=== PATIENT | male | born 1935 | race Two or more races ===

== ENCOUNTER → 2017-06-20 | Outpatient (REF) | payer MEDICARE, BC | LOC: M LAB REF 17:30 | PROVIDERS: ATTEND Surgery | DX: E11.621 Type 2 diabetes mellitus with foot ulcer (principal); L97.514 Non-pressure chronic ulcer of other part of right foot with necrosis of bone ==

== ENCOUNTER → 2017-07-04 | Outpatient (CLI) | payer MEDICARE, BC ==
--- NOTE | 2017-07-04 13:37 | REP ---
Right lower extremity Doppler arterial ultrasound. History: Type 2 diabetes with foot ulcer. Arterial Doppler findings: The distal calf arteries are noncompressible and ankle brachial indices were therefore unobtainable. Significant atherosclerotic plaquing is seen with evidence of moderate stenosis of the common femoral artery on the right, severe stenosis of proximal superficial femoral artery and occlusion in the proximal to mid superficial femoral artery. The distal SFA reconstitutes. Monophasic flow is seen fairly slow in popliteal, anterior tibial and posterior tibial and proximal calf. Severe calcification is seen in the distal anterior and posterior tibial arteries which are noncompressible. Doppler velocity flow chart: Right lower extremity: Right BRUSH MACHINE SETTER 79 cm/s Profunda 110 Proximal SFA 164 Mid SFA 0 Distal SFA 24, monophasic Popliteal 25 Proximal MARQUEZ 25 Tibioperoneal trunk 19 Proximal PROJECT BUILDER 20 Distal PROJECT BUILDER 43 Distal MARQUEZ 21 Signed by Randy Hunter MD 07/04/2017 03:49 P
== END ==
LOC: M RAD 10:36
PROVIDERS: ATTEND Surgery
DX: E11.621 Type 2 diabetes mellitus with foot ulcer (principal); M79.89 Other specified soft tissue disorders

== ENCOUNTER → 2017-08-12 | Outpatient (CLI) | payer MEDICARE, BC ==
[~2017-08-12] MED LIST: CLOPIDOGREL 75 MG TAB As Ordered; HEPARIN 1,000 UNITS/ML 10ML VIAL (FOR RADIOLOGY& DIALYSIS ONLY) As Ordered; ISOVUE-300 61% 50ML VIAL (Q9967) As Ordered; MIDAZOLAM INJ 2 MG/2 ML VIAL (J2250) As Ordered; fentaNYL 100 MCG/2 ML INJECTION (J3010) As Ordered
== END | disposition home or self-care (01) ==
LOC: M IRPRO 07:32
DX: I70.235 Atherosclerosis of native arteries of right leg with ulceration of other part of foot (principal); E11.621 Type 2 diabetes mellitus with foot ulcer; L97.519 Non-pressure chronic ulcer of other part of right foot with unspecified severity
CPT/HCPCS: 37225

== ENCOUNTER → 2017-10-10 | Outpatient (REF) | payer MEDICARE, BC | LOC: M LAB REF 16:17 | DX: D23.71 Other benign neoplasm of skin of right lower limb, including hip (principal); L94.2 Calcinosis cutis; E11.621 Type 2 diabetes mellitus with foot ulcer; L97.514 Non-pressure chronic ulcer of other part of right foot with necrosis of bone | CPT/HCPCS: 88304 ==

== ENCOUNTER → 2017-10-21 | Outpatient (REF) | payer MEDICARE, BC ==
[2017-10-21 15:59] LABS: BASO # 0.1 10^3/uL (0.0-0.2); BASO % 0.6 % (0.0-1.0); EOS % 0.2 % (0.0-3.0); HEMOGLOBIN 14.5 g/dl (13.5-17.5); IMMATURE GRANULOCYTE % 0.7 % (0-3.0); LYMPH # 0.8 10^3/uL (1.5-4.5); MEAN CORPUSCULAR HEMOGLOBIN 29.8 pg (27.0-33.0); MEAN CORPUSCULAR VOLUME 90.5 fl (80.0-96.0); MONO # 0.6 10^3/uL (0.0-0.8); MONO % 5.7 % (0.0-5.0); NEUTROPHILS # 8.4 10^3/uL (1.8-7.7); NEUTROPHILS % 84.8 % (36.0-66.0); PLATELET COUNT, AUTOMATED 256 10^3/uL (150-450); RED BLOOD COUNT 4.86 10^6/uL (4.30-6.10); RED CELL DISTRIBUTION WIDTH 13.4 % (11.5-14.5); WHITE BLOOD COUNT 9.9 10^3/uL (4.0-10.0)
[2017-10-21 16:10] LABS: ANION GAP 7 MEQ/L (8-16); BLOOD UREA NITROGEN 28 MG/DL (7-18); C REACTIVE PROTEIN QUANTITATIV < 0.30 MG/DL (0.00-0.30); CALCIUM LEVEL 9.5 MG/DL (8.8-10.2); CARBON DIOXIDE LEVEL 29 MEQ/L (21-32); CHLORIDE LEVEL 104 MEQ/L (98-107); CREATININE FOR GFR 1.04 MG/DL (0.70-1.30); GLOMERULAR FILTRATION RATE > 60.0 (>35); GLUCOSE, FASTING 193 MG/DL (70-100); POTASSIUM SERUM 4.7 MEQ/L (3.5-5.1); SODIUM LEVEL 140 MEQ/L (136-145)
[2017-10-21 16:12] LABS: ESTIMATED AVERAGE GLUCOSE 197 MG/DL (60-110); HEMOGLOBIN A1c 8.5 %
[2017-10-21 16:26] LABS: ERYTHROCYTE SEDIMENTATION RATE 12 mm/hr (0-20)
== END ==
LOC: M LABDRAW1 15:34
DX: M86.8X7 Other osteomyelitis, ankle and foot (principal); E11.621 Type 2 diabetes mellitus with foot ulcer; Z79.84 Long term (current) use of oral hypoglycemic drugs
CPT/HCPCS: 83036

== ENCOUNTER → 2017-10-24 | Outpatient (REF) | payer MEDICARE, BC | LOC: M LAB REF 16:31 | DX: E11.621 Type 2 diabetes mellitus with foot ulcer (principal) | CPT/HCPCS: 87186 ==

== ENCOUNTER → 2017-12-16 | Outpatient (REF) | payer MEDICARE, BC ==
[2017-12-16 18:12] LABS: ANION GAP 8 MEQ/L (8-16); BLOOD UREA NITROGEN 21 MG/DL (7-18); C REACTIVE PROTEIN QUANTITATIV < 0.30 MG/DL (0.00-0.30); CALCIUM LEVEL 9.3 MG/DL (8.8-10.2); CARBON DIOXIDE LEVEL 29 MEQ/L (21-32); CHLORIDE LEVEL 105 MEQ/L (98-107); CREATININE FOR GFR 0.87 MG/DL (0.70-1.30); GLOMERULAR FILTRATION RATE > 60.0 (>35); GLUCOSE, FASTING 163 MG/DL (70-100); POTASSIUM SERUM 4.3 MEQ/L (3.5-5.1); SODIUM LEVEL 142 MEQ/L (136-145)
[2017-12-16 18:27] LABS: BASO % 0.4 % (0.0-1.0); EOS # 0.1 10^3/uL (0.0-0.50); EOS % 0.7 % (0.0-3.0); HEMATOCRIT 43.3 % (42.0-52.0); HEMOGLOBIN 14.4 g/dl (13.5-17.5); IMMATURE GRANULOCYTE % 0.6 % (0-3.0); LYMPH % 8.8 % (24.0-44.0); MEAN CORPUSCULAR HEMOGLOBIN 30.8 pg (27.0-33.0); MEAN CORPUSCULAR HGB CONC 33.3 g/dl (32.0-36.5); MEAN CORPUSCULAR VOLUME 92.7 fl (80.0-96.0); MONO # 0.9 10^3/uL (0.0-0.8); MONO % 7.9 % (0.0-5.0); NEUTROPHILS # 8.9 10^3/uL (1.8-7.7); NEUTROPHILS % 81.6 % (36.0-66.0); PLATELET COUNT, AUTOMATED 220 10^3/uL (150-450); RED BLOOD COUNT 4.67 10^6/uL (4.30-6.10); RED CELL DISTRIBUTION WIDTH 13.1 % (11.5-14.5)
[2017-12-16 19:13] LABS: ERYTHROCYTE SEDIMENTATION RATE 7 mm/hr (0-20)
== END ==
LOC: M SFHCWOUN 14:31
DX: M86.671 Other chronic osteomyelitis, right ankle and foot (principal)
CPT/HCPCS: 80048

== ENCOUNTER → 2018-04-15 | Outpatient (REF) | payer MEDICARE, BC | LOC: M LAB REF 17:38 | DX: M86.171 Other acute osteomyelitis, right ankle and foot (principal); M79.89 Other specified soft tissue disorders; E11.621 Type 2 diabetes mellitus with foot ulcer; L97.514 Non-pressure chronic ulcer of other part of right foot with necrosis of bone | CPT/HCPCS: 88302 ==

== ENCOUNTER → 2018-04-27 | Outpatient (CLI) | payer MEDICARE, BC ==
[2018-04-27 17:26] LABS: BASO # 0.1 10^3/uL (0.0-0.2); BASO % 0.7 % (0.0-1.0); EOS % 0.4 % (0.0-3.0); HEMATOCRIT 43.8 % (42.0-52.0); HEMOGLOBIN 14.4 g/dl (13.5-17.5); LYMPH # 0.9 10^3/uL (1.5-4.5); MEAN CORPUSCULAR HEMOGLOBIN 29.9 pg (27.0-33.0); MEAN CORPUSCULAR HGB CONC 32.9 g/dl (32.0-36.5); MEAN CORPUSCULAR VOLUME 90.9 fl (80.0-96.0); MONO # 0.6 10^3/uL (0.0-0.8); MONO % 5.1 % (0.0-5.0); NEUTROPHILS # 9.1 10^3/uL (1.8-7.7); NEUTROPHILS % 84.8 % (36.0-66.0); PLATELET COUNT, AUTOMATED 264 10^3/uL (150-450); RED BLOOD COUNT 4.82 10^6/uL (4.30-6.10); RED CELL DISTRIBUTION WIDTH 13.3 % (11.5-14.5); WHITE BLOOD COUNT 10.7 10^3/uL (4.0-10.0)
[2018-04-27 17:45] LABS: ANION GAP 6 MEQ/L (8-16); BLOOD UREA NITROGEN 23 MG/DL (7-18); CALCIUM LEVEL 9.3 MG/DL (8.8-10.2); CARBON DIOXIDE LEVEL 31 MEQ/L (21-32); CHLORIDE LEVEL 102 MEQ/L (98-107); CREATININE FOR GFR 0.98 MG/DL (0.70-1.30); GLOMERULAR FILTRATION RATE > 60.0 (>35); GLUCOSE, FASTING 235 MG/DL (70-100); POTASSIUM SERUM 4.4 MEQ/L (3.5-5.1); SODIUM LEVEL 139 MEQ/L (136-145)
== END ==
LOC: M LAB 16:07
DX: I70.235 Atherosclerosis of native arteries of right leg with ulceration of other part of foot (principal); L97.519 Non-pressure chronic ulcer of other part of right foot with unspecified severity; E11.621 Type 2 diabetes mellitus with foot ulcer
CPT/HCPCS: 80048

== ENCOUNTER → 2018-05-18 | Outpatient (CLI) | payer MEDICARE, BC ==
[~2018-05-18] MED LIST changes: -CLOPIDOGREL 75 MG TAB As Ordered; +LIDOCAINE 2% MDV 20 ML VIAL As Ordered
== END | disposition home or self-care (01) ==
LOC: M IRPRO 06:07
DX: I70.235 Atherosclerosis of native arteries of right leg with ulceration of other part of foot (principal); E11.621 Type 2 diabetes mellitus with foot ulcer; L97.519 Non-pressure chronic ulcer of other part of right foot with unspecified severity
CPT/HCPCS: 37220

== ENCOUNTER → 2018-11-26 | Outpatient (REF) | LOC: M LAB REF 11:20 | DX: J18.9 Pneumonia, unspecified organism (principal) ==

== ENCOUNTER → 2018-12-09 | Outpatient (CLI) | payer MEDICARE, BC ==
[~2018-12-09] MED LIST changes: +BUPIVACAINE HCL 0.5% 10 ML VIAL As Ordered ONE; -HEPARIN 1,000 UNITS/ML 10ML VIAL (FOR RADIOLOGY& DIALYSIS ONLY) As Ordered; +HEPARIN 1,000 UNITS/ML 10ML VIAL (FOR RADIOLOGY& DIALYSIS ONLY) As Ordered ONE; -ISOVUE-300 61% 50ML VIAL (Q9967) As Ordered; +ISOVUE-300 61% 50ML VIAL (Q9967) As Ordered ONE; -LIDOCAINE 2% MDV 20 ML VIAL As Ordered; +LIDOCAINE 2% MDV 20 ML VIAL As Ordered ONE; -MIDAZOLAM INJ 2 MG/2 ML VIAL (J2250) As Ordered; +MIDAZOLAM INJ 2 MG/2 ML VIAL (J2250) As Ordered ONE; +PROTAMINE SULF INJ 50 MG/5 ML VIAL (J2720) As Ordered ONE; +diphenhydrAMINE INJ 50MG/ML VIAL (J1200) As Ordered ONE; -fentaNYL 100 MCG/2 ML INJECTION (J3010) As Ordered; +fentaNYL 100 MCG/2 ML INJECTION (J3010) As Ordered ONE
--- NOTE | 2018-12-19 14:24 | REPIR ---
DATE OF PROCEDURE: 12/09/2018 ATTENDING SURGEON: Philippe Alvarez MD ASSISTANTS: Amber Lindsey and Jacy Amaya PREOPERATIVE DIAGNOSES: Left foot pain and nonhealing left toe ulcer on 2nd and 3rd toes, as well as the base of the left 5th toe. POSTOPERATIVE DIAGNOSES: Left foot pain and nonhealing left toe ulcer on 2nd and 3rd toes, as well as the base of the left 5th toe. PROCEDURE: Aortogram, iliofemoral angiogram, selective left common femoral artery catheter placement with left lower extremity angiogram, right common femoral arteriotomy closure with a Mynx closure device. INDICATION: The patient is an 83-year-old male with nonhealing left foot ulcers who will undergo a left lower extremity angiogram. ANESTHESIA: Local with 10 mL of 2% lidocaine mixed with 0.5% Marcaine. FLUORO TIME: 1.7 minutes. CONTRAST: 10.5 mL of Isovue-300. HEPARIN: None. COMPLICATION: None. DRAINS: None. SPECIMENS: None. IMPLANTS: None. DESCRIPTION OF PROCEDURE: The patient was taken to the angiography suite, placed supine on the angiography room table, and then prepped and draped in a standard surgical fashion. The right common femoral artery was cannulated with a micropuncture needle. A catheter placed in the aorta, and an aortogram was performed. The catheter was pulled down to the level of the bifurcation of the iliac arteries, and an iliofemoral angiogram was performed. The catheter was directed over the bifurcation of the iliac arteries, placed in the left common femoral artery, and a left lower extremity angiogram was performed. Catheters and wires were removed. A Mynx closure was used to close the arteriotomy in the right common femoral artery with an additional 10 minutes of adjunctive pressure applied for hemostasis. Dressings were then applied. The patient tolerated the procedure well. All instrument, sponge, and needle counts were correct at the end of the case. There were no complications. Dr. Alvarez was present for and directed the entire case. The patient was transferred to the holding and subsequently discharged in stable condition.
== END | disposition home or self-care (01) ==
LOC: M IRPRO 07:03
PROVIDERS: ATTEND Physician Assistant
DX: L97.529 Non-pressure chronic ulcer of other part of left foot with unspecified severity (principal); M79.672 Pain in left foot
CPT/HCPCS: 36246; 75710; C1760; C1769; C1887; C1894; G0269; Q9967

== ENCOUNTER → 2019-02-25 | Outpatient (CLI) | payer MEDICARE, BC ==
[~2019-02-25] MED LIST changes: +ADV500INH; +ALBU8.5H; -BUPIVACAINE HCL 0.5% 10 ML VIAL As Ordered ONE; +CLOP75TA2; +GABA-1171 PO; +GLIP5TAB20; +IPRA0.00; +LIDOCAINE 1% MDV 20ML VIAL As Ordered ONE; -LIDOCAINE 2% MDV 20 ML VIAL As Ordered ONE; +METF500T13 PO; +MYCO15CR; +PANT20TA2 PO; +PRAV40TA2 PO; +PRED10TA2 PO; +PRED5TA; -PROTAMINE SULF INJ 50 MG/5 ML VIAL (J2720) As Ordered ONE
[2019-02-25 07:20] LABS: INR 0.92; PROTHROMBIN TIME 12.1 SECONDS (11.8-14.0)
--- NOTE | 2019-02-25 08:01 | HPEPDOC ---
General Date of Admission Date of Service: Feb 25, 2019 Chief Complaint non healing left foot ulcer Source: Patient, Family History of Present Illness The patient is a 83-year-old male referred to my service by Dr. Gann for nonhealing left foot ulcer. Patient describes several months of pain in the left foot worse with walking and recently also bothering him at rest when he is flat in bed. Patient describes waking up and hanging feet over the edge of the bed for relief. No current symptoms in the right leg. Describes small wound which is healed up on the right foot. Patient was previously evaluated by vascular surgery and found to have atherosclerotic disease iliac to runoff. Patient was stented in the iliac and SFA with multiple stents and treated with angioplasty. Patient feels symptoms did not improve after the procedure. Patient is on Plavix but does not take aspirin. Patient denies angina, chest pain, shortness of breath. No prior history of heart attacks or stroke. Patient is on statin for hyperlipidemia and has DM well controlled on oral antidiabetic medication. Denies hypertension or use of antihypertensives. Former smoker quit 20 years ago, currently does suffer with symptoms of emphysema. Home Medications Scheduled Gabapentin (Gabapentin) 100 Mg Capsule, 1 TAB PO TID, (Reported) Metformin HCl (Metformin HCl) 500 Mg Tablet, 2 TAB PO BID, (Reported) Pantoprazole Sodium (Pantoprazole Sodium) 20 Mg Tablet.dr, 1 TAB PO DAILY, (Reported) Pravastatin Sodium (Pravastatin Sodium) 40 Mg Tablet, 1 TAB PO DAILY, (Reported) Prednisone (Prednisone) 10 Mg Tablet, 1 TAB PO DAILY, (Reported) Miscellaneous Medications Albuterol Sulfate (Albuterol Sulfate Hfa) 8.5 Gm Hfa.aer.ad, (Reported) Clopidogrel Bisulfate (Clopidogrel) 75 Mg Tablet, (Reported) Glipizide (Glipizide ER) 5 Mg Tab.er.24, (Reported) Ipratropium/Albuterol Sulfate (Iprat-Albut 0.5-3(2.5) mg/3 ml) 3 Ml Ampul.neb, (Reported) Nystatin/Triamcinolone (Nystatin-Triamcinolone Cream) 15 Gm Cream..g., (Reported) Prednisone (Prednisone) 5 Mg Tablet, (Reported) Salmeterol/Fluticasone (Advair 500-50 Diskus) 1 Each Blst.w.dev, (Reported) Past Medical History Medical History DM Hyperlipidemia Surgical History left leg stents iliac and SFA Family History Significant Family History: Heart disease Social History * Smoker: former Smoker Alcohol: Denies Drugs: denies lives alone. independent with ADLs A-FIB/CHADSVASC A-FIB History Current/History of A-Fib/PAF?: No Current PO Anticoag Therapy: No Physical Examination General Exam: Positive: No Acute Distress Eye Exam: Positive: EOMI ENT Exam: Positive: Tongue Midline Chest Exam: Positive: Rhonchi Heart Exam: Positive: Rate Normal Abdomen Exam: Positive: Soft Skin Exam: Positive: Lesion Neuro Exam: Positive: Normal Speech Psych Exam: Positive: Mental status NL Other physical findings No clubbing No scleral icterus Heart rate normal Hyperinflated chest with poor breath sounds Abdomen soft non tender. No pulsatile mass left lower extremity: Mild pedal edema. femoral pulse 2 + popliteal 1+ AT /PT non palpable. Deep right lateral ulcer, site; lateral along margin of fifth metatarsal, 2 cm diameter, round, well circumscribed, and exquisitely tender Right lower extremity: No edema Femoral 2 + popliteal 1 + AT/PT non palpable. No deep wounds. Vital Signs Vital Signs Date Time Temp Pulse Resp B/P (MAP) Pulse Ox O2 Delivery O2 Flow Rate FiO2 02/25/19 07:03 97.6 71 20 97 Laboratory Data Labs 24H Laboratory Tests 2 02/25/19 06:50: Prothrombin Time 12.1, Prothromb Time International Ratio 0.92 CBC/BMP Assessment/Plan PAD with non healing left foot arterial ulcer. Plan left leg angiogram +/ angioplasty and stent if required. Plan / VTE VTE Prophylaxis Ordered?: No DAVEY ELMORE MD Feb 25, 2019 08:01
--- NOTE | 2019-02-25 08:03 | IRMSE ---
[facility] IR Moderate Sedation Eval. Date and Time Date: Feb 25, 2019 Time: 08:02 ASA Classification ASA Classification: II-Mild systemic disease Mallampati Score: I NPO: Yes Obstructive Sleep Apnea: No Interval Plan: moderate sedation DAVEY ELMORE MD Feb 25, 2019 08:03
[2019-02-25 08:05] LABS: HEMATOCRIT 43.2 % (42.0-52.0); MEAN CORPUSCULAR HEMOGLOBIN 29.5 pg (27.0-33.0); MEAN CORPUSCULAR HGB CONC 32.4 g/dl (32.0-36.5); MEAN CORPUSCULAR VOLUME 90.9 fl (80.0-96.0); PLATELET COUNT, AUTOMATED 233 10^3/uL (150-450); RED BLOOD COUNT 4.75 10^6/uL (4.30-6.10); WHITE BLOOD COUNT 9.8 10^3/uL (4.0-10.0)
[2019-02-25 08:45] LABS: BLOOD UREA NITROGEN 15 MG/DL (7-18); CARBON DIOXIDE LEVEL 30 MEQ/L (21-32); CHLORIDE LEVEL 105 MEQ/L (98-107); CREATININE FOR GFR 0.93 MG/DL (0.70-1.30); GLOMERULAR FILTRATION RATE > 60.0 (>35); GLUCOSE, FASTING 93 MG/DL (70-100); POTASSIUM SERUM 3.8 MEQ/L (3.5-5.1); SODIUM LEVEL 142 MEQ/L (136-145)
[2019-02-25 08:46] LABS: CALCIUM LEVEL 9.2 MG/DL (8.8-10.2)
--- NOTE | 2019-02-25 10:05 | POST-OPPD ---
Postoperative Procedure Note Date Of Procedure: Feb 25, 2019 Time Of Procedure: 10:02 PREOPERATIVE DIAGNOSIS: PAD POSTOPERATIVE DIAGNOSIS: PAD FINDINGS: atherosclerotic disease left SFA and popliteal. One vessel run off to the foot PROCEDURE: left leg angiogram. angioplasty SFA/pop SURGEON: doc ANESTHESIA: moderate sedation ESTIMATED BLOOD LOSS: < 15 ml COMPLICATIONS: none POSTOPERATIVE CONDITION: stable DAVEY ELMORE MD Feb 25, 2019 10:05
--- NOTE | 2019-02-25 16:03 | REP ---
Left leg angiogram. Selective left iliac artery catheterization. Selective left superficial femoral artery catheterization. Left common femoral artery angioplasty. Left Superficial femoral artery angioplasty. Left Popliteal artery angioplasty. Clinical Information: Non healing left foot ulcer. Peripheral artery disease, treated previously with bilateral iliac stents and extensive left superficial femoral artery stenting. Physician[s]: Dr Smyth.Procedure: The patient was advised of the benefits, risks, and alternatives of the procedure and informed consent was obtained.A time out was performed with verification of the patient's name, MRN, site of procedure, and type of procedure to be performed. The patient was positioned in the supine position on the angiographic table. The site was prepped and draped in the usual sterile fashion.Moderate sedation was performed by the physician including the presence of an independent trained observer that assisted in monitoring the patient's level of consciousness and physiological status. Following the administration of Fentanyl and Versed, the physician spent 90 minutes of continuous [id number]-[id number] time with the patient. A engraver hand hard metals radiograph reveals bilateral iliac artery stents and left superficial femoral artery stents. The right femoral artery was accessed with a micropuncture kit. A Ele.me wire was advanced into the aorta. The micropuncture sheath was exchanged over the wire for a a 5-Mauritian vascular sheath. A 5-Mauritian flush catheter was advanced over the wire and used to catheterize the abdominal aorta. A pelvic arteriogram was performed. This demonstrates atherosclerotic disease of the abdominal aorta and bilateral iliac arteries. Patent bilateral common iliac, internal and external iliac arteries. There is flow through the bilateral external iliac stents without significant stenosis. There is atherosclerotic disease in the left common femoral and SFA with slow flow. The sheath was advanced over the wire into the left common iliac artery. The catheter was exchanged for a glide catheter which was used to selectively catheterize the left external iliac artery. An arteriogram was performed and this demonstrates sluggish flow in the left superficial femoral artery with intra and inter stent irregularity and stenosis. The diagnostic catheter was advanced over the wire and used to selectively catheterize the left superficial femoral artery. An arteriogram was performed and this demonstrates a patent popliteal artery and patent peroneal artery. The proximal anterior tibial artery is occluded. The peroneal artery appears hypertrophic. The proximal posterior tibial artery is patent. With the diagnostic catheter situated in the SFA, a run off left lower extremity arteriogram to the foot, was performed. This demonstrates a patent and hypertrophic peroneal artery, patent to the foot. There is a long segment occlusion of the mid to distal posterior tibial artery. There is extensive collateral supply from the peroneal artery resulting in distal reconstitution of the distal anterior and posterior tibial artery into the foot. The catheter was removed and a 7 mm x 200 mm angioplasty balloon was advanced over the wire, under fluoroscopy guidance and used to angioplasty the left common femoral, superficial femoral and proximal popliteal artery. 5000 units of heparin were administered. Angioplasty balloon was removed over the wire. Post angioplasty arteriogram was performed through the sheath in the left common iliac artery and this demonstrates improved forward flow in the left common femoral, superficial femoral and profunda femoris. No spasm, dissection or extravasation. A follow-up post angioplasty arteriogram was performed of the mid and distal left superficial femoral artery and this demonstrates improved flow through the left superficial femoral artery and popliteal artery. No spasm, dissection or extravasation. A repeat distal runoff was performed post angioplasty. This arteriogram demonstrates intact and improved flow through the existing runoff vessels to the left foot and patent collaterals. No cut off, no embolic occlusion, spasm or extravasation. The catheter, wire and sheath were removed, pressure held and hemostasis achieved. A sterile dressing was applied to the site. Patient tolerated the procedure well and was transferred to [facility] in stable condition. Complications: None. Estimated blood loss: Less than 5 ml. Impression: 1. Pelvic arteriogram and left leg angiogram demonstrates bilateral external iliac stents which are patent. 2. Intermittent long segment stents within the left superficial femoral artery with intra and inter stent irregularity and stenosis. 3. Patent popliteal artery and hypertrophic peroneal artery runoff to the foot. Long segment proximal anterior tibial artery and mid posterior tibial artery occlusions with distal reconstitution into the foot. 4. Successful angioplasty of the left common femoral, superficial femoral and popliteal artery with improved forward flow. 5. Patient to follow up in IR clinic in 2 weeks. The patient is advised to start Aspirin 81 mg daily as well as continue Plavix. Thank you for this referral Electronically Signed by Erin Smyth MD 02/25/2019 04:01 P
[2019-02-25 16:04] VITALS: BP 146/88
== END ==
LOC: M IRPRO 06:29
PROVIDERS: ATTEND Radiology Diagnostic Radiology
DX: I70.245 Atherosclerosis of native arteries of left leg with ulceration of other part of foot (principal); E11.621 Type 2 diabetes mellitus with foot ulcer; L97.522 Non-pressure chronic ulcer of other part of left foot with fat layer exposed; L97.524 Non-pressure chronic ulcer of other part of left foot with necrosis of bone; L97.512 Non-pressure chronic ulcer of other part of right foot with fat layer exposed; E78.5 Hyperlipidemia, unspecified; Z87.891 Personal history of nicotine dependence; Z79.899 Other long term (current) drug therapy; Z79.01 Long term (current) use of anticoagulants
CPT/HCPCS: 37224; 75710; 75774; 80048; 85027; 85610; 99152; 99153; C1725; C1769; C1887; C1894; J2250; J3010; Q9967

== ENCOUNTER → 2019-03-09 | Outpatient (POV) | payer MEDICARE, BC ==
[~2019-03-09] VITALS: Ht 182.9 cm; Wt 79.5 kg
[~2019-03-09] MED LIST changes: -ADV500INH; +ADV500INH INH; -ALBU8.5H; +ALBU8.5H INH; +ASPI81TA85 PO; +BACT800T5 PO; -CLOP75TA2; +CLOP75TA2 PO; +CVS400CA PO; +D3400TAB PO; -GLIP5TAB20; +GLIP5TAB20 PO; -HEPARIN 1,000 UNITS/ML 10ML VIAL (FOR RADIOLOGY& DIALYSIS ONLY) As Ordered ONE; -IPRA0.00; +IPRA0.00 PO; -ISOVUE-300 61% 50ML VIAL (Q9967) As Ordered ONE; -LIDOCAINE 1% MDV 20ML VIAL As Ordered ONE; +LINE1TAB6 PO; -MIDAZOLAM INJ 2 MG/2 ML VIAL (J2250) As Ordered ONE; +MUCI1TAB16 PO; +NYST1CRE15 TOP; +OMEP-218 PO; +SANT250O8 TOP; +TRAM50TA2 PO; +VITA-158 PO; -diphenhydrAMINE INJ 50MG/ML VIAL (J1200) As Ordered ONE; -fentaNYL 100 MCG/2 ML INJECTION (J3010) As Ordered ONE
[2019-03-09 10:02] VITALS: BP 121/58
--- NOTE | 2019-03-10 08:35 | IPNPDOC ---
Text Note Date of Service The patient was seen on 03/09/19. NOTE 83 male presents 2 weeks after left leg angiogram and angioplasty for nonhealing ulcer. On angiogram patient had previously stented SFA with stenosis which was treated with angioplasty. The peroneal artery was patent to the foot and there was indirect collateral flow and reconstitution of the distal posterior tibial and anterior tibial arteries, flowing into the foot. There was improved runoff flow after outflow angioplasty. New skin changes on right second toe. No pain or tenderness. No fevers or chills. No intermittent claudication but patient does not walk far. No rest pain, patient complains more of exquisite tenderness over the ulcer. On examination: Patient appears comfortable at rest. HEENT: No scleral icterus. Chest: Wheezes bilaterally. Heart: Normal rate. Abdomen: Soft nontender. Extremities: Left lower extremity: Warm to touch. Well-circumscribed wound over the lateral f ifth metatarsal. Femoral pulse ++ popliteal pulse ++ dorsalis pedis and posterior tibial ++. Right lower extremity: Cool to touch. No edema. Superficial wound over the second toe. Femoral pulse ++ popliteal pulse + dorsalis pedis and posterior tibialis -. Neuro: Alert and oriented. Imaging: I personally reviewed the same day arterial ultrasound obtained of the right lower extremity. There is multisegment right SFA stenosis. The runoff vessels are heavily calcified and ABIs cannot be obtained. There is flow within the plantar arch. Impression: 83 male with diabetes, history of smoking and known peripheral arterial disease with bilateral foot wounds. Left wound status post angiogram and angioplasty with improved flow will remain under surveillance for the next few weeks. Patient needs right lower extremity angiogram and intervention for outflow stenosis and possible runoff intervention. I will schedule the patient for this procedure to be done under monitored sedation. Thank you for this referral. VS,Fishbone, I+O VS, Fishbone, I+O Vital Signs Date Time Temp Pulse Resp B/P (MAP) Pulse Ox O2 Delivery O2 Flow Rate FiO2 03/09/19 10:02 97.0 73 18 121/58 (79) 100 DAVEY ELMORE MD Mar 10, 2019 08:35
== END ==
LOC: M IRPOV 09:53
PROVIDERS: ATTEND Radiology Diagnostic Radiology
DX: L97.919 Non-pressure chronic ulcer of unspecified part of right lower leg with unspecified severity (principal); L97.909 Non-pressure chronic ulcer of unspecified part of unspecified lower leg with unspecified severity; I73.9 Peripheral vascular disease, unspecified; E11.621 Type 2 diabetes mellitus with foot ulcer; Z87.891 Personal history of nicotine dependence
CPT/HCPCS: 93926; G0463

== ENCOUNTER → 2019-03-09 | Outpatient (CLI) | payer MEDICARE, BC ==
--- NOTE | 2019-03-09 15:01 | REP ---
Right lower extremity duplex arterial ultrasound : Peak Systolic Phasicity Velocity INFORMATION TECH 110 monophasic Profunda 96 monophasic SFA prox 25 monophasic SFA mid 178 monophasic SFA dist 376 monophasic Pop 28 monophasic MARQUEZ prox 40 monophasic Tib/P tr 823 monophasic RETURNED CASE INSPECTOR pr 21 monophasic RETURNED CASE INSPECTOR dst 43 monophasic MARQUEZ dst 10 monophasic There is heavily calcified atheroma throughout the right lower extremity. There is a stenosis in the profunda origin, likely 50%. There is stenosis in the mid SFA. There is stenosis in the distal SFA. There is heavy atheromatous calcification in this area with shadowing resulting in difficulty visualizing the flow. There is stenosis in the proximal 80 a. There are tardus-parvus waveforms throughout the right lower extremity. The arteries of the calf are heavily calcified. Plantar arch flow is identified to the medial and lateral segments. Electronically Signed by Leonardo Garcia MD 03/09/2019 02:52 P
== END ==
LOC: M RAD 11:21
PROVIDERS: ATTEND Radiology Diagnostic Radiology
DX: L97.919 Non-pressure chronic ulcer of unspecified part of right lower leg with unspecified severity (principal); I73.9 Peripheral vascular disease, unspecified

== ENCOUNTER → 2019-03-11 | Outpatient (CLI) | payer MEDICARE, BC ==
[~2019-03-11] MED LIST changes: +ADV500INH; -ADV500INH INH; +ALBU8.5H; -ALBU8.5H INH; -ASPI81TA85 PO; -BACT800T5 PO; +CLOP75TA2; -CLOP75TA2 PO; -CVS400CA PO; -D3400TAB PO; +GLIP5TAB20; -GLIP5TAB20 PO; +HEPARIN 1,000 UNITS/ML 10ML VIAL (FOR RADIOLOGY& DIALYSIS ONLY) As Ordered ONE; +IPRA0.00; -IPRA0.00 PO; +ISOVUE-300 61% 50ML VIAL (Q9967) As Ordered ONE; +LIDOCAINE 1% MDV 20ML VIAL As Ordered ONE; +LIDOCAINE 2% MDV 20 ML VIAL As Ordered ONE; -LINE1TAB6 PO; +MIDAZOLAM INJ 2 MG/2 ML VIAL (J2250) As Ordered ONE; -MUCI1TAB16 PO; -NYST1CRE15 TOP; -OMEP-218 PO; -SANT250O8 TOP; -TRAM50TA2 PO; -VITA-158 PO; +diphenhydrAMINE INJ 50MG/ML VIAL (J1200) As Ordered ONE; +fentaNYL 100 MCG/2 ML INJECTION (J3010) As Ordered ONE
--- NOTE | 2019-03-11 10:58 | IRHP ---
[facility] IR Pre-Procedure H & P General Date of Service: Mar 11, 2019 Procedure: Same Day Surgery Interval History and Physical I have seen the patient and reviewed last H & P performed within 30 days. There is no significant interval change. History of Present Illness Chief Complaint The patient is a 83-year-old male admitted with a reason for visit of PAD. PRE-PROCEDURE DIAGNOSIS: pad HEART: normal rate. LUNGS: normal at rest. ASA Classification ASA Classification: III-Severe systemic dis. Mallampati Score: I NPO: Yes Problems with prior sedation: No Obstructive Sleep Apnea: No Plan moderate sedation Allergies Coded Allergies: No Known Allergies (Unverified , 03/11/19) Home Medications Scheduled Gabapentin (Gabapentin), 1 TAB PO TID, (Reported) Metformin HCl (Metformin HCl), 2 TAB PO BID, (Reported) Pantoprazole Sodium (Pantoprazole Sodium), 1 TAB PO DAILY, (Reported) Pravastatin Sodium (Pravastatin Sodium), 1 TAB PO DAILY, (Reported) Prednisone (Prednisone), 1 TAB PO DAILY, (Reported) Miscellaneous Medications Albuterol Sulfate (Albuterol Sulfate Hfa), (Reported) Clopidogrel Bisulfate (Clopidogrel), (Reported) Glipizide (Glipizide ER), (Reported) Ipratropium/Albuterol Sulfate (Iprat-Albut 0.5-3(2.5) mg/3 ml), (Reported) Salmeterol/Fluticasone (Advair 500-50 Diskus), (Reported) Discontinued Medications Nystatin/Triamcinolone (Nystatin-Triamcinolone Cream), (Reported) Discontinued Reason: Pt states not taking Prednisone (Prednisone), (Reported) Discontinued Reason: Pt states not taking VS, I&O, 24H, Fishbone Vital Signs/I&O Vital Signs Date Time Temp Pulse Resp B/P (MAP) Pulse Ox O2 Delivery O2 Flow Rate FiO2 03/11/19 08:50 97.8 78 20 99 3 DAVEY ELMORE MD Mar 11, 2019 10:58
--- NOTE | 2019-03-11 12:34 | POST-OPPD ---
Postoperative Procedure Note Date Of Procedure: Mar 11, 2019 Time Of Procedure: 12:32 PREOPERATIVE DIAGNOSIS: SFA stenosis POSTOPERATIVE DIAGNOSIS: SFA stenosis FINDINGS: SFA stenosis PROCEDURE: angioplasty SFA pop, CF SURGEON: doc ANESTHESIA: moderate sedation ESTIMATED BLOOD LOSS: < 15 ml COMPLICATIONS: none POSTOPERATIVE CONDITION: stable DAVEY ELMORE MD Mar 11, 2019 12:34
--- NOTE | 2019-03-11 16:38 | REP ---
Right leg angiogram. Selective right iliac artery catheterization. Selective superficial femoral artery catheterization. Superficial femoral artery angioplasty. Common femoral artery angioplasty. Popliteal artery angioplasty. Clinical Information: Peripheral artery disease. New symptoms in right leg. Pain and new wound. Abnormal arterial ultrasound findings. Physician: Dr Smyth.Procedure: The patient was advised of the benefits, risks, and alternatives of the procedure and informed consent was obtained.A time out was performed with verification of the patient's name, MRN, site of procedure, and type of procedure to be performed. The patient was positioned in the supine position on the angiographic table. The site was prepped and draped in the usual sterile fashion.Moderate sedation was performed by the physician including the presence of an independent trained observer that assisted in monitoring the patient's level of consciousness and physiological status. Following the administration of Fentanyl and Versed, the physician spent 60 minutes of continuous [id number] time with the patient. A starch crab radiograph reveals bilateral iliac stents. The left femoral artery was accessed with a micropuncture kit. A Spring[employer] wire was advanced into the aorta. The micropuncture sheath was exchanged over the wire for a a 5-Tongan vascular sheath. A 5-Tongan flush catheter was advanced over the wire and used to catheterize the abdominal aorta. A pelvic arteriogram was performed concentrating on the right side and this demonstrates patent stent within the right external iliac artery. Patent right common iliac, external and internal iliac arteries. The catheter in conjunction with the wire was used to catheterize the right superficial femoral artery. An arteriogram was performed and this demonstrates reflux into the hypertrophic profunda femoris branch with good flow. There is calcification of the right superficial femoral artery. There is extensive atherosclerotic stenosis throughout the right superficial femoral artery. Repeat arteriogram was performed with the diagnostic catheter in the SFA and this demonstrates patent popliteal artery and patent proximal three-vessel runoff. Runoff was performed down to the right foot with the diagnostic catheter in the SFA . This demonstrates patent three-vessel runoff to the right foot and complete arch. A 6 mm x 200 mm angioplasty balloon was advanced over the wire under fluoro guidance and positioned in the distal SFA and popliteal artery. Heparin was administered and prolonged angioplasty was performed. The angioplasty balloon was deflated under fluoro guidance and repositioned over the wire. Repeat angioplasty was performed over the mid and proximal superficial femoral artery. The angioplasty balloon was deflated under fluoro guidance and repositioned to the common femoral and proximal superficial femoral artery. Repeat angioplasty was performed. The angioplasty balloon was removed over the wire. A glide cath was advanced over the wire to the popliteal artery. Post angioplasty arteriogram was performed and this demonstrates patent antegrade flow in the three runoff vessels below the knee and good flow in the popliteal artery. No vessel cutoff or spasm. The diagnostic catheter was retracted into the superficial femoral artery and a repeat arteriogram was performed. This demonstrates improved appearance of the distal superficial femoral artery. The catheter was refracted further back into the superficial femoral artery and a post angioplasty arteriogram was performed. This demonstrates improved caliber of the proximal and mid superficial femoral artery and good forward flow. No vessel spasm, dissection or injury. No extravasation. Given the improved appearance of the entire superficial femoral artery, stenting was not required. Catheter was removed. A 5-Tongan Mynx device was used to close the left groin arteriotomy and the sheath was removed. Hemostasis achieved. A sterile dressing was applied to the site. Patient tolerated the procedure well. The patient was transferred to [facility] in stable condition. Complications: None. Estimated blood loss: Less than 15 ml. Impression: 1. Right leg angiogram demonstrates diffuse atherosclerotic stenosis throughout the superficial femoral artery. 2. Patent popliteal artery and three-vessel runoff to the right foot. 3. Successful angioplasty of the right superficial femoral artery with improved outflow. 4. Patient to follow up in IR clinic in 4 weeks. Continue follow up with wound care. Thank you for this referral. Electronically Signed by Erin Smyth MD 03/11/2019 04:36 P
[2019-03-11 16:45] VITALS: BP 106/51
== END ==
LOC: M IRPRO 08:31
PROVIDERS: ATTEND Radiology Diagnostic Radiology
DX: I70.221 Atherosclerosis of native arteries of extremities with rest pain, right leg (principal)
CPT/HCPCS: 37224; 75710; C1725; C1760; C1769; C1887; C1894; J1200; J2250; J3010; Q9967

== ENCOUNTER → 2019-05-06 | Outpatient (REF) ==
[~2019-05-06] MED LIST changes: -ADV500INH; +ADV500INH INH; -ALBU8.5H; +ALBU8.5H INH; +ASPI81TA85 PO; -CLOP75TA2; +CLOP75TA2 PO; +D3400TAB PO; -GLIP5TAB20; +GLIP5TAB20 PO; -HEPARIN 1,000 UNITS/ML 10ML VIAL (FOR RADIOLOGY& DIALYSIS ONLY) As Ordered ONE; -IPRA0.00; +IPRA0.00 PO; -ISOVUE-300 61% 50ML VIAL (Q9967) As Ordered ONE; -LIDOCAINE 1% MDV 20ML VIAL As Ordered ONE; -LIDOCAINE 2% MDV 20 ML VIAL As Ordered ONE; -MIDAZOLAM INJ 2 MG/2 ML VIAL (J2250) As Ordered ONE; +TRAM50TA2 PO; +VITA-158 PO; -diphenhydrAMINE INJ 50MG/ML VIAL (J1200) As Ordered ONE; -fentaNYL 100 MCG/2 ML INJECTION (J3010) As Ordered ONE
== END ==
LOC: M LAB LCGH 15:30
PROVIDERS: ATTEND Surgery
DX: Z00.00 Encounter for general adult medical examination without abnormal findings (principal)

== ENCOUNTER 2019-05-17 12:14 | Inpatient (IN) | payer MEDICARE, BC ==
[~2019-05-17] VITALS: Ht 182.9 cm; Wt 84.1 kg
[~2019-05-17 12:14] MED LIST changes: -ASPI81TA85 PO; -D3400TAB PO; -TRAM50TA2 PO; -VITA-158 PO
[2019-05-17 16:24] VITALS: BP 168/57
[2019-05-17] MEDS ORDERED: TRAM50TA2 PO (18:04)
[2019-05-17] MEDS ORDERED: VITA-158 PO (18:04)
[2019-05-17] MEDS ORDERED: D3400TAB PO (18:04)
[2019-05-17] MEDS ORDERED: ASPI81TA85 PO (18:04)
[2019-05-17] MEDS ORDERED: GLUCAGON FOR INJ 1 MG VIAL (J1610) SC PRN (18:30)
[2019-05-17] MEDS ORDERED: DEXTROSE 50% 50 ML SYRINGE IV PRN (18:30)
[2019-05-17] MEDS ORDERED: GLUCOSE 4 GM CHEW TABLET PO PRN (18:30)
--- NOTE | 2019-05-17 18:32 | CR.PDOC ---
General Date of Consultation: May 17, 2019 Consultation REASON FOR CONSULTATION/CHIEF COMPLAINT: Left foot wound HISTORY OF PRESENT ILLNESS: Mr. Lino is a very pleasant 83-year-old gentleman who was admitted with the left lateral foot wound that is gone progressively worse, is concerning for infection, and he is admitted for workup of this as well as medical management. The patient had an arteriogram with Dr. Smyth recently, and she intervened on the SFA, but the tibial vessels were not addressed. Unfortunately, without in-line flow to the foot, it is unlikely that this wound will heal. Ideally, we could open up flow through the anterior tibial artery which is the angiosome for this lateral portion of the foot, but we would be pleased if we could open up in-line flow through any of the 3 tibials. Our goal will be to open up all 3 if possible. He has very thready flow below the knee, with heavy disease throughout the entire tibial system. At the ankle, there is very little flow getting across to the foot. Risks benefits and alternatives to an arteriogram with attempt to improve perfusion were explained to the patient and his family at the bedside. We had a lengthy discussion and all questions were answered. Informed consent was obtained. ALLERGIES: Please see below. HOME MEDICATIONS: Please see below. PAST MEDICAL HISTORY: Hyperlipidemia, diabetes, COPD, neuropathy, GERD, heart disease PAST SURGICAL HISTORY: Cholecystectomy, multiple lower extremity arteriograms bilaterally FAMILY HISTORY: Heart disease, cancer SOCIAL HISTORY: Patient quit smoking in 1999. Denies alcohol or illicit drug use. REVIEW OF SYSTEMS: CONSTITUTIONAL: Positive fatigue HEENT: Denies new vision changes CARDIOVASCULAR: Denies chest pain RESPIRATORY: Positive shortness of breath GENITOURINARY: Denies dysuria MUSCULOSKELETAL: Positive claudication, denies back pain GASTROINTESTINAL: Positive reflux SKIN: Positive wound left lateral foot NEUROLOGICAL: Denies headache or seizure PSYCHIATRIC: Denies anxiety depression ENDOCRINE: Positive diabetes HEMATOLOGIC/LYMPHATIC: Positive easy bruising ALLERGIC/IMMUNOLOGIC: Denies PHYSICAL EXAMINATION: VITAL SIGNS: Please see below. GENERAL APPEARANCE: Medically stable HEENT: Normocephalic, vision grossly intact, TMI RESPIRATORY: Slightly coarse breath sounds bilaterally no wheezes, nasal cannula O2 CARDIOVASCULAR: Regular rate and rhythm ABDOMEN: Soft nontender EXTREMITIES: Pulses nonpalpable, monophasic DP and PT signals, dressing intact left lateral foot NEUROLOGICAL: Alert and oriented 3, moves all extremities equally PSYCHIATRIC: Pleasant and cooperative LABORATORY DATA: Please see below. ASSESSMENT/PLAN: Very pleasant 83-year-old gentleman with profound distal vascular disease and nonhealing wound left foot with concern for infection 1. Nothing by mouth after midnight 2. Arteriogram tomorrow afternoon as an add-on case to see if we can improve in- line flow to the foot. We appreciate the opportunity to participate in the care of this patient. Vital Signs/I&O Vital Signs Date Time Temp Pulse Resp B/P (MAP) Pulse Ox O2 Delivery O2 Flow Rate FiO2 05/17/19 16:24 98.2 85 18 168/57 (94) 94 Nasal Cannula 3.0 Allergies Coded Allergies: No Known Allergies (Unverified , 03/11/19) Home Medications Scheduled Ascorbic Acid (Vitamin C) 500 Mg Tablet, 500 MG PO DAILY, (Reported) Aspirin (Aspir 81) 81 Mg Tablet.dr, 81 MG PO DAILY, (Reported) Cholecalciferol (Vitamin D3) (Vitamin D3) 400 Unit Tablet, 400 UNIT PO BID, (Reported) Clopidogrel Bisulfate (Clopidogrel) 75 Mg Tablet, 75 MG PO DAILY, (Reported) Gabapentin (Gabapentin) 100 Mg Capsule, 100 MG PO TID, (Reported) Glipizide (Glipizide ER) 5 Mg Tab.er.24, 5 MG PO DAILY, (Reported) Metformin HCl (Metformin HCl) 500 Mg Tablet, 1,000 MG PO BID, (Reported) Pantoprazole Sodium (Pantoprazole Sodium) 20 Mg Tablet.dr, 20 MG PO DAILY, (Reported) Pravastatin Sodium (Pravastatin Sodium) 40 Mg Tablet, 40 MG PO QHS, (Reported) Prednisone (Prednisone) 10 Mg Tablet, 10 MG PO DAILY, (Reported) Salmeterol/Fluticasone (Advair 500-50 Diskus) 1 Each Blst.w.dev, 1 PUFF INH BID, (Reported) Scheduled PRN Albuterol Sulfate (Albuterol Sulfate Hfa) 8.5 Gm Hfa.aer.ad, 1 PUFF INH Q4H PRN for SOB/WHEEZING, (Reported) Ipratropium/Albuterol Sulfate (Iprat-Albut 0.5-3(2.5) mg/3 ml) 3 Ml Ampul.neb, 1 VIAL PO QID PRN for SOB/WHEEZING, (Reported) Tramadol HCl (Tramadol HCl) 50 Mg Tablet, 50 MG PO Q6H PRN for PAIN, (Reported) PAMELA CARLISLE MD May 17, 2019 18:32
[2019-05-17] MEDS ORDERED: ALBUTEROL SULFATE 2.5 MG/0.5 ML INH NEB SOLN NEB PRN (18:45)
[2019-05-17] MEDS: PIPERACILLIN/TAZOBACTAM SOD 3.375 GM in D5W MINI-BAG PLUS 50 ML IV SCH (19:03)
[2019-05-17] MEDS: HumaLOG INSULIN (NovoLOG) PER UNIT SC SCH (19:03)
--- NOTE | 2019-05-17 20:21 | HPEPDOC ---
General Date of Admission May 17, 2019 at 16:22 Date of Service: May 17, 2019 Chief Complaint The patient is a 83-year-old male admitted with a reason for visit of Left Leg And Foot Cellulitis. Source: Patient, Family, Old records Exam Limitations: No limitations Timing/Duration: Week(s) Severity: Severe History of Present Illness This is an 83-year-old male who has qwa-hijzsvi-jxjnppxul diabetes mellitus with neuropathy and vasculopathy. He has been having worsening ambulation function with frequent falls. He has been undergoing care by podiatry and wound care to his feet. He has had multiple debridements to foot lesions. He has had multiple vascularization procedures with stent placements. He is continued to have poor circulation to his feet. Most recently he has had to undergo left fifth toe amputation. The patient almost immediately had poor healing to the site. Patient was seen again by the surgeon and left below the knee amputation was suggested. Patient has come to [facility] for [facility] opinion. He is hopeful of further vascular intervention for limb preservation. He denies having any remarkable pain to the site. He denies any fever or chills. Blood cultures obtained at the outlying facility are negative, but wound culture is positive for MRSA. He was being treated with Vanco and Zosyn prior to transfer. Home Medications Scheduled Ascorbic Acid (Vitamin C) 500 Mg Tablet, 500 MG PO DAILY, (Reported) Aspirin (Aspir 81) 81 Mg Tablet.dr, 81 MG PO DAILY, (Reported) Cholecalciferol (Vitamin D3) (Vitamin D3) 400 Unit Tablet, 400 UNIT PO BID, (Reported) Clopidogrel Bisulfate (Clopidogrel) 75 Mg Tablet, 75 MG PO DAILY, (Reported) Gabapentin (Gabapentin) 100 Mg Capsule, 100 MG PO TID, (Reported) Glipizide (Glipizide ER) 5 Mg Tab.er.24, 5 MG PO DAILY, (Reported) Metformin HCl (Metformin HCl) 500 Mg Tablet, 1,000 MG PO BID, (Reported) Pantoprazole Sodium (Pantoprazole Sodium) 20 Mg Tablet.dr, 20 MG PO DAILY, (Reported) Pravastatin Sodium (Pravastatin Sodium) 40 Mg Tablet, 40 MG PO QHS, (Reported) Prednisone (Prednisone) 10 Mg Tablet, 10 MG PO DAILY, (Reported) Salmeterol/Fluticasone (Advair 500-50 Diskus) 1 Each Blst.w.dev, 1 PUFF INH BID, (Reported) Scheduled PRN Albuterol Sulfate (Albuterol Sulfate Hfa) 8.5 Gm Hfa.aer.ad, 1 PUFF INH Q4H PRN for SOB/WHEEZING, (Reported) Ipratropium/Albuterol Sulfate (Iprat-Albut 0.5-3(2.5) mg/3 ml) 3 Ml Ampul.neb, 1 VIAL PO QID PRN for SOB/WHEEZING, (Reported) Tramadol HCl (Tramadol HCl) 50 Mg Tablet, 50 MG PO Q6H PRN for PAIN, (Reported) Allergies Coded Allergies: No Known Allergies (Unverified , 03/11/19) Past Medical History Medical History Chronic hypoxic respiratory failure due to oxygen dependent COPD--baseline FiO2 is 3 LPM, cvi-udelzlm-sbztmerzr 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 Social History * Smoker: former Smoker (tobacco use history. Habit has been remote for at least 10 years) Alcohol: rarely Psychosocial History: No pertinent psych hx The patient is classified as retired A-FIB/CHADSVASC A-FIB History Current/History of A-Fib/PAF?: No Current PO Anticoag Therapy: No Review of Systems Other systems 10 system review is otherwise negative except as stated in the HPI. Physical Examination General Exam: Positive: Alert, Cooperative, No Acute Distress, Other (the patient does appear his stated age of 83.) Eye Exam: Positive: Conjunctiva & lids normal; Negative: PERRLA, EOMI, Sclera icteric, Ptosis, Other Eye Symptoms ENT Exam: Positive: Atraumatic, Mucous membr. moist/pink, Tongue Midline, Nares Patent Neck Exam: Positive: Supple; Negative: JVD, thyromegaly Chest Exam: Positive: Normal air movement, Wheezing (inspiratory and expiratory bilaterally with prolonged expiratory phase), Other (the patient has extremely coarse cough) Heart Exam: Positive: Rate Normal, Regular Rhythm, Normal S1, Normal S2; Negative: Murmurs, Rubs Abdomen Exam: Positive: Normal bowel sounds, Soft; Negative: Tenderness, Hepatospenomegaly Extremity Exam: Positive: Other (. Remarkably, the patient does not have remarkable lesions to the plantar surfaces of the feet.) Skin Exam: Positive: Lesion (with particular attention to his left lateral foot at the site of the amputation incision site has sutures but the incision is somewhat gapped. There has been bleeding and there is purulent exudate. Distally the site is tender to palpation) Neuro Exam: Positive: Normal Speech, Cranial Nerves 3-12 NL Psych Exam: Positive: Mood NL, Oriented x 3 Vital Signs Vital Signs Date Time Temp Pulse Resp B/P (MAP) Pulse Ox O2 Delivery O2 Flow Rate FiO2 05/17/19 16:24 98.2 85 18 168/57 (94) 94 Nasal Cannula 3.0 Laboratory Data Labs 24H Laboratory Tests 2 05/17/19 18:39: Bedside Glucose (Misc Panel) 203H 05/17/19 19:11: Other remarkable laboratory data include a white blood cell count of 8.5, hemoglobin 10.1 and platelets of 238. Metabolic panel essentially within normal limits; sodium is 141, potassium 3.6, BUN 10, creatinine 0.9, glucose 92. Glycated hemoglobin is 6.1. Lactic acid had been elevated up to 3, but is now 0.9. Echocardiogram Echocardiogram was obtained today, but report is not yet available. EKG, however, showed normal sinus rhythm, rate of 85 with no acute waveform changes consistent with ischemia, infarction or old cardiac event. Assessment/Plan 1. Vasculopathy. The patient has significant peripheral vascular disease contributory to poor healing of procedures to his feet. He currently has a poorly healing amputation site to his left fifth digit of his foot. Left below the knee amputation had been recommended. Patient wishes to attempt limb preservation; vascular surgery service has been consulted and will attempt intervention tomorrow. Patient has been consented for procedure and has also agreed to blood transfusion if needed. 2. Wound infection. The incision site to the left lateral foot at the site of the fifth toe amputation is purulent appearing. MRSA was isolated. We will continue treatment with vancomycin and Zosyn for now. 3. Rrk-ibsoeuf-pcdtuxyuq diabetes mellitus. Patient will be maintained on a compliant of consistent carbohydrate diet with sliding scale insulin for glucose control. We will restore his other medications once he is postop. 4. Chronic respiratory failure due to oxygen dependent COPD The patient does have significant chronic wheezing. Plans are to enhance pulmonary toilet with nebulization treatments perioperatively. The patient's greatest risk factor for surgical intervention is his pulmonary disease. This can be optimized with nebulization treatments. He does not otherwise have significant cardiac risk other than that associated with age and can proceed with surgery. Plan / VTE VTE Prophylaxis Ordered?: Yes (patient has heparin dosages for DVT prophylaxis, further postoperative antiplatelet or other therapy will be per vascular surgery service) Plan Diet: Make NPO (after 5:00 in the morning) Activity: Continue Current Therapy: PT (the patient will require physical therapy once cleared for ambulation. By the surgery service) Respiratory: Other Respiratory (maintain current oxygen use.) Diagnostics: Repeat Labs in AM Anticipated Discharge: Home With Services Advanced Directives: MOLST Form is available, Do Not Resuscitate (DNR), Do Not Intubate (DNI) (the patient brought in an advanced directive from [facility]. His wishes have been transferred to the [facility] MOLST form. He is DNR/DNI with no feeding tube.) PIERCE EPSTEIN MD May 17, 2019 20:21
[2019-05-17] MEDS: IPRATROPIUM 0.5MG/ALBUTEROL 2.5MG INH SOL UD 3ML (DUONEB)(J7620) NEB SCH (20:35)
[2019-05-17] MEDS: ADVAIR HFA 230/21MCG INHALER INH SCH (20:35)
[2019-05-17] MEDS: VITAMIN D (CHOLECALCIFEROL) 400 INTERNATIONAL UNITS TAB PO SCH (21:22)
[2019-05-17] MEDS: PRAVASTATIN 20 MG TAB PO SCH (21:22)
[2019-05-17] MEDS: VANCOMYCIN HCL 1,000 MG, VIAL MATE ADAPTER 1 EACH in D5W 250 ML IV SCH (21:22)
[2019-05-17] MEDS: HEPARIN SOD (PORCINE) 5000 UNITS/ML VIAL SC SCH (21:22)
[2019-05-17] MEDS: GABAPENTIN 100 MG CAP PO SCH (21:23)
[2019-05-17] MEDS: traMADol 50 MG TAB PO PRN (21:23)
[2019-05-17 22:00] VITALS: BP 147/65
--- NOTE | 2019-05-17 23:57 | PHACANCOPD ---
PHARMACY VANCOMYCIN DOSING Pt Demographics Demographics Patient Age:83 , Weight:84.100 , Gender: male Events Past 24 Hours Events Past 24 Hours: NO: Dialysis, Diuretic Therapy, Change in CrCl, Fever, Elevation in WBC, Pending Diagnostics, Pending Procedures, Other Vancomycin Vancomycin indication: FOOT INFECTION Vancomycin Target Ranges: 10-20 mcg/ml Vancomycin Load Y/N: No Load Dose Date Time Vancomycin Load Dose: Date: Time: Vancomycin Dose Date: 05/17/19. Current Vancomycin Dose: [1GM IV Q12H (21:00)] Intermittent Dosing?: No Labs Labs Laboratory Tests Test 05/17/19 19:11 Random Vancomycin Level 12.5 UG/ML Creatinine Clearance Date:05/17/19. Creatinine Clearance: [NA]. Assessment and Plan Maintaining Current Dose?: Yes Reason for dose change: No Dose Change Pharmacist Note Pharmacist Note Date: 05/17/19. Pharm.D. note: PATIENT IS A TRANSFER FROM [facility]; PATIENT WAS ADMITTED AFTER PHARMACY HOURS THEREFORE LABS WERE NOT AVAILABLE FROM THERE. WE WERE ABLE TO OBTAIN A NEAR PERFECT VANCO RANDOM LEVEL (t = 11HRS) which resulted in 12.5MCG/ML. WE WILL CONTINUE WITH VANCO 1GM IV Q12H (21:00) THIS EVENING PREVIOUSLY PRESCRIBED AT [facility]. A CMP/BMP ARE DUE IN THE MORNING [facility] May 17, 2019 23:57
[2019-05-18] MEDS: HumaLOG INSULIN (NovoLOG) PER UNIT SC SCH ×5 (00:23→23:59)
[2019-05-18] MEDS: PIPERACILLIN/TAZOBACTAM SOD 3.375 GM in D5W MINI-BAG PLUS 50 ML IV SCH ×5 (00:24→21:28)
[2019-05-18] MEDS: IPRATROPIUM 0.5MG/ALBUTEROL 2.5MG INH SOL UD 3ML (DUONEB)(J7620) NEB SCH ×4 (02:39→20:00)
[2019-05-18 06:00] VITALS: BP 120/56
[2019-05-18 07:06] LABS: HEMATOCRIT 33.6 % (42.0-52.0); HEMOGLOBIN 10.6 g/dl (13.5-17.5); MEAN CORPUSCULAR HGB CONC 31.5 g/dl (32.0-36.5); MEAN CORPUSCULAR VOLUME 92.1 fl (80.0-96.0); PLATELET COUNT, AUTOMATED 229 10^3/uL (150-450); RED BLOOD COUNT 3.65 10^6/uL (4.30-6.10); WHITE BLOOD COUNT 7.3 10^3/uL (4.0-10.0)
[2019-05-18] MEDS: HEPARIN SOD (PORCINE) 5000 UNITS/ML VIAL SC SCH ×2 (07:35→21:00)
[2019-05-18 07:37] LABS: BLOOD UREA NITROGEN 11 MG/DL (7-18); CALCIUM LEVEL 8.7 MG/DL (8.8-10.2); CARBON DIOXIDE LEVEL 29 MEQ/L (21-32); CHLORIDE LEVEL 105 MEQ/L (98-107); CREATININE FOR GFR 0.85 MG/DL (0.70-1.30); GLOMERULAR FILTRATION RATE > 60.0 (>35); GLUCOSE, FASTING 117 MG/DL (70-100); POTASSIUM SERUM 3.4 MEQ/L (3.5-5.1); SODIUM LEVEL 141 MEQ/L (136-145)
[2019-05-18] MEDS: ADVAIR HFA 230/21MCG INHALER INH SCH ×2 (07:45→20:35)
[2019-05-18] MEDS: VANCOMYCIN HCL 1,000 MG, VIAL MATE ADAPTER 1 EACH in D5W 250 ML IV SCH ×2 (08:41→21:36)
[2019-05-18] MEDS: ASCORBIC ACID 500 MG TAB PO SCH (08:42)
[2019-05-18] MEDS: traMADol 50 MG TAB PO PRN (08:42)
[2019-05-18] MEDS: VITAMIN D (CHOLECALCIFEROL) 400 INTERNATIONAL UNITS TAB PO SCH ×2 (08:42→21:35)
[2019-05-18] MEDS: GABAPENTIN 100 MG CAP PO SCH ×3 (08:42→21:36)
--- NOTE | 2019-05-18 09:12 | IRPN ---
[facility] IR Progress Note IR Progress Note DATE: May 18, 2019 FOLLOW-UP: 83-year-old male with bilateral PAD and worsening left lower ex tremity wound. I have previously worked on his RIGHT leg and established good SFA flow with 3 vessel runoff to the right foot. He failed to show up for clinic visit but will follow up with Dr. White for work on his left lower extremity. Thank you Allergies Coded Allergies: No Known Allergies (Unverified , 03/11/19) Current Medications Current Medications Medications (Trade) Dose Ordered Sig/Jerome Route PRN Reason Start Time Stop Time Status Last Admin Dose Admin Acetaminophen (Tylenol Tab) 650 mg Q6H PRN PO PAIN OR FEVER 05/17/19 18:30 Albuterol Sulfate (Proventil Neb) 2.5 mg Q4HP PRN NEB SOB/WHEEZING 05/17/19 18:45 Albuterol/ Ipratropium (Duoneb (Ipr 0.5mg/Alb 2.5mg)) 3 ml RQ6H NEB 05/17/19 20:00 05/18/19 02:39 Ascorbic Acid (Vitamin C) 500 mg DAILY PO 05/18/19 09:00 05/18/19 08:42 Dextrose (Dextrose 50%) 25 ml ASDIRECTED PRN IV SEE LABEL COMMENTS 05/17/19 18:30 Gabapentin (Neurontin) 100 mg TID PO 05/17/19 21:00 05/18/19 08:42 Glucagon (Glucagon) 1 mg ASDIRECTED PRN SC SEE LABEL COMMENTS 05/17/19 18:30 Glucose (Glucose) 16 GM ASDIRECTED PRN PO SEE LABEL COMMENTS 05/17/19 18:30 Heparin Sodium (Porcine) (Heparin) 5,000 units Q12H SC 05/17/19 21:00 05/17/19 21:22 Home Med (Med Rec Complete!) ASDIRECTED XX 05/17/19 18:15 05/17/19 18:10 DC Insulin Human Lispro (HumaLOG INSULIN) SEE PROTOCOL TABLE Q6H SC 05/17/19 18:00 05/18/19 05:56 Piperacillin Sod/ Tazobactam Sod 3.375 gm/Dextrose 50 ml @ 50 mls/hr Q6H IV 05/17/19 18:00 05/18/19 05:56 Pravastatin Sodium (Pravachol) 40 mg QHS PO 05/17/19 21:00 05/17/19 21:22 Salmeterol Xinafoate/ Fluticasone (Advair Hfa 230/ 21) 2 puff BID INH 05/17/19 21:00 05/17/19 20:35 Tramadol HCl (Ultram) 50 mg Q6HP PRN PO PAIN 05/17/19 18:45 05/18/19 08:42 Vancomycin HCl 1000 mg/IV Miscellaneous Supplies 1 each/ Dextrose 270 ml @ 270 mls/hr Q12H IV 05/17/19 21:00 05/18/19 08:41 Vitamin D (Vitamin D) 400 units BID PO 05/17/19 21:00 05/18/19 08:42 VS,Yordan, I+O VS, Yordan, I+O Laboratory Tests 05/18/19 06:10 Vital Signs Date Time Temp Pulse Resp B/P (MAP) Pulse Ox O2 Delivery O2 Flow Rate FiO2 05/18/19 08:42 18 Nasal Cannula 3.0 05/18/19 06:00 97.6 84 120/56 (77) 100 I&O- Last 24 Hours up to 6 AM 05/18/19 06:00 Intake Total 0 ml Output Total 1275 ml Balance -1275 ml DAVEY ELMORE MD May 18, 2019 09:12
[2019-05-18 09:48] LABS: INR 1.12; PROTHROMBIN TIME 14.1 SECONDS (11.8-14.0)
[2019-05-18] MEDS ORDERED: POTASSIUM CHLORIDE 10 MEQ SR TABLET PO ONE (12:15)
[2019-05-18] MEDS: D5W/0.9% SODIUM CHLORIDE 1,000 ML IV SCH ×2 (12:18→14:19)
[2019-05-18] MEDS: ACETAMINOPHEN TAB 650MG DOSE (2X325MG) PO PRN (12:20)
[2019-05-18 14:00] VITALS: BP 141/77
[2019-05-18] MEDS ORDERED: MIDAZOLAM INJ 2 MG/2 ML VIAL (J2250) As Ordered ONE (18:04)
[2019-05-18] MEDS ORDERED: fentaNYL 100 MCG/2 ML INJECTION (J3010) As Ordered ONE (18:04)
[2019-05-18] MEDS ORDERED: ISOVUE-300 61% 50ML VIAL (Q9967) As Ordered ONE ×2 (18:06→19:31)
[2019-05-18] MEDS ORDERED: LIDOCAINE 1% MDV 20ML VIAL As Ordered ONE (18:06)
[2019-05-18] MEDS ORDERED: HEPARIN 1,000 UNITS/ML 10ML VIAL (FOR RADIOLOGY& DIALYSIS ONLY) As Ordered ONE (18:10)
--- NOTE | 2019-05-18 18:50 | ROOPDOC ---
[facility] Report Of Operation Report of Operation DATE OF PROCEDURE: 05/18/19 PREPROCEDURE DIAGNOSES: Need for IV access POSTPROCEDURE DIAGNOSES: Same PROCEDURE: 1. Ultrasound guided access right brachial vein 2. 39 cm dual lumen PICC line placement right brachial vein SURGEON: Pamela White MD ANESTHESIA: Local anesthesia 3 mL lidocaine. INDICATION FOR PROCEDURE: Mr. Lino is a very pleasant 83-year-old gentleman who requires IV access for medication administration lab draws and IV fluids. Risks benefits and alternatives to PICC line placement were explained to the patient is agreeable to proceed. Informed consent was obtained. INTERPRETATION: 1. PICC line is in good position through the right brachial vein into the c entral system with the tip at the SVC right atrial junction. It is okay to use the PICC line. REPORT OF OPERATION: The patient was brought to the [place] graphic suite in stable condition. His right upper extremity was prepped and draped in a sterile fashion. A timeout was performed. Extensive amount of time was spent looking for cephalic vein or basilic vein, and the basilic vein was identified but it was very small and scarred. I do not think it would work well as access for PICC line placement. The brachial vein was large and widely patent. Small amount of local anesthesia was administered to the skin and subcutaneous tissue and a microneedle was used to access the vein and single stick. A wire was passed through this access into the central system under fluoroscopic guidance. The microcatheter was removed and a peel-away sheath was placed over the wire. We estimated 46 cm per the PICC line length, but upon placement it appeared to be too long, therefore we shortened the catheter to 39 cm length and passed that over the wire into the central system without impedance. Following this, the wire was removed and the peel-away sheath was removed. Both ports on the PICC line cory back and flushed easily. Appropriate replaced and heparin lock was placed. The catheter was secured to the skin with a StatLock after prepping the skin with the skin prep. The patient tolerated this well with no complications. ESTIMATED BLOOD LOSS: Approximately 2 mL. COMPLICATIONS: None. PLAN: Is okay to use the PICC line at this time for medication administration, IV fluids, and lab draws as needed. PAMELA WHITE MD May 18, 2019 18:50
--- NOTE | 2019-05-18 19:08 | IPNPDOC ---
Text Note Date of Service The patient was seen on 05/18/19. NOTE Subjective: No any acute events overnight. Patient is anxious in the morning about upcoming procedure Objective: GENERAL APPEARANCE: NAD HEENT: Normocephalic, vision grossly intact, TMI RESPIRATORY: Diminished lung sounds bilaterally CARDIOVASCULAR: Regular rate and rhythm ABDOMEN: Soft nontender EXTREMITIES: No cyanosis, no leg swelling NEUROLOGICAL: Nonfocal Assessment and plan Patient is 83 years old male with past medical history of peripheral vascular diseases, hyperlipidemia, COPD, neuropathy presented hospital for left leg vessels evaluation and left foot infected ulcer treatment PVD The patient has significant peripheral vascular disease contributory to poor healing of procedures to his feet. He currently has a poorly healing amputation site to his left fifth digit of his foot. Vascular surgeon will proceed with arteriogram today Wound infection. The incision site to the left lateral foot at the site of the fifth toe amputation is purulent appearing. MRSA was isolated. We will continue treatment with vancomycin and Zosyn for now. Blood Cx and wound Cx Hdu-dtmhtiv-pbnpftzrp diabetes mellitus. Insulin sliding scale Diabetes diet Chronic respiratory failure due to oxygen dependent COPD Continue inhalers VS,Fishbone, I+O VS, Fishbone, I+O Laboratory Tests 05/18/19 06:10 Vital Signs Date Time Temp Pulse Resp B/P (MAP) Pulse Ox O2 Delivery O2 Flow Rate FiO2 05/18/19 18:40 64 18 99 Nasal Cannula 3 05/18/19 17:07 96.8 05/18/19 14:00 141/77 (98) I&O- Last 24 Hours up to 6 AM 05/18/19 05:59 Intake Total 0 ml Output Total 875 ml Balance -875 ml EMELY WALKER DO May 18, 2019 19:08
--- NOTE | 2019-05-18 20:36 | ROOPDOC ---
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 Ultrasound-guided access right common femoral artery 2. Left lower extremity arteriogram with runoff, and selection of common femoral artery, popliteal artery 3. Angioplasty left posterior tibial artery and peroneal artery with 2.5 x 220 Benja balloon 4. Attempt to cross chronic total occlusion left anterior tibial artery, aborted 5. Completion arteriograms 6. Mynx closure right common femoral artery SURGEON: Pamela White MD ANESTHESIA: Local anesthesia 7 mL lidocaine. Moderate intravenous conscious sedation was supervised by Dr. White. The patient was independently monitored by registered nurse assigned to the Department of radiology using automated blood pressure, EKG, pulse oximetry. A detailed sedation record is probably [facility] information system. The following is the brief sedation record: Start time 18:55, stop time 20:13, Versed 1.5 mg IV, fentanyl 75 g IV. INDICATION FOR PROCEDURE: This is a very pleasant 83-year-old patient with an extensive history of peripheral vascular disease and interventions, with SFA revascularization on the right and left with other interventionalists, but no tibial revascularizations up to this point. The patient has limited tibial outflow and the large lateral left foot wound with cellulitis. We discussed the risks benefits and alternatives to a left lower extremity arteriogram and possible angioplasty possible stent. The patient is agreeable to proceed. Informed consent was obtained. INTERPRETATION: 1. The left lower extremity common femoral artery has good flow into the profunda and the SFA on the SFA stents are patent. Popliteal artery is also widely patent. Below the knee, the anterior tibial artery occludes at its origin and it does not appear to reconstitute. The posterior tibial and peroneal arteries are very thready with intermittent near occlusions and no in-line flow to the foot but extensive ankle collateral circulation fills the plantar vessels. 2. Angioplasty of the peroneal and posterior tibial artery after a challenging crossing through stenoses and occlusions in both vessels to the ankle was successful. There was no extravasation or dissection or embolization on final imaging. REPORT OF OPERATION: The patient was brought to the angiographic suite in stable condition and placed supine on the fluoroscopic table. His bilateral groins were prepped and draped in a sterile fashion. A timeout was performed. Local anesthesia was administered to the skin and subcutaneous tissue over the right common femoral artery and a microneedle was used to access is artery under fluoroscopic guidance. The wire was passed through this access and needle was removed and a micro-sheath was placed under fluoroscopic guidance. Glidewire was advanced into the aorta under fluoroscopy and the sheath was exchanged for 6 Argentine sheath and flushed with saline. We then went up and over the bifurcation with an Omni flushed catheter and the Glidewire and selected the common femoral artery. An arteriogram of the profunda common femoral and SFA was performed please see interpretation above. We then navigated the catheter over the wire through the SFA and selected the popliteal artery. Distal arteriograms were performed. Please see interpretation above. Following this we advanced the Glidewire into the popliteal artery and exchange the sheath for a 90 cm destination 6 Argentine sheath and flushed the sheath was saline. We then navigated the Glidewire into the posterior tibial artery and placed a glide cath over the wire. We exchange the wire through the guide cath for an O when 8 wire and carefully navigated this through the posterior tibial artery. It was difficult to cross, and we obtain an O18 crossing catheter and we were able to cross all the way to the ankle. We attempted to cross across the ankle into the foot, but we were unsuccessful. A small amount of extravasation was noted when we check to see if we were in the true lumen and this resolved on repeat arteriogram. No active extravasation was noted. We tried a couple more times to cross into the salt river vessel but were not successful. We angioplasty to the length of the posterior tibial artery into the top but he'll artery into inflations proximally and distally for 3 minutes each. Following this, there is good in-line flow to the ankle. The outflow is through collaterals at the ankle to the foot and not in-line flow across to the plantar vessel. We then selected the peroneal artery and utilize the V18 wire and the 2.5 x 220 Benja balloon to cross through to the distal ankle. Once we confirmed earlier in the true lumen we angioplasty for three-minute inflations across the length of the vessel and the popliteal artery. Following this, we had to vessel and line flow to the ankle and distal flow to the foot through an extensive network of collaterals. We then spent about 20 minutes trying to cross into the anterior tibial artery. There was a tiny 1 mm proximal aspect that I believe was the origin, and we were able to cross about 2 cm distal to that but then we could not go any further. We simply ended up in collaterals. This was then aborted. Completion arteriogram showed rapid flow through the SFA popliteal and tibial vessels without dissection, extravasation, or embolization. We exchanged the sheath over the Glidewire for a short 6 Argentine sheath into play to mynx closure device with good hemostasis. Pressure was held for 10 minutes and the patient was taken recovery in stable condition. He tolerated the procedure well without complication. CONTRAST: 54 mL Isovue ESTIMATED BLOOD LOSS: Approximately 4 mL. COMPLICATIONS: None. PLAN: The patient will be on bed rest overnight and then can resume activity as tolerated with assistive tomorrow. Monitor the right groin for hematoma. Continue local wound care to left foot. We are hopeful that the additional blood flow through the tibials will help with healing, but the patient has severe distal disease and we were not able to open the anterior tibial artery. We were able to open 2 of the 3 tibial vessels however. PAMELA WHITE MD May 18, 2019 20:25
[2019-05-18 21:15] VITALS: BP 145/73
[2019-05-18] MEDS: PRAVASTATIN 20 MG TAB PO SCH (21:36)
[2019-05-18 21:45] VITALS: BP 147/72
[2019-05-18 22:45] VITALS: BP 167/70
[2019-05-19] MEDS: D5W/0.9% SODIUM CHLORIDE 1,000 ML IV SCH (00:30)
[2019-05-19] MEDS: IPRATROPIUM 0.5MG/ALBUTEROL 2.5MG INH SOL UD 3ML (DUONEB)(J7620) NEB SCH ×4 (02:00→18:07)
[2019-05-19 02:45] VITALS: BP 139/64
[2019-05-19] MEDS: HumaLOG INSULIN (NovoLOG) PER UNIT SC SCH ×4 (06:00→20:57)
[2019-05-19] MEDS: PIPERACILLIN/TAZOBACTAM SOD 3.375 GM in D5W MINI-BAG PLUS 50 ML IV SCH ×5 (06:16→17:43)
[2019-05-19] MEDS: traMADol 50 MG TAB PO PRN ×3 (06:42→20:30)
[2019-05-19] MEDS: SODIUM CHLORIDE 0.9% INJ 10 ML SYR IV SCH ×2 (06:42→17:43)
[2019-05-19 06:45] VITALS: BP 143/64
[2019-05-19] MEDS: ADVAIR HFA 230/21MCG INHALER INH SCH ×2 (07:30→18:04)
[2019-05-19 08:27] LABS: HEMATOCRIT 36.9 % (42.0-52.0); HEMOGLOBIN 11.6 g/dl (13.5-17.5); MEAN CORPUSCULAR HEMOGLOBIN 28.6 pg (27.0-33.0); MEAN CORPUSCULAR HGB CONC 31.4 g/dl (32.0-36.5); MEAN CORPUSCULAR VOLUME 91.1 fl (80.0-96.0); PLATELET COUNT, AUTOMATED 249 10^3/uL (150-450); RED BLOOD COUNT 4.05 10^6/uL (4.30-6.10); WHITE BLOOD COUNT 10.6 10^3/uL (4.0-10.0)
[2019-05-19 08:47] LABS: BLOOD UREA NITROGEN 7 MG/DL (7-18); CARBON DIOXIDE LEVEL 29 MEQ/L (21-32); CHLORIDE LEVEL 104 MEQ/L (98-107); CREATININE FOR GFR 0.88 MG/DL (0.70-1.30); GLOMERULAR FILTRATION RATE > 60.0 (>35); GLUCOSE, FASTING 171 MG/DL (70-100); POTASSIUM SERUM 3.9 MEQ/L (3.5-5.1); SODIUM LEVEL 138 MEQ/L (136-145); VANCOMYCIN LEVEL TROUGH 18.1 UG/ML (10.0-20.0)
[2019-05-19] MEDS: ASCORBIC ACID 500 MG TAB PO SCH (09:17)
[2019-05-19] MEDS: GABAPENTIN 100 MG CAP PO SCH ×3 (09:17→20:29)
[2019-05-19] MEDS: VITAMIN D (CHOLECALCIFEROL) 400 INTERNATIONAL UNITS TAB PO SCH ×2 (09:40→20:29)
[2019-05-19] MEDS: VANCOMYCIN HCL 1,000 MG, VIAL MATE ADAPTER 1 EACH in D5W 250 ML IV SCH (09:40)
[2019-05-19] MEDS: HEPARIN SOD (PORCINE) 5000 UNITS/ML VIAL SC SCH ×2 (09:40→20:29)
[2019-05-19] MEDS ORDERED: GLUCOSE 4 GM CHEW TABLET PO PRN (09:45)
[2019-05-19] MEDS ORDERED: DEXTROSE 50% 50 ML SYRINGE IV PRN (09:45)
[2019-05-19] MEDS ORDERED: GLUCAGON FOR INJ 1 MG VIAL (J1610) SC PRN (09:45)
[2019-05-19 10:00] VITALS: BP 145/67
--- NOTE | 2019-05-19 10:55 | PHACANCOPD ---
PHARMACY VANCOMYCIN DOSING Pt Demographics Demographics Patient Age:83 , Weight:84.100 , Gender: male Events Past 24 Hours Events Past 24 Hours: YES: Elevation in WBC; NO: Dialysis, Diuretic Therapy, Change in CrCl, Fever, Pending Diagnostics, Pending Procedures, Other Vancomycin Vancomycin indication: FOOT INFECTION Vancomycin Target Ranges: 10-20 mcg/ml Vancomycin Load Y/N: No Load Dose Date Time Vancomycin Load Dose: Date: Time: Vancomycin Dose Date: 05/17/19. Current Vancomycin Dose: [1GM IV Q18H] Intermittent Dosing?: No Labs Labs Vital Signs Label Value Date Time Patient Temperature 99.0 degrees F 05/19/19 0645 Temperature Source Temporal 05/19/19 0645 Patient Temperature 98.1 degrees F 05/19/19 0245 Temperature Source Temporal 05/19/19 0245 Item Value Date Time White Blood Count 10.6 10^3/uL H 05/19/19 0808 White Blood Count 7.3 10^3/uL 05/18/19 0610 Creatinine 0.85 MG/DL 05/18/19 0610 Creatinine 0.88 MG/DL 05/19/19 0808 Glomerular Filtration Rate > 60.0 05/19/19 0808 Glomerular Filtration Rate > 60.0 05/18/19 0610 Micro Microbiology 05/18/19 Blood Culture, Received Pending 05/18/19 Wound Culture, Received Pending Creatinine Clearance Date:05/17/19. Creatinine Clearance: [71 mL/min]. Assessment and Plan Maintaining Current Dose?: No Reason for dose change: Trough too high Pharmacist Note Pharmacist Note Date: 05/19/19: A trough from today returned at 18.1 mcg/mL. Patient has accumulated vancomycin, so the dose was decreased to 1 gram every 18 hours. we will continue to monitor and make adjustments as necessary. Date: 05/17/19. Pharm.D. note: PATIENT IS A TRANSFER FROM [facility]; PATIENT WAS ADMITTED AFTER PHARMACY HOURS THEREFORE LABS WERE NOT AVAILABLE FROM THERE. WE WERE ABLE TO OBTAIN A NEAR PERFECT VANCO RANDOM LEVEL (t = 11HRS) which resulted in 12.5MCG/ML. WE WILL CONTINUE WITH VANCO 1GM IV Q12H (21:00) THIS EVENING PREVIOUSLY PRESCRIBED AT [facility]. A CMP/BMP ARE DUE IN THE MORNING [facility] May 19, 2019 10:55
--- NOTE | 2019-05-19 11:22 | IPNPDOC ---
Text Note Date of Service The patient was seen on 05/19/19. NOTE Subjective: Patient was very concerned about result of his procedure. Patient stated that he has tenderness around amputation site He denies fever, chills, nausea, vomiting, shortness of breath, palpitations, diarrhea or dysuria Objective: GENERAL APPEARANCE: NAD HEENT: Normocephalic, vision grossly intact, TMI RESPIRATORY: Diminished lung sounds bilaterally CARDIOVASCULAR: Regular rate and rhythm ABDOMEN: Soft nontender EXTREMITIES: no leg swelling, there is second stage ulcer of left lateral foot at the site of the fifth toe amputation with some purulent appearing NEUROLOGICAL: Nonfocal Assessment and plan Patient is 83 years old male with past medical history of peripheral vascular diseases, hyperlipidemia, COPD, neuropathy presented hospital for left leg vessels evaluation and left foot infected ulcer treatment PVD The patient has significant peripheral vascular disease contributory to poor healing of procedures to his feet. He currently has a poorly healing amputation site to his left fifth digit of his foot. On 05/18/19 arteriogram and angioplasty have been done. The left lower extremity common femoral artery has good flow into the profunda and the SFA on the SFA stents are patent. Popliteal artery is also widely patent. Below the knee, the anterior tibial artery occludes at its origin and it does not appear to reconstitute. The posterior tibial and peroneal arteries are very thready with intermittent near occlusions and no in-line flow to the foot but extensive ankle collateral circulation fills the plantar vessels. Angioplasty of the peroneal and posterior tibial artery after a challenging crossing through stenoses and occlusions in both vessels to the ankle was successful There is hope that the additional blood flow through the tibials will help with healing Wound infection. The incision site to the left lateral foot at the site of the fifth toe amputation is purulent appearing. MRSA was isolated. We will continue treatment with vancomycin and Zosyn for now. Blood Cx and wound Cx pending I will repeat MRI of left foot due to increased tenderness around site of amputation I will check sedimentation rate and CRP Appreciate/agree with educator senior clinical consult and ID [id number] diabetes mellitus. Insulin sliding scale Diabetes diet Chronic respiratory failure due to oxygen dependent COPD Continue inhalers VS,Fishbone, I+O VS, Fishbone, I+O Laboratory Tests 05/19/19 08:08 Vital Signs Date Time Temp Pulse Resp B/P (MAP) Pulse Ox O2 Delivery O2 Flow Rate FiO2 05/19/19 10:00 98.3 83 16 145/67 (93) 97 Nasal Cannula 3.0 I&O- Last 24 Hours up to 6 AM 05/19/19 06:00 Intake Total 270 ml Output Total 1880 ml Balance -1610 ml EMELY WALKER DO May 19, 2019 11:22
[2019-05-19 11:48] LABS: C REACTIVE PROTEIN QUANTITATIV 3.48 MG/DL (0.00-0.30)
--- NOTE | 2019-05-19 12:16 | IPNPDOC ---
Text Note Date of Service The patient was seen on 05/19/19. NOTE Vascular surgery. Dr. White. Mr. Lino is a very pleasant 83-year-old gentleman who was admitted with the left lateral foot wound which had gotten progressively worse and was concerning for infection. He was admitted for workup of this as well as vascular evaluation. The patient is status post left lower extremity arteriogram as per Dr. White 05/18/19, the patient is noted to have severe distal disease and unable to open the anterior tibial artery. Successful angioplasty to left PRODUCT/INDUSTRY CONSULTANT and peroneal. The patient's right groin access site is examined with no hematoma. Dry dressing is reapplied. The left lower extremity is warm to touch. Good capillary refill. Monophasic pulses DP/PT. Plan is to advance activity with assistance. Restart Plavix 75 mg daily and aspirin 81 mg daily. Recommend podiatry consultation for left lateral foot wound evaluation. Wound c are as per podiatry. Continue to follow. VS,Yarielbone, I+O VS, Fishbone, I+O Laboratory Tests 05/19/19 08:08 Vital Signs Date Time Temp Pulse Resp B/P (MAP) Pulse Ox O2 Delivery O2 Flow Rate FiO2 05/19/19 10:00 98.3 83 16 145/67 (93) 97 Nasal Cannula 3.0 I&O- Last 24 Hours up to 6 AM 05/19/19 05:59 Intake Total 270 ml Output Total 2280 ml Balance -2009 ml Mary Asif May 19, 2019 12:16
[2019-05-19] MEDS: ASPIRIN 81 MG ENTERIC TAB PO SCH (12:51)
[2019-05-19] MEDS: CLOPIDOGREL 75 MG TAB PO SCH (12:51)
[2019-05-19] MEDS: SODIUM CHLORIDE 0.9% INJ 10 ML SYR IV PRN (12:52)
--- NOTE | 2019-05-19 13:15 | CR ---
DATE OF CONSULTATION: 05/19/2019 REASON FOR CONSULTATION: Foot ulceration. Francois Lino is a pleasant 83-year-old male who was admitted to the hospital due to worsening condition of his left foot. He has long-standing peripheral vascular disease and ulceration to this foot. He had a recent 5th toe amputation in [facility] due to gangrene of the left 5th toe. After surgery, he was noted to have some further dysvascular changes to the surgical site and was admitted to the hospital for further vascular workup. He had angioplasty performed yesterday by Dr. White and was able to open up the left BREAST BUFFER and peroneal of the anterior tibial artery was unable to be opened. He had previously been seen by Dr. Gann as an outpatient at the wound care center. PAST MEDICAL HISTORY: Significant for: 1. Chronic obstructive pulmonary disease (COPD). 2. Diabetes with peripheral vascular disease and neuropathy. 3. Gastroesophageal reflux disease (GERD). 4. History of methicillin resistant Staphylococcus aureus (MRSA). PAST SURGICAL HISTORY: 1. Pilonidal cyst excision. 2. Cholecystectomy. 3. Cataracts. 4. Multiple lower extremity angioplasty and left 5th toe amputation. FAMILY HISTORY: Noncontributory. SOCIAL HISTORY: Former smoker. Denies current alcohol use. LABORATORIES: Reviewed. White blood cell count on admission was 7.3. C-reactive protein 3.48 and ESR is pending. IMAGING: MRI has been ordered and has not yet been performed. PHYSICAL EXAMINATION: Lower extremities: Right foot without ulceration. Left foot, pedal pulses are nonpalpable. There is a 5th toe amputation. There are some stitches on the lateral foot, which have dehisced with some slight gangrenous changes at the distal and most proximal aspect. There is some fibrous tissue within the incision margin. No purulence or malodor is noted. Gross appearance of the foot is viable without significant dysvascular cyanosis noted outside the wound itself. ASSESSMENT: 83-year-old diabetic male with peripheral vascular disease, status post left 5th toe amputation with wound dehiscence. PLAN: Continue current wound care. MRI has been ordered to evaluate for osteomyelitis. I suspect that the wound issues are more related to the vascular condition rather than infection, but it would be good to rule out infection given the critical nature of this foot. At this time, there is viability to his foot and urgent amputation does not appear necessary. It is unclear if he will need any further vascular interventions. He may be a good candidate for hyperbaric oxygen, this had been discussed with Dr. Gann before and may be worth revisiting depending on the nature and progress of the wound itself, as the patient, as he states, would like to minimize chances of amputation. Will monitor improvement from angioplasty for now. TORY
[2019-05-19 14:00] VITALS: BP 135/63
[2019-05-19 14:34] LABS: ERYTHROCYTE SEDIMENTATION RATE 67 mm/hr (0-20)
[2019-05-19] MEDS ORDERED: PROHANCE 279.3MG/ML 15ML VIAL (A9576) As Ordered ONE (16:15)
[2019-05-19 18:00] VITALS: BP 127/60
--- NOTE | 2019-05-19 19:44 | REP ---
MRI left foot without and with intravenous gadolinium: History: Osteomyelitis. No comparison imaging. Gadolinium enhancement dose: 15 ml of intravenous ProHance. Technique: Axial coronal and sagittal imaging planes were utilized. Motion artifact as the is encountered. The patient had difficulty remaining motionless. MRI findings: The patient is status post amputation of the 5th digital ray at the mid metatarsal level. There is mild T2 hyperintensity in the distal diaphysis medullary canal of the amputated fifth metatarsal but there is no low T1 signal intensity. There is not felt to be evidence of osteomyelitis. There is adjacent soft tissue swelling and irregularity and adjacent dressing is noted indicating a soft tissue wound. Cortical and medullary bone signal intensity is normal and the other metatarsals and in the remaining phalanges. There appears to be evidence of a draining sinus extending to the amputated end of the fifth metatarsal. No definite abscess cavity is seen. Impression: Status post transmetatarsal amputation with soft tissue sinus tract from the bony amputation stump to the overlying lateral skin. No evidence of abnormal T1 signal intensity in the remaining fifth metatarsal to suggest ongoing osteomyelitis. There is some enhancing marrow edema. Electronically Signed by Randy Hunter MD 05/19/2019 08:06 P
[2019-05-19] MEDS: PRAVASTATIN 20 MG TAB PO SCH (20:29)
[2019-05-19 22:00] VITALS: BP 136/62
[2019-05-20] MEDS: PIPERACILLIN/TAZOBACTAM SOD 3.375 GM in D5W MINI-BAG PLUS 50 ML IV SCH ×3 (00:07→12:27)
[2019-05-20 02:00] VITALS: BP 130/56
[2019-05-20] MEDS: IPRATROPIUM 0.5MG/ALBUTEROL 2.5MG INH SOL UD 3ML (DUONEB)(J7620) NEB SCH ×4 (02:00→20:00)
[2019-05-20] MEDS: VANCOMYCIN HCL 1,000 MG, VIAL MATE ADAPTER 1 EACH in D5W 250 ML IV SCH ×2 (03:00→20:49)
[2019-05-20 06:00] VITALS: BP 129/57
[2019-05-20] MEDS: SODIUM CHLORIDE 0.9% INJ 10 ML SYR IV SCH ×2 (06:14→17:38)
[2019-05-20 06:22] LABS: HEMATOCRIT 32.6 % (42.0-52.0); HEMOGLOBIN 10.2 g/dl (13.5-17.5); MEAN CORPUSCULAR HEMOGLOBIN 28.6 pg (27.0-33.0); MEAN CORPUSCULAR HGB CONC 31.3 g/dl (32.0-36.5); MEAN CORPUSCULAR VOLUME 91.3 fl (80.0-96.0); PLATELET COUNT, AUTOMATED 228 10^3/uL (150-450); RED BLOOD COUNT 3.57 10^6/uL (4.30-6.10); WHITE BLOOD COUNT 7.3 10^3/uL (4.0-10.0)
[2019-05-20 06:40] LABS: BLOOD UREA NITROGEN 12 MG/DL (7-18); CALCIUM LEVEL 8.6 MG/DL (8.8-10.2); CARBON DIOXIDE LEVEL 27 MEQ/L (21-32); CHLORIDE LEVEL 104 MEQ/L (98-107); CREATININE FOR GFR 0.97 MG/DL (0.70-1.30); GLOMERULAR FILTRATION RATE > 60.0 (>35); GLUCOSE, FASTING 143 MG/DL (70-100); POTASSIUM SERUM 3.6 MEQ/L (3.5-5.1); SODIUM LEVEL 139 MEQ/L (136-145)
[2019-05-20] MEDS: ADVAIR HFA 230/21MCG INHALER INH SCH ×2 (07:25→20:23)
[2019-05-20] MEDS: HEPARIN SOD (PORCINE) 5000 UNITS/ML VIAL SC SCH ×2 (08:04→20:36)
[2019-05-20] MEDS: HumaLOG INSULIN (NovoLOG) PER UNIT SC SCH ×4 (08:04→20:49)
[2019-05-20] MEDS: VITAMIN D (CHOLECALCIFEROL) 400 INTERNATIONAL UNITS TAB PO SCH ×2 (08:05→20:36)
[2019-05-20] MEDS: ASPIRIN 81 MG ENTERIC TAB PO SCH (08:05)
[2019-05-20] MEDS: ASCORBIC ACID 500 MG TAB PO SCH (08:05)
[2019-05-20] MEDS: traMADol 50 MG TAB PO PRN ×3 (08:05→20:37)
[2019-05-20] MEDS: GABAPENTIN 100 MG CAP PO SCH ×3 (08:05→20:36)
[2019-05-20] MEDS: CLOPIDOGREL 75 MG TAB PO SCH (08:05)
[2019-05-20 10:00] VITALS: BP 133/60
--- NOTE | 2019-05-20 10:28 | IPNPDOC ---
Text Note Date of Service The patient was seen on 05/20/19. NOTE Vascular surgery. Dr. White. Mr. Lino is a very pleasant 83-year-old gentleman who was admitted with the left lateral foot wound which had gotten progressively worse and was concerning for infection. He was admitted for workup of this as well as vascular evaluation. The patient is status post left lower extremity arteriogram as per Dr. White 05/18/19, the patient is noted to have severe distal disease and unable to open the anterior tibial artery. Successful angioplasty to left INTEGRATION DIRECTOR and peroneal. The left lower extremity is warm to touch. Good capillary refill. Monophasic pulses DP/PT. The left lateral foot wound is clean, foam dressing is reapplied. Continue Plavix 75 mg daily and aspirin 81 mg daily. Wound care as per podiatry. Continue to follow. VS,Fishbone, I+O VS, Fishbone, I+O Laboratory Tests 05/20/19 05:58 Vital Signs Date Time Temp Pulse Resp B/P (MAP) Pulse Ox O2 Delivery O2 Flow Rate FiO2 05/20/19 08:35 18 Nasal Cannula 2.0 05/20/19 06:00 98.4 71 129/57 (85) 98 I&O- Last 24 Hours up to 6 AM 05/20/19 06:00 Intake Total 1910 ml Output Total 500 ml Balance 1410 ml Mary Asif May 20, 2019 10:28
[2019-05-20 14:00] VITALS: BP 110/82
--- NOTE | 2019-05-20 14:01 | IPNPDOC ---
Text Note Date of Service The patient was seen on 05/20/19. NOTE Subjective: No any acute events overnight, patient continues to complain on the left foot pain 3 out of 10. Patient denies fever, chills, nausea, vomiting, shortness of breath, diarrhea or dysuria Objective: GENERAL APPEARANCE: NAD HEENT: Normocephalic, vision grossly intact, TMI RESPIRATORY: Diminished lung sounds bilaterally CARDIOVASCULAR: Regular rate and rhythm ABDOMEN: Soft nontender EXTREMITIES: no leg swelling, there is second stage ulcer of left lateral foot at the site of the fifth toe amputation, looks clean today NEUROLOGICAL: Nonfocal Assessment and plan Patient is 83 years old male with past medical history of peripheral vascular diseases, hyperlipidemia, COPD, neuropathy presented hospital for left leg vessels evaluation and left foot infected ulcer treatment PVD The patient has significant peripheral vascular disease contributory to poor healing of procedures to his feet. He currently has a poorly healing amputation site to his left fifth digit of his foot. On 05/18/19 arteriogram and angioplasty have been done. The left lower extremity common femoral artery has good flow into the profunda and the SFA on the SFA stents are patent. Popliteal artery is also widely patent. Below the knee, the anterior tibial artery occludes at its origin and it does not appear to reconstitute. The posterior tibial and peroneal arteries are very thready with intermittent near occlusions and no in-line flow to the foot but extensive ankle collateral circulation fills the plantar vessels. Angioplasty of the peroneal and posterior tibial artery after a challenging crossing through stenoses and occlusions in both vessels to the ankle was successful There is hope that the additional blood flow through the tibials will help with healing Wound infection. The incision site to the left lateral foot at the site of the fifth toe amputation is purulent appearing. MRSA was isolated. We will continue treatment with vancomycin and Zosyn for now. On 05/18/19 Blood Cx negative and wound Cx shows staph aureus, however the wound looks clean today MRI of left foot negative for osteomyelitis Appreciate/agree with ID consult Wound care as per podiatry [id number] diabetes mellitus. Insulin sliding scale Diabetes diet Chronic respiratory failure due to oxygen dependent COPD Continue inhalers VS,Fishbone, I+O VS, Fishbone, I+O Laboratory Tests 05/20/19 05:58 Vital Signs Date Time Temp Pulse Resp B/P (MAP) Pulse Ox O2 Delivery O2 Flow Rate FiO2 05/20/19 10:00 98.0 80 18 133/60 (84) 97 Nasal Cannula 3.0 I&O- Last 24 Hours up to 6 AM 05/20/19 06:00 Intake Total 1910 ml Output Total 500 ml Balance 1410 ml EMELY WALKER DO May 20, 2019 14:01
--- NOTE | 2019-05-20 17:29 | CR ---
DATE: 05/20/2019 Asked to consult by hospitalists for evaluation of osteomyelitis of the left foot and cellulitis with peripheral vascular disease. HISTORY OF PRESENT ILLNESS: Mr. Lino is an 83-year-old gentleman with non-insulin dependent diabetes, with diabetic neuropathy and vasculopathy. The patient was hospitalized at [facility] for 21 days last month and was treated with IV antibiotics. He was home for a couple of days when he was readmitted with worsening infection. At that point, a surgeon in [facility] told him that he needed a below-knee amputation. The patient refused and, therefore, asked for a second opinion at [facility]. His wound cultures from [facility] were positive for methicillin-resistant Staphylococcus aureus (MRSA). Blood cultures were negative. The patient denied having any fever or chills. No nausea, vomiting or diarrhea. No abdominal pain. The patient feels better since he has been here. He was seen in consultation by Dr. Ramos for followup on fifth toe amputation. He had angioplasty performed by Dr. White and had a left posterior tibial artery (BREAD PAN GREASER) and peroneal artery angioplasty. PAST MEDICAL HISTORY: Significant for chronic obstructive pulmonary disease (COPD), oxygen and steroid dependent. He is chronically on 3 liters nasal cannula, Non-insulin dependent diabetes with neuropathy, peripheral vascular disease, dyslipidemia, gastroesophageal reflux disease, chronic constipation, MRSA infection of the left foot, status post amputation, debility with frequent falls. SURGICAL HISTORY: Pilonidal cyst excision, cholecystectomy, cataract surgery, incision and drainage, and amputation of the left fifth toe, angioplasty. SOCIAL HISTORY: He lives alone. He has had frequent falls. He quit smoking over 10 years ago. He drinks socially. ALLERGIES: No known drug allergies. MEDICATIONS: Vancomycin 1 gram IV every 18 hours, insulin sliding scale, Plavix 75 mg by mouth daily, aspirin 81 mg by mouth daily, vitamin C 500 mg by mouth daily, gabapentin 100 mg by mouth three times a day, vitamin D 400 units by mouth twice a day, heparin subcu 5000 units every 12 hours, Pravachol 40 mg by mouth nightly, Advair two puffs inhaled twice a day, DuoNebs 3 mL every 6 hours, tramadol 50 mg by mouth every 4 hours as needed, Zosyn 3.375 grams IV every 6 hours - that has been discontinued. LABORATORY DATA: White count 7.3, hemoglobin 10.2, hematocrit 32.6, platelets 228. ESR 67. Sodium 139, potassium 3.6, chloride 104, bicarbonate 27, BUN 12, creatinine 0.97, glucose 143, calcium 8.6, CRP 3.48. Vancomycin trough 18.1. Wound culture had Staphylococcus (staph) aureus, susceptibilities are still pending, heavy growth. Blood cultures: No growth after 24 hours. Foot MRI done on 05/19/2019: Left foot without and with IV gadolinium shows a transmetatarsal amputation. There is amputation of the fifth metatarsal. There is no evidence of residual osteomyelitis. There is soft tissue swelling and irregularity. There is some edema. On physical exam, he is a pleasant gentleman, elderly, in no acute distress. Temperature is 98.1, pulse 105, respirations 18, blood pressure 110/82, oxygen saturation (O2 sat) 96% on 3 liters nasal cannula. Heart: Normal S1, S2, distant. Lungs: A few expiratory rhonchi bilaterally with diminished air entry. No wheezes or crackles. Abdomen: Obese, soft, nontender. Extremities: +1 ankle edema bilaterally with left foot erythema at the dorsal aspect of the foot, ray amputation of the fifth toe on the left side with sutures in place, erythema surrounding it, no tenderness. Minimal bloody discharge on the Optifoam dressing. Faint pulses of left posterior tibialis. IMPRESSION: 1. Acute osteomyelitis of the left toe, status post ray amputation with culture positive for MRSA at other hospital. On IV vancomycin. Zosyn was discontinued. 2. Peripheral vascular disease, status post angioplasty done by Dr. White of the left peroneal and posterior tibial artery. 3. Non-insulin dependent diabetes, currently on insulin sliding scale. Glucose have been fairly controlled between 90 and 190. PLAN: Continue IV vancomycin. Discontinue Zosyn. Continue to monitor wound healing. Hopefully with IV antibiotic and angioplasty, there is a chance of healing of this acute osteomyelitis and preservation of the leg.
[2019-05-20 18:00] VITALS: BP 112/70
[2019-05-20] MEDS: PRAVASTATIN 20 MG TAB PO SCH (20:36)
--- NOTE | 2019-05-20 20:51 | PHACANCOPD ---
PHARMACY VANCOMYCIN DOSING Pt Demographics Demographics Patient Age:83 , Weight:84.100 , Gender: male Events Past 24 Hours Events Past 24 Hours: NO: Dialysis, Diuretic Therapy, Change in CrCl, Fever, Elevation in WBC, Pending Diagnostics, Pending Procedures, Other Vancomycin Vancomycin indication: FOOT INFECTION Vancomycin Target Ranges: 10-20 mcg/ml Vancomycin Load Y/N: No Load Dose Date Time Vancomycin Load Dose: Date: Time: Vancomycin Dose Date: 05/17/19. Current Vancomycin Dose: [1GM IV Q18H] Intermittent Dosing?: No Labs Labs Item Value Date Time White Blood Count 7.3 10^3/uL 05/20/19557 Glomerular Filtration Rate > 60.0 05/20/19557 Creatinine 0.97 MG/DL 05/20/19557 Blood Urea Nitrogen 12 MG/DL # 05/20/19557 Vancomycin Level Trough 13.2 UG/ML 05/20/191956 Vital Signs Label Value Date Time Patient Temperature 98.1 degrees F 05/20/19 1800 Temperature Source Oral 05/20/19 1800 Micro Microbiology 05/18/19 Blood Culture - Preliminary, Resulted No growth after 24 hours . All specim... 05/18/19 Wound Culture - Preliminary, Resulted Staphylococcus Aureus Creatinine Clearance Date:05/17/19. Creatinine Clearance: [71 mL/min]. Assessment and Plan Maintaining Current Dose?: Yes Reason for dose change: No Dose Change Pharmacist Note Pharmacist Note Date: 05/20/19. Pharm.D. note: Trough of 13.2 is within target range. Will continue current dosing. Will continue to monitor and make adjustments as needed. DESHAWN CARREON PHARMACY May 20, 2019 20:51
[2019-05-20 22:00] VITALS: BP 146/67
[2019-05-20] MEDS: ACETAMINOPHEN TAB 650MG DOSE (2X325MG) PO PRN (22:55)
[2019-05-20] MEDS: SODIUM CHLORIDE 0.9% INJ 10 ML SYR IV PRN (23:03)
[2019-05-21] MEDS: IPRATROPIUM 0.5MG/ALBUTEROL 2.5MG INH SOL UD 3ML (DUONEB)(J7620) NEB SCH ×4 (01:09→19:33)
[2019-05-21] MEDS: SODIUM CHLORIDE 0.9% INJ 10 ML SYR IV SCH ×2 (05:01→17:34)
[2019-05-21 05:56] LABS: HEMATOCRIT 34.7 % (42.0-52.0); HEMOGLOBIN 10.7 g/dl (13.5-17.5); MEAN CORPUSCULAR HEMOGLOBIN 28.5 pg (27.0-33.0); MEAN CORPUSCULAR HGB CONC 30.8 g/dl (32.0-36.5); MEAN CORPUSCULAR VOLUME 92.5 fl (80.0-96.0); PLATELET COUNT, AUTOMATED 237 10^3/uL (150-450); RED BLOOD COUNT 3.75 10^6/uL (4.30-6.10); WHITE BLOOD COUNT 8.4 10^3/uL (4.0-10.0)
[2019-05-21 06:00] VITALS: BP 136/62
[2019-05-21 06:15] LABS: BLOOD UREA NITROGEN 11 MG/DL (7-18); CALCIUM LEVEL 8.7 MG/DL (8.8-10.2); CARBON DIOXIDE LEVEL 30 MEQ/L (21-32); CHLORIDE LEVEL 104 MEQ/L (98-107); CREATININE FOR GFR 0.86 MG/DL (0.70-1.30); GLOMERULAR FILTRATION RATE > 60.0 (>35); GLUCOSE, FASTING 139 MG/DL (70-100); POTASSIUM SERUM 3.9 MEQ/L (3.5-5.1); SODIUM LEVEL 137 MEQ/L (136-145)
[2019-05-21] MEDS: ADVAIR HFA 230/21MCG INHALER INH SCH ×2 (07:46→19:33)
[2019-05-21] MEDS: ASCORBIC ACID 500 MG TAB PO SCH (08:17)
[2019-05-21] MEDS: ASPIRIN 81 MG ENTERIC TAB PO SCH (08:17)
[2019-05-21] MEDS: CLOPIDOGREL 75 MG TAB PO SCH (08:17)
[2019-05-21] MEDS: VITAMIN D (CHOLECALCIFEROL) 400 INTERNATIONAL UNITS TAB PO SCH ×2 (08:17→22:08)
[2019-05-21] MEDS: GABAPENTIN 100 MG CAP PO SCH ×3 (08:17→22:08)
[2019-05-21] MEDS: HumaLOG INSULIN (NovoLOG) PER UNIT SC SCH ×4 (08:18→21:00)
[2019-05-21] MEDS: HEPARIN SOD (PORCINE) 5000 UNITS/ML VIAL SC SCH ×2 (08:19→22:09)
[2019-05-21] MEDS: traMADol 50 MG TAB PO PRN ×2 (08:21→22:10)
[2019-05-21 09:29] LABS: VANCOMYCIN RANDOM 14.4 UG/ML
--- NOTE | 2019-05-21 09:36 | PHACANCOPD ---
PHARMACY VANCOMYCIN DOSING Pt Demographics Demographics Patient Age:83 , Weight:84.100 , Gender: male Events Past 24 Hours Events Past 24 Hours: NO: Dialysis, Diuretic Therapy, Change in CrCl, Fever, Elevation in WBC, Pending Diagnostics, Pending Procedures, Other Vancomycin Vancomycin indication: FOOT INFECTION Vancomycin Target Ranges: 10-20 mcg/ml Vancomycin Load Y/N: No Load Dose Date Time Vancomycin Load Dose: Date: Time: Vancomycin Dose Date: 05/21/19. Current Vancomycin Dose: [1GM IV Q24H@11] Date: 05/17/19. Current Vancomycin Dose: [1GM IV Q18H] Intermittent Dosing?: No Labs Labs Item Value Date Time White Blood Count 10.6 10^3/uL H 05/19/19 0808 White Blood Count 7.3 10^3/uL 05/20/19 0558 White Blood Count 8.4 10^3/uL 05/21/19 0537 Erythrocyte Sedimentation Rate 67 mm/hr H 05/19/19 0808 C-Reactive Protein, Quantitative 3.48 MG/DL H 05/19/19 0808 Creatinine 0.88 MG/DL 05/19/19 0808 Creatinine 0.97 MG/DL 05/20/19 0558 Creatinine 0.86 MG/DL 05/21/19 0537 Vancomycin Level Trough 18.1 UG/ML 05/19/19 0808 Vancomycin Level Trough 13.2 UG/ML 05/20/19 1957 Random Vancomycin Level 14.4 UG/ML 05/21/19 0537 Vital Signs Label Value Date Time Patient Temperature 98.2 degrees F 05/20/19 2200 Temperature Source Temporal 05/20/19 2200 Patient Temperature 97.0 degrees F 05/21/19 0600 Temperature Source Temporal 05/21/19 0600 Micro Microbiology 05/18/19 Blood Culture - Preliminary, Resulted No Growth after 48 hours. All Specime... 05/18/19 Wound Culture - Final, Complete Staph.aureus Methicillin Resis Creatinine Clearance Date:05/17/19. Creatinine Clearance: [71 mL/min]. Assessment and Plan Maintaining Current Dose?: No Reason for dose change: Trough too low Pharmacist Note Pharmacist Note 05/21: A random was drawn this morning at 0537 which resulted at 14.4, which was approximately 9 hours after last dose give. Patient was adjusted to Vancomycin 1gm IV q12h starting at 11am today. He is afebrile, WBC is within normal limits, and his wound grew MRSA. We are treating acute osteomyelitis. We will continue to monitor and make adjustments as necessary. Date: 05/20/19. Pharm.D. note: Trough of 13.2 is within target range. Will continue current dosing. Will continue to monitor and make adjustments as needed. KATHERINE LEE PHARMACY May 21, 2019 09:36
--- NOTE | 2019-05-21 10:47 | IPNPDOC ---
Text Note Date of Service The patient was seen on 05/21/19. NOTE Subjective: No any acute events overnight, patient that left foot pain signif icantly subsided. Patient denies fever, chills, nausea, vomiting, shortness of breath, diarrhea or dysuria Objective: GENERAL APPEARANCE: NAD HEENT: Normocephalic, vision grossly intact, TMI RESPIRATORY: Diminished lung sounds bilaterally CARDIOVASCULAR: Regular rate and rhythm ABDOMEN: Soft nontender EXTREMITIES: no leg swelling, there is second stage ulcer of left lateral foot at the site of the fifth toe amputation, looks clean today, minimal serosanguineous drainage NEUROLOGICAL: Nonfocal Assessment and plan Patient is 83 years old male with past medical history of peripheral vascular d iseases, hyperlipidemia, COPD, neuropathy presented hospital for left leg vessels evaluation and left foot infected ulcer treatment PVD The patient has significant peripheral vascular disease contributory to poor healing of procedures to his feet. He currently has a poorly healing amputation site to his left fifth digit of his foot. On 05/18/19 arteriogram and angioplasty have been done. The left lower extremity common femoral artery has good flow into the profunda and the SFA on the SFA stents are patent. Popliteal artery is also widely patent. Below the knee, the anterior tibial artery occludes at its origin and it does not appear to reconstitute. The posterior tibial and peroneal arteries are very thready with intermittent near occlusions and no in-line flow to the foot but extensive ankle collateral circulation fills the plantar vessels. Angioplasty of the peroneal and posterior tibial artery after a challenging crossing through stenoses and occlusions in both vessels to the ankle was successful There is hope that the additional blood flow through the tibials will help with healing Acute osteomyelitis/Wound infection. The incision site to the left lateral foot at the site of the fifth toe amputation is purulent appearing. MRSA was isolated. We will continue treatment with vancomycin and Zosyn for now. On 05/18/19 Blood Cx negative and wound Cx shows MRSA, however the wound looks clean today MRI of left foot negative for osteomyelitis ID Dr. De Anda recommended continue IV vancomycin, patient can be discharge on linezolid 600 mg twice a day by mouth for next 2 weeks Wound care as per podiatry [id number] diabetes mellitus. Insulin sliding scale Diabetes diet Chronic respiratory failure due to oxygen dependent COPD Continue inhalers VS,Fishbone, I+O VS, Fishbone, I+O Laboratory Tests 05/21/19 05:37 Vital Signs Date Time Temp Pulse Resp B/P (MAP) Pulse Ox O2 Delivery O2 Flow Rate FiO2 05/21/19 08:51 16 05/21/19 06:00 97.0 68 136/62 (86) 99 Nasal Cannula 3.0 I&O- Last 24 Hours up to 6 AM 05/21/19 06:00 Intake Total 2602 ml Output Total 1170 ml Balance 1432 ml EMELY WALKER DO May 21, 2019 10:47
--- NOTE | 2019-05-21 12:08 | IPN ---
DATE OF SERVICE: 05/21/2019 The patient was seen and examined. Denies overnight complaints. PHYSICAL EXAMINATION: LOWER EXTREMITIES: Incision has no further gangrenous changes. There is good capillary refill to both margins. There is good bleeding on the wound dressing itself. MRI showed no signs of ongoing osteomyelitis. ASSESSMENT: This is an 83-year-old male with peripheral vascular disease, status post 5th toe ray amputation with gangrenous changes, status post angioplasty by Dr. White. PLAN: The patient can be discharged with oral antibiotics as recommended by Dr. De Anda. Continue current wound care with Optifoam. The patient has fair chance of limb salvage. He has good bleeding around the wound margins. I would not recommend any immediate debridement until wound can demarcate itself further. He should have followup with myself and Dr. Gann outpatient next week.
[2019-05-21] MEDS: VANCOMYCIN HCL 1,000 MG, VIAL MATE ADAPTER 1 EACH in D5W 250 ML IV SCH ×2 (12:38→23:03)
--- NOTE | 2019-05-21 13:22 | IPN ---
DATE: 05/21/2019 Mr. Lino is being evaluated by physical therapy for possible rehab. Otherwise he has no new complaints. No fever or chills. He has mild pain in his foot. He has been afebrile for the past 4 days. No nausea, vomiting or diarrhea. No abdominal pain. LABS: White count is 8.4, hemoglobin 10.7, hematocrit 34.7, platelets 237. Sodium 137, potassium 3.9, chloride 104, bicarb 30, BUN 11, creatinine 0.86, glucose 139, calcium 8.7. Vancomycin trough is 14.4. MEDICATIONS: - Vancomycin 1 gram IV every 12 hours - Zosyn has been discontinued Wound culture is positive for Methicillin-resistant Staphylococcus aureus (MRSA) of the left foot and blood cultures were negative. PHYSICAL EXAMINATION: On physical exam temperature is 97, pulse 68, respirations 20, blood pressure 136/62, O2 sat 99% on 3 liters nasal cannula. HEART: Normal S1, S2 regular. LUNGS: Expiratory rhonchi and diminished breath sounds bilaterally. ABDOMEN: Soft, nontender. No hepatosplenomegaly. EXTREMITIES: No edema. Left foot status post ray amputation with erythema on the dorsal aspect of the foot, minimal tenderness. There is also an ulcer on the second toe measuring about 1 x 1 cm, which is dry and has a scab. Tender to touch, but no purulence. Arms have multiple ecchymosis. Most of those wounds are covered by Optifoam dressings because they have skin tears. Right above the right elbow he has an ulcer that has purulent drainage measuring about 3 x 2 cm. IMPRESSION: 1. Acute osteomyelitis of the left foot status post ray amputation of the fifth toe with culture positive for MRSA doing well with IV vancomycin. The patient could be switched to oral linezolid 600 mg p.o. b.i.d. to finish a 2-week course. The patient had no osteomyelitis on MRI and therefore does not need IV antibiotic. 2. Peripheral vascular disease status post angiogram and angioplasty of the left common femoral artery. The patient has good flow to the leg. 3. Chronic obstructive pulmonary disease (COPD). Oxygen and prednisone dependent. PLAN: Discharge the patient home whenever he clears physical therapy with oral linezolid 600 mg p.o. b.i.d. to finish a 10 to 14 day course. Will obtain a followup CBC, CRP in the morning.
[2019-05-21 14:00] VITALS: BP 142/67
--- NOTE | 2019-05-21 15:10 | IPNPDOC ---
Date Seen The patient was seen on 05/21/19. Progress Note Patient seen and examined. He is sitting up in bed eating a full meal, and says he feels good today. Left foot MRI negative for osteomyelitis. Oral antibiotics recommended by Dr. De Anda. Local wound care recommended by Dr. Ramos for the left foot wound and he feels there is a good option for limb salvage at this point. This is excellent news. He recommends for the patient to follow-up with himself and Dr. Roe this week. From a vascular standpoint the patient is okay for discharge when ready from a medical standpoint. His left foot and perfusion is significantly improved with in-line flow through the peroneal and posterior tibial artery, but it would've been ideal if we could've opened the anterior tibial artery which serves the angiosome of the lateral foot. Nevertheless, 2 tibial vessel flow is much better than none, which is where we started. From a vascular standpoint and like to see the patient back in one month for a repeat arterial duplex to monitor patency of the left lower extremity intervention, and also discussed with the patient option for tibial intervention on the right lower extremity. This is not urgent, but the tibial flow on the right is just as dismal as the tibial flow was on the left. The patient was extensively counseled and all questions were answered. VS, I&O, 24H, Fishbone Vital Signs/I&O Vital Signs Date Time Temp Pulse Resp B/P (MAP) Pulse Ox O2 Delivery O2 Flow Rate FiO2 05/21/19 14:00 98.0 83 20 142/67 (92) 98 Nasal Cannula 3.0 I&O- Last 24 Hours up to 6 AM 05/21/19 06:00 Intake Total 2602 ml Output Total 1170 ml Balance 1432 ml Laboratory Data 24H LABS Laboratory Tests 2 05/20/19 16:49: Bedside Glucose (Misc Panel) 121H 05/20/19 19:57: Vancomycin Level Trough 13.2 05/20/19 20:21: Bedside Glucose (Misc Panel) 183H 05/21/19 05:37: Nucleated Red Blood Cells % (auto) 0.0, Anion Gap 3L, Glomerular Filtration Rate > 60.0, Calcium Level 8.7L, Random Vancomycin Level 14.4 05/21/19 11:39: Bedside Glucose (Misc Panel) 155H CBC/BMP Laboratory Tests 05/21/19 05:37 Microbiology Microbiology 05/18/19 Blood Culture - Preliminary, Resulted No Growth after 48 hours. All Specime... 05/18/19 Wound Culture - Final, Complete Staph.aureus Methicillin Resis PAMELA CARLISLE MD May 21, 2019 15:10
[2019-05-21] MEDS ORDERED: LINE1TAB6 PO (17:45)
[2019-05-21 22:00] VITALS: BP 150/60
[2019-05-21] MEDS: PRAVASTATIN 20 MG TAB PO SCH (22:08)
[2019-05-22] MEDS: SODIUM CHLORIDE 0.9% INJ 10 ML SYR IV PRN (00:45)
[2019-05-22] MEDS: IPRATROPIUM 0.5MG/ALBUTEROL 2.5MG INH SOL UD 3ML (DUONEB)(J7620) NEB SCH ×4 (02:00→19:44)
[2019-05-22 06:00] VITALS: BP 128/61
[2019-05-22] MEDS: SODIUM CHLORIDE 0.9% INJ 10 ML SYR IV SCH ×2 (06:07→17:24)
[2019-05-22 06:09] LABS: HEMATOCRIT 34.9 % (42.0-52.0); MEAN CORPUSCULAR HGB CONC 31.5 g/dl (32.0-36.5); MEAN CORPUSCULAR VOLUME 92.1 fl (80.0-96.0); PLATELET COUNT, AUTOMATED 247 10^3/uL (150-450); RED BLOOD COUNT 3.79 10^6/uL (4.30-6.10); WHITE BLOOD COUNT 8.3 10^3/uL (4.0-10.0)
[2019-05-22 06:36] LABS: BLOOD UREA NITROGEN 13 MG/DL (7-18); CALCIUM LEVEL 9.8 MG/DL (8.8-10.2); CARBON DIOXIDE LEVEL 32 MEQ/L (21-32); CHLORIDE LEVEL 100 MEQ/L (98-107); CREATININE FOR GFR 0.88 MG/DL (0.70-1.30); GLOMERULAR FILTRATION RATE > 60.0 (>35); GLUCOSE, FASTING 155 MG/DL (70-100); POTASSIUM SERUM 4.2 MEQ/L (3.5-5.1); SODIUM LEVEL 137 MEQ/L (136-145)
[2019-05-22] MEDS: ADVAIR HFA 230/21MCG INHALER INH SCH ×2 (07:10→19:44)
[2019-05-22] MEDS: ASPIRIN 81 MG ENTERIC TAB PO SCH (08:33)
[2019-05-22] MEDS: VITAMIN D (CHOLECALCIFEROL) 400 INTERNATIONAL UNITS TAB PO SCH ×2 (08:33→20:27)
[2019-05-22] MEDS: CLOPIDOGREL 75 MG TAB PO SCH (08:33)
[2019-05-22] MEDS: ASCORBIC ACID 500 MG TAB PO SCH (08:33)
[2019-05-22] MEDS: HEPARIN SOD (PORCINE) 5000 UNITS/ML VIAL SC SCH ×2 (08:34→20:27)
[2019-05-22] MEDS: GABAPENTIN 100 MG CAP PO SCH ×3 (08:34→20:27)
[2019-05-22] MEDS: HumaLOG INSULIN (NovoLOG) PER UNIT SC SCH ×4 (08:35→20:13)
[2019-05-22] MEDS: traMADol 50 MG TAB PO PRN ×2 (09:59→20:28)
[2019-05-22] MEDS: LINEZOLID 600MG TABLET (ZYVOX) PO SCH ×2 (12:13→20:27)
--- NOTE | 2019-05-22 12:44 | IPNPDOC ---
Text Note Date of Service The patient was seen on 05/22/19. NOTE Subjective: No any acute events overnight, slept well. Patient denies fever, chills, nausea, vomiting, shortness of breath, diarrhea or dysuria Objective: GENERAL APPEARANCE: NAD HEENT: Normocephalic, vision grossly intact, TMI RESPIRATORY: Diminished lung sounds bilaterally CARDIOVASCULAR: Regular rate and rhythm ABDOMEN: Soft nontender EXTREMITIES: no leg swelling, there is second stage ulcer of left lateral foot at the site of the fifth toe amputation, looks clean today, minimal serosanguineous drainage NEUROLOGICAL: Nonfocal Assessment and plan Patient is 83 years old male with past medical history of peripheral vascular diseases, hyperlipidemia, COPD, neuropathy presented hospital for left leg vessels evaluation and left foot infected ulcer treatment PVD The patient has significant peripheral vascular disease contributory to poor healing of procedures to his feet. He currently has a poorly healing amputation site to his left fifth digit of his foot. On 05/18/19 arteriogram and angioplasty have been done. The left lower extremity common femoral artery has good flow into the profunda and the SFA on the SFA stents are patent. Popliteal artery is also widely patent. Below the knee, the anterior tibial artery occludes at its origin and it does not appear to reconstitute. The posterior tibial and peroneal arteries are very thready with intermittent near occlusions and no in-line flow to the foot but extensive ankle collateral circulation fills the plantar vessels. Angioplasty of the peroneal and posterior tibial artery after a challenging crossing through stenoses and occlusions in both vessels to the ankle was successful There is hope that the additional blood flow through the tibials will help with healing Acute osteomyelitis/Wound infection. The incision site to the left lateral foot at the site of the fifth toe amputation is purulent appearing. MRSA was isolated. We will continue treatment with vancomycin and Zosyn for now. On 05/18/19 Blood Cx negative and wound Cx shows MRSA, however the wound looks clean today MRI of left foot negative for osteomyelitis ID Dr. De Anda recommended linezolid 600 mg twice a day by mouth for the next 2 weeks Wound care as per podiatry [id number]-wklmsqhfl diabetes mellitus. Insulin sliding scale Diabetes diet Chronic respiratory failure due to oxygen dependent COPD Continue inhalers VS,Fishbone, I+O VS, Fishbone, I+O Laboratory Tests 05/22/19 05:41 Vital Signs Date Time Temp Pulse Resp B/P (MAP) Pulse Ox O2 Delivery O2 Flow Rate FiO2 05/22/19 10:29 16 05/22/19 09:00 3.0 05/22/19 07:53 95 Nasal Cannula 05/22/19 06:00 98.0 70 128/61 (83) I&O- Last 24 Hours up to 6 AM 05/22/19 06:00 Intake Total 2120 ml Output Total 2475 ml Balance -355 ml EMELY WALKER DO May 22, 2019 12:44
[2019-05-22 14:00] VITALS: BP 148/52
[2019-05-22] MEDS: PRAVASTATIN 20 MG TAB PO SCH (20:27)
[2019-05-22 22:00] VITALS: BP 130/55
[2019-05-23] MEDS: IPRATROPIUM 0.5MG/ALBUTEROL 2.5MG INH SOL UD 3ML (DUONEB)(J7620) NEB SCH ×4 (01:45→19:20)
[2019-05-23 06:00] VITALS: BP 131/54
[2019-05-23 06:31] LABS: HEMATOCRIT 32.4 % (42.0-52.0); HEMOGLOBIN 10.5 g/dl (13.5-17.5); MEAN CORPUSCULAR HEMOGLOBIN 29.1 pg (27.0-33.0); MEAN CORPUSCULAR HGB CONC 32.4 g/dl (32.0-36.5); MEAN CORPUSCULAR VOLUME 89.8 fl (80.0-96.0); PLATELET COUNT, AUTOMATED 281 10^3/uL (150-450); RED BLOOD COUNT 3.61 10^6/uL (4.30-6.10)
[2019-05-23] MEDS: SODIUM CHLORIDE 0.9% INJ 10 ML SYR IV SCH ×2 (06:43→17:02)
[2019-05-23 07:00] LABS: BLOOD UREA NITROGEN 15 MG/DL (7-18); CALCIUM LEVEL 9.5 MG/DL (8.8-10.2); CARBON DIOXIDE LEVEL 32 MEQ/L (21-32); CHLORIDE LEVEL 99 MEQ/L (98-107); CREATININE FOR GFR 1.09 MG/DL (0.70-1.30); GLOMERULAR FILTRATION RATE > 60.0 (>35); GLUCOSE, FASTING 152 MG/DL (70-100); POTASSIUM SERUM 4.4 MEQ/L (3.5-5.1); SODIUM LEVEL 135 MEQ/L (136-145)
[2019-05-23] MEDS: ADVAIR HFA 230/21MCG INHALER INH SCH ×2 (07:15→19:20)
[2019-05-23] MEDS: CLOPIDOGREL 75 MG TAB PO SCH (08:00)
[2019-05-23] MEDS: ASCORBIC ACID 500 MG TAB PO SCH (08:00)
[2019-05-23] MEDS: ASPIRIN 81 MG ENTERIC TAB PO SCH (08:00)
[2019-05-23] MEDS: VITAMIN D (CHOLECALCIFEROL) 400 INTERNATIONAL UNITS TAB PO SCH ×2 (08:00→21:43)
[2019-05-23] MEDS: LINEZOLID 600MG TABLET (ZYVOX) PO SCH ×2 (08:00→21:44)
[2019-05-23] MEDS: HumaLOG INSULIN (NovoLOG) PER UNIT SC SCH ×4 (08:00→21:44)
[2019-05-23] MEDS: GABAPENTIN 100 MG CAP PO SCH ×3 (08:00→21:44)
[2019-05-23] MEDS: HEPARIN SOD (PORCINE) 5000 UNITS/ML VIAL SC SCH ×2 (08:01→21:43)
--- NOTE | 2019-05-23 12:08 | IPNPDOC ---
Text Note Date of Service The patient was seen on 05/23/19. NOTE Subjective: No any acute events overnight. Patient denies fever, chills, na usea, vomiting, shortness of breath, diarrhea or dysuria Objective: GENERAL APPEARANCE: NAD HEENT: Normocephalic, vision grossly intact, TMI RESPIRATORY: Diminished lung sounds bilaterally CARDIOVASCULAR: Regular rate and rhythm ABDOMEN: Soft nontender EXTREMITIES: no leg swelling, there is second stage ulcer of left lateral foot at the site of the fifth toe amputation, looks clean today, minimal serosanguineous drainage NEUROLOGICAL: Nonfocal Assessment and plan Patient is 83 years old male with past medical history of peripheral vascular diseases, hyperlipidemia, COPD, neuropathy presented hospital for left leg vessels evaluation and left foot infected ulcer treatment PVD The patient has significant peripheral vascular disease contributory to poor healing of procedures to his feet. He currently has a poorly healing amputation site to his left fifth digit of his foot. On 05/18/19 arteriogram and angioplasty have been done. The left lower extremity common femoral artery has good flow into the profunda and the SFA on the SFA stents are patent. Popliteal artery is also widely patent. Below the knee, the anterior tibial artery occludes at its origin and it does not appear to recon stitute. The posterior tibial and peroneal arteries are very thready with intermittent near occlusions and no in-line flow to the foot but extensive ankle collateral circulation fills the plantar vessels. Angioplasty of the peroneal and posterior tibial artery after a challenging crossing through stenoses and occlusions in both vessels to the ankle was successful There is hope that the additional blood flow through the tibials will help with healing Acute osteomyelitis/Wound infection. The incision site to the left lateral foot at the site of the fifth toe amputation is purulent appearing. MRSA was isolated. We will continue treatment with vancomycin and Zosyn for now. On 05/18/19 Blood Cx negative and wound Cx shows MRSA, however the wound looks clean today MRI of left foot negative for osteomyelitis ID Dr. De Anda recommended linezolid 600 mg twice a day by mouth for the next 2 weeks. On 05/22/19 that I switched vancomycin IV to linezolid by mouth Wound care as per podiatry Await ARU placement Leukocytosis On 05/23/19 White blood count count increased. Patient is afebrile, looks nontoxic Follow clinically Rxp-xggxtho-mohfiafuy diabetes mellitus. Insulin sliding scale Diabetes diet Chronic respiratory failure due to oxygen dependent COPD Continue inhalers VS,Fishbone, I+O VS, Fishbone, I+O Laboratory Tests 05/23/19 05:55 Vital Signs Date Time Temp Pulse Resp B/P (MAP) Pulse Ox O2 Delivery O2 Flow Rate FiO2 05/23/19 09:00 3.0 05/23/19 06:00 97.6 77 17 131/54 (79) 94 Nasal Cannula I&O- Last 24 Hours up to 6 AM 05/23/19 06:00 Intake Total 1750 ml Output Total 2525 ml Balance -775 ml EMELY WALKER DO May 23, 2019 12:08
[2019-05-23 14:00] VITALS: BP 128/50
[2019-05-23] MEDS: traMADol 50 MG TAB PO PRN ×2 (14:28→21:50)
--- NOTE | 2019-05-23 14:40 | IPNPDOC ---
Date Seen The patient was seen on 05/23/19. Progress Note Patient seen and examined. Left foot is warm and well-perfused with strong Doppler signals at the DP and PT. Patient says that is a little more tender today so I removed his dressing over the lateral foot. The proximal and distal edges of the incision are black, and the central portion has minimal serosanguineous drainage, possibly purulent. I thoroughly cleaned and irrigated the incision and central portion. No deep purulent pocket was found. No additional drainage could be expressed. This was quite painful for the patient. Dressing was reapplied. RN is bringing the patient analgesia as he requested. We will see how podiatry feels about the incision likely they will see the patient Friday. It's possible it will heal as is, versus needing additional debridement and possibly a wound VAC placement. I will leave this decision to Dr. Ramos. Hopefully the patient has adequate blood supply to heal at this point, and the foot is definitely better perfused. With a white count up to 13 today, my concern is that he may be starting to develop worsening infection in the incision. The ulcer over the left second toe is dry and stable. No erythema or induration is noted in that area. We will see how the foot looks tomorrow and discuss with our podiatry colleagues for further recommendations. VS, I&O, 24H, Fishbone Vital Signs/I&O Vital Signs Date Time Temp Pulse Resp B/P (MAP) Pulse Ox O2 Delivery O2 Flow Rate FiO2 05/23/19 14:28 16 05/23/19 14:00 98.1 88 128/50 (76) 98 Nasal Cannula 3.0 I&O- Last 24 Hours up to 6 AM 05/23/19 05:59 Intake Total 1750 ml Output Total 2525 ml Balance -775 ml Laboratory Data 24H LABS Laboratory Tests 2 05/22/19 16:24: Bedside Glucose (Misc Panel) 159H 05/22/19 20:07: Bedside Glucose (Misc Panel) 185H 05/23/19 05:55: Nucleated Red Blood Cells % (auto) 0.0, Anion Gap 4L, Glomerular Filtration Rate > 60.0, Calcium Level 9.5 05/23/19 11:18: Bedside Glucose (Misc Panel) 194H CBC/BMP Laboratory Tests 05/23/19 05:55 Microbiology Microbiology 05/18/19 Blood Culture - Preliminary, Resulted No Growth after 72 hours. All specime... 05/18/19 Wound Culture - Final, Complete Staph.aureus Methicillin Resis PAMELA CARLISLE MD May 23, 2019 14:40
[2019-05-23] MEDS: PRAVASTATIN 20 MG TAB PO SCH (21:43)
[2019-05-24] MEDS: IPRATROPIUM 0.5MG/ALBUTEROL 2.5MG INH SOL UD 3ML (DUONEB)(J7620) NEB SCH ×4 (00:29→19:26)
[2019-05-24 06:00] VITALS: BP 128/56
[2019-05-24 06:13] LABS: HEMATOCRIT 34.8 % (42.0-52.0); HEMOGLOBIN 10.8 g/dl (13.5-17.5); MEAN CORPUSCULAR HEMOGLOBIN 27.9 pg (27.0-33.0); MEAN CORPUSCULAR VOLUME 89.9 fl (80.0-96.0); PLATELET COUNT, AUTOMATED 270 10^3/uL (150-450); RED BLOOD COUNT 3.87 10^6/uL (4.30-6.10); WHITE BLOOD COUNT 10.3 10^3/uL (4.0-10.0)
[2019-05-24] MEDS: SODIUM CHLORIDE 0.9% INJ 10 ML SYR IV SCH ×2 (06:21→17:48)
[2019-05-24 06:38] LABS: BLOOD UREA NITROGEN 18 MG/DL (7-18); CARBON DIOXIDE LEVEL 31 MEQ/L (21-32); CHLORIDE LEVEL 99 MEQ/L (98-107); CREATININE FOR GFR 1.03 MG/DL (0.70-1.30); GLOMERULAR FILTRATION RATE > 60.0 (>35); GLUCOSE, FASTING 169 MG/DL (70-100); POTASSIUM SERUM 4.3 MEQ/L (3.5-5.1); SODIUM LEVEL 136 MEQ/L (136-145)
[2019-05-24] MEDS: ADVAIR HFA 230/21MCG INHALER INH SCH ×2 (07:37→19:27)
[2019-05-24] MEDS: HEPARIN SOD (PORCINE) 5000 UNITS/ML VIAL SC SCH ×2 (08:05→20:16)
[2019-05-24] MEDS: HumaLOG INSULIN (NovoLOG) PER UNIT SC SCH ×4 (08:05→20:18)
[2019-05-24] MEDS: GABAPENTIN 100 MG CAP PO SCH ×3 (08:06→20:16)
[2019-05-24] MEDS: ASPIRIN 81 MG ENTERIC TAB PO SCH (08:06)
[2019-05-24] MEDS: CLOPIDOGREL 75 MG TAB PO SCH (08:06)
[2019-05-24] MEDS: VITAMIN D (CHOLECALCIFEROL) 400 INTERNATIONAL UNITS TAB PO SCH ×2 (08:06→20:16)
[2019-05-24] MEDS: ASCORBIC ACID 500 MG TAB PO SCH (08:07)
[2019-05-24] MEDS: LINEZOLID 600MG TABLET (ZYVOX) PO SCH ×2 (08:07→20:16)
--- NOTE | 2019-05-24 11:36 | IPNPDOC ---
Subjective Date Seen The patient was seen on 05/24/19. Subjective Chief Complaint/HPI Patient complaining of wheezing after walking around the unit offers no other complaints General: Denies: ROS Unobtainable, Chills, Night Sweats, Fatigue, Malaise, Normal Appetite, Other Symptoms Constitutional: Denies: Chills, Fever, Malaise, Night Sweats, Weakness, Fatigue, Weight Loss, Lethargy, Other Eyes: Denies: Pain, Vision change, Conjunctivae inflammation, Eyelid inf lammation, Redness, Other ENT: Denies: Head Aches, Ear Pain, Dysphagia, Sinus Congestion, Post Nasal Drip, Sore Throat, Epistaxis, Other Symptoms Pulmonary: Reports: Dyspnea, Other Symptoms (reason) Cardiovascular: Denies: Chest Pain, Palpitations, Orthopnea, Paroxysmal Noc. Dyspnea, Edema, Lt Headedness, Other Symptoms Gastrointestinal: Denies: Nausea, Vomiting, Abdominal Pain, Diarrhea, Constipation, Melena, Hematochezia, Other Symptoms Musculoskeletal: Denies: Neck Pain, Back Pain, Shoulder Pain, Arm Pain, Hand Pain, Leg Pain, Foot Pain, Joint Pain, Muscle Pain, Spasms, Other Symptoms Neurological: Denies: Weakness, Numbness, Incoordination, Change in speech, Confusion, Seizures, Other Symptoms Objective Physical Examination General Exam: Positive: Alert, Cooperative, No Acute Distress, Other (the patient does appear his stated age of 83.) Eye Exam: Positive: Conjunctiva & lids normal; Negative: PERRLA, EOMI, Sclera icteric, Ptosis, Other Eye Symptoms ENT Exam: Positive: Atraumatic, Mucous membr. moist/pink, Tongue Midline, Nares Patent Neck Exam: Positive: Supple; Negative: JVD, thyromegaly Chest Exam: Positive: Wheezing (. Bilateral expiratory wheezing audible) Heart Exam: Positive: Rate Normal, Regular Rhythm, Normal S1, Normal S2; Negative: Murmurs, Rubs Abdomen Exam: Positive: Normal bowel sounds, Soft; Negative: Tenderness, Hepatospenomegaly Extremity Exam: Positive: Other (. Remarkably, the patient does not have remarkable lesions to the plantar surfaces of the feet.) Skin Exam: Positive: Lesion (with particular attention to his left lateral foot at the site of the amputation incision site has sutures but the incision is somewhat gapped. There has been bleeding and there is purulent exudate. Distally the site is tender to palpation) Neuro Exam: Positive: Normal Speech, Cranial Nerves 3-12 NL Psych Exam: Positive: Mood NL, Oriented x 3 Assessment /Plan Problems (1) COPD (chronic obstructive pulmonary disease) Status: Acute Problem Text: Exacerbation of COPD Start DuoNeb every 6 hours and every 2 hours when necessary Solu-Medrol 60 mg IV every -8 hours Oxygen support as needed (2) Cellulitis of foot Status: Acute Problem Text: Acute osteomyelitis/Wound infection. The incision site to the left lateral foot at the site of the fifth toe amputation is purulent appearing. MRSA was isolated. We will continue treatment with vancomycin and Zosyn for now. On 05/18/19 Blood Cx negative and wound Cx shows MRSA, however the wound looks clean today MRI of left foot negative for osteomyelitis ID Dr. De Anda recommended linezolid 600 mg twice a day by mouth for the next 2 weeks. On 05/22/19 that I switched vancomycin IV to linezolid by mouth Wound care as per podiatry Await rehabilitation placement (3) DM2 (diabetes mellitus, type 2) Status: Chronic Problem Text: Hak-wbxcylk-egmrtumnv diabetes mellitus. Insulin sliding scale Diabetes diet (4) PVD (peripheral vascular disease) Problem Text: PVD The patient has significant peripheral vascular disease contributory to poor healing of procedures to his feet. He currently has a poorly healing amputation site to his left fifth digit of his foot. On 05/18/19 arteriogram and angioplasty have been done. The left lower extremity common femoral artery has good flow into the profunda and the SFA on the SFA stents are patent. Popliteal artery is also widely patent. Below the knee, the anterior tibial artery occludes at its origin and it does not appear to reconstitute. The posterior tibial and peroneal arteries are very thready with intermittent near occlusions and no in-line flow to the foot but extensive ankle collateral circulation fills the plantar vessels. Angioplasty of the peroneal and posterior tibial artery after a challenging crossing through stenoses and occlusions in both vessels to the ankle was successful There is hope that the additional blood flow through the tibials will help with healing Plan/VTE VTE Prophylaxis Ordered?: Yes VS, I&O, 24H, Fishbone Vital Signs/I&O Vital Signs Date Time Temp Pulse Resp B/P (MAP) Pulse Ox O2 Delivery O2 Flow Rate FiO2 11/11/19 06:00 98.3 72 18 128/56 (80) 97 Nasal Cannula 3.0 I&O- Last 24 Hours up to 6 AM 05/24/19 06:00 Intake Total 1280 ml Output Total 1625 ml Balance -345 ml Laboratory Data 24H LABS Laboratory Tests 2 05/23/19 16:22: Bedside Glucose (Misc Panel) 168H 05/23/19 21:23: Bedside Glucose (Misc Panel) 278H 05/24/19 05:40: Nucleated Red Blood Cells % (auto) 0.0, Anion Gap 6L, Glomerular Filtration Rate > 60.0, Calcium Level 10.0 CBC/BMP Laboratory Tests 05/24/19 05:40 Microbiology Microbiology 05/18/19 Blood Culture - Final, Complete NO GROWTH AFTER 5 DAYS 05/18/19 Wound Culture - Final, Complete Staph.aureus Methicillin Resis MAG GUZMAN MD May 24, 2019 11:36
[2019-05-24] MEDS: traMADol 50 MG TAB PO PRN (11:53)
[2019-05-24 14:00] VITALS: BP 130/78
--- NOTE | 2019-05-24 16:57 | IPN ---
DATE OF SERVICE: 05/24/2019 The patient was seen and examined. He denies any complaints. He states that his foot is a little sore. Otherwise, he is doing well. Vitals were reviewed. He has remained afebrile. Laboratories are reviewed. White cell count is 10.3. Lower extremity examination: There is some fibrinous and some necrotic tissue in the wound itself. The wound margins appear to have good capillary refill. No malodor is noted. ASSESSMENT: 83-year-old male with peripheral vascular disease and wound dehiscence and ischemia, status post left fifth toe amputation. Bedside excisional debridement was performed with # 15 blade removing some of the necrotic tissue, with debridement including skin and subcutaneous tissue. We will start Santyl and Vashe dressings daily. We will follow. He will continue to have progressive wound debridements. This could be done while in the hospital or as an outpatient. TORY
[2019-05-24] MEDS: SANTYL OINT 30GM TOP SCH (17:47)
[2019-05-24 18:00] VITALS: BP 120/68
[2019-05-24] MEDS: PRAVASTATIN 20 MG TAB PO SCH (20:16)
[2019-05-25] MEDS: IPRATROPIUM 0.5MG/ALBUTEROL 2.5MG INH SOL UD 3ML (DUONEB)(J7620) NEB SCH ×4 (01:40→20:00)
[2019-05-25] MEDS: SODIUM CHLORIDE 0.9% INJ 10 ML SYR IV SCH ×2 (05:46→17:23)
[2019-05-25 06:00] VITALS: BP 123/58
[2019-05-25 06:20] LABS: HEMATOCRIT 31.7 % (42.0-52.0); HEMOGLOBIN 10.2 g/dl (13.5-17.5); MEAN CORPUSCULAR HGB CONC 32.2 g/dl (32.0-36.5); MEAN CORPUSCULAR VOLUME 90.1 fl (80.0-96.0); PLATELET COUNT, AUTOMATED 275 10^3/uL (150-450); RED BLOOD COUNT 3.52 10^6/uL (4.30-6.10); WHITE BLOOD COUNT 11.1 10^3/uL (4.0-10.0)
[2019-05-25 06:42] LABS: BLOOD UREA NITROGEN 18 MG/DL (7-18); CALCIUM LEVEL 9.3 MG/DL (8.8-10.2); CARBON DIOXIDE LEVEL 31 MEQ/L (21-32); CHLORIDE LEVEL 99 MEQ/L (98-107); CREATININE FOR GFR 1.05 MG/DL (0.70-1.30); GLOMERULAR FILTRATION RATE > 60.0 (>35); GLUCOSE, FASTING 160 MG/DL (70-100); SODIUM LEVEL 135 MEQ/L (136-145)
[2019-05-25] MEDS: ADVAIR HFA 230/21MCG INHALER INH SCH ×2 (07:23→20:33)
[2019-05-25] MEDS: ASPIRIN 81 MG ENTERIC TAB PO SCH (08:39)
[2019-05-25] MEDS: HEPARIN SOD (PORCINE) 5000 UNITS/ML VIAL SC SCH ×2 (08:39→19:55)
[2019-05-25] MEDS: GABAPENTIN 100 MG CAP PO SCH ×3 (08:39→19:55)
[2019-05-25] MEDS: ASCORBIC ACID 500 MG TAB PO SCH (08:39)
[2019-05-25] MEDS: VITAMIN D (CHOLECALCIFEROL) 400 INTERNATIONAL UNITS TAB PO SCH ×2 (08:39→19:54)
[2019-05-25] MEDS: HumaLOG INSULIN (NovoLOG) PER UNIT SC SCH ×4 (08:40→21:00)
[2019-05-25] MEDS: LINEZOLID 600MG TABLET (ZYVOX) PO SCH ×2 (08:40→19:55)
[2019-05-25] MEDS: SANTYL OINT 30GM TOP SCH (08:40)
[2019-05-25] MEDS: CLOPIDOGREL 75 MG TAB PO SCH (08:40)
--- NOTE | 2019-05-25 09:09 | IPNPDOC ---
Text Note Date of Service The patient was seen on 05/25/19. NOTE Vascular surgery. Dr. White. The patient is seen and examined this a.m. sitting up in bed eating breakfast. His left foot is warm and appears well-perfused with good Doppler signals at the DP and PT this AM. Dressing is intact over the lateral left foot. There is a sm all amount of bloody brownish drainage noted on the dressing. Status post wound debridement 05/24/19 as per Podiatry, Dr Ramos. WBC is noted to be 11.1, trend has been 10-13. The ulcer over the left second toe is dry and stable. No erythema or induration is noted in that area. Continue with wound care as per podiatry. Continue to follow. VS,Benitae, I+O VS, Benitae, I+O Laboratory Tests 05/25/19 05:37 Vital Signs Date Time Temp Pulse Resp B/P (MAP) Pulse Ox O2 Delivery O2 Flow Rate FiO2 05/25/19 06:00 97.0 77 18 123/58 (79) 94 Nasal Cannula 3.0 I&O- Last 24 Hours up to 6 AM 05/25/19 06:00 Intake Total 1314 ml Output Total 700 ml Balance 614 ml Mary Asif May 25, 2019 09:09
[2019-05-25] MEDS: traMADol 50 MG TAB PO PRN ×2 (11:13→22:14)
[2019-05-25 13:35] VITALS: BP 132/54
--- NOTE | 2019-05-25 13:38 | IPNPDOC ---
Subjective Date Seen The patient was seen on 05/25/19. Subjective Chief Complaint/HPI Patient wants to go home, but he has failed the physical therapy clearance. So far General: Denies: ROS Unobtainable, Chills, Night Sweats, Fatigue, Malaise, Normal Appetite, Other Symptoms Constitutional: Denies: Chills, Fever, Malaise, Night Sweats, Weakness, Fatigue, Weight Loss, Lethargy, Other Pulmonary: Denies: Dyspnea, Cough, Pleuritic Chest Pain, Other Symptoms Cardiovascular: Denies: Chest Pain, Palpitations, Orthopnea, Paroxysmal Noc. Dyspnea, Edema, Lt Headedness, Other Symptoms Gastrointestinal: Denies: Nausea, Vomiting, Abdominal Pain, Diarrhea, Constipation, Melena, Hematochezia, Other Symptoms Musculoskeletal: Denies: Neck Pain, Back Pain, Shoulder Pain, Arm Pain, Hand Pain, Leg Pain, Foot Pain, Joint Pain, Muscle Pain, Spasms, Other Symptoms Neurological: Denies: Weakness, Numbness, Incoordination, Change in speech, Confusion, Seizures, Other Symptoms Objective Physical Examination ENT Exam: Positive: Atraumatic, Mucous membr. moist/pink, Tongue Midline, Nares Patent Neck Exam: Positive: Supple; Negative: JVD, thyromegaly Chest Exam: Positive: Wheezing (. Bilateral expiratory wheezing audible) Heart Exam: Positive: Rate Normal, Regular Rhythm, Normal S1, Normal S2; Negative: Murmurs, Rubs Abdomen Exam: Positive: Normal bowel sounds, Soft; Negative: Tenderness, Hepatospenomegaly Extremity Exam: Positive: Other (. Remarkably, the patient does not have remarkable lesions to the plantar surfaces of the feet.) Skin Exam: Positive: Lesion (with particular attention to his left lateral foot at the site of the amputation incision site has sutures but the incision is somewhat gapped. There has been bleeding and there is purulent exudate. Distally the site is tender to palpation) Neuro Exam: Positive: Normal Speech, Cranial Nerves 3-12 NL Psych Exam: Positive: Mood NL, Oriented x 3 Assessment /Plan Problems (1) COPD (chronic obstructive pulmonary disease) Status: Acute Problem Text: Exacerbation of COPD Better air exchange today Start DuoNeb every 6 hours and every 2 hours when necessary Oxygen support as needed (2) Cellulitis of foot Status: Acute Problem Text: Acute osteomyelitis/Wound infection. The incision site to the left lateral foot at the site of the fifth toe amputation is purulent appearing. MRSA was isolated. We will continue treatment with vancomycin and Zosyn for now. On 05/18/19 Blood Cx negative and wound Cx shows MRSA, however the wound looks clean today MRI of left foot negative for osteomyelitis ID Dr. De Anda recommended linezolid 600 mg twice a day by mouth for the next 2 weeks. On 05/22/19 that I switched vancomycin IV to linezolid by mouth Wound care as per podiatry Patient not yet cleared from physical therapy for discharge (3) DM2 (diabetes mellitus, type 2) Status: Chronic Problem Text: Xos-jptjzyl-eluwltprl diabetes mellitus. Insulin sliding scale Diabetes diet (4) PVD (peripheral vascular disease) Problem Text: PVD The patient has significant peripheral vascular disease contributory to poor healing of procedures to his feet. He currently has a poorly healing amputation site to his left fifth digit of his foot. On 05/18/19 arteriogram and angioplasty have been done. The left lower extremity common femoral artery has good flow into the profunda and the SFA on the SFA stents are patent. Popliteal artery is also widely patent. Below the knee, the anterior tibial artery occludes at its origin and it does not appear to reconstitute. The posterior tibial and peroneal arteries are very thready with i ntermittent near occlusions and no in-line flow to the foot but extensive ankle collateral circulation fills the plantar vessels. Angioplasty of the peroneal and posterior tibial artery after a challenging crossing through stenoses and occlusions in both vessels to the ankle was successful There is hope that the additional blood flow through the tibials will help with healing Plan/VTE VTE Prophylaxis Ordered?: Yes VS, I&O, 24H, Fishbone Vital Signs/I&O Vital Signs Date Time Temp Pulse Resp B/P (MAP) Pulse Ox O2 Delivery O2 Flow Rate FiO2 05/25/19 11:43 18 Nasal Cannula 3.0 05/25/19 06:00 97.0 77 123/58 (79) 94 I&O- Last 24 Hours up to 6 AM 05/25/19 06:00 Intake Total 1314 ml Output Total 700 ml Balance 614 ml Laboratory Data 24H LABS Laboratory Tests 2 05/24/19 16:35: Bedside Glucose (Misc Panel) 187H 05/24/19 20:17: Bedside Glucose (Misc Panel) 220H 05/25/19 05:37: Nucleated Red Blood Cells % (auto) 0.0, Anion Gap 5L, Glomerular Filtration Rate > 60.0, Calcium Level 9.3 05/25/19 11:32: Bedside Glucose (Misc Panel) 227H CBC/BMP Laboratory Tests 05/25/19 05:37 Microbiology Microbiology 05/18/19 Blood Culture - Final, Complete NO GROWTH AFTER 5 DAYS 05/18/19 Wound Culture - Final, Complete Staph.aureus Methicillin Resis MAG GUZMAN MD May 25, 2019 13:38
[2019-05-25 14:00] VITALS: BP 152/67
--- NOTE | 2019-05-25 17:50 | IPN ---
DATE: 05/25/2019 Mr. Lino is doing fairly well except that he had some wound dehiscence and some purulent drainage from the left foot. He has no complaints except when the dressing is changed he does have some pain. He has had no fever or chills. No nausea, vomiting, or diarrhea. The patient does not care whether he goes home or stays in the hospital. He has a very flat affect. Temperature is 98.2, pulse 86, respirations 20, blood pressure 152/67, oxygen saturation 98% on 3 liters nasal cannula. HEART: Normal S1, S2. No murmurs. LUNGS: Diffuse exterior rhonchi bilaterally. ABDOMEN: Soft, nontender. No hepatosplenomegaly. EXTREMITIES: No edema. Left foot with incision measuring about 5 cm. Wound dehiscence with 2 cm with mild serosanguineous discharge. Cellulitis on the dorsal aspect of the foot has decreased. The redness is resolved. IMPRESSION: 1. Acute osteomyelitis of the left foot. Culture is positive for methicillin-resistant Staphylococcus aureus (MRSA), status post ray amputation. The patient on oral linezolid. He had been on intravenous (IV) vancomycin. Concern was for wound dehiscence and increasing C-reactive protein (CRP). 2. Type 2 diabetes, non-insulin dependent, on a sliding scale. 3. Peripheral vascular disease with poor healing and dehiscence. The patient had angioplasty done. PLAN: Repeat complete blood count (CBC), C-reactive protein (CRP) tomorrow. If CRP continues to increase, patient may need more debridement for repeating MRI to look for a deeper abscess.
[2019-05-25] MEDS: PRAVASTATIN 20 MG TAB PO SCH (19:55)
[2019-05-25 22:00] VITALS: BP 127/58
[2019-05-26] MEDS: IPRATROPIUM 0.5MG/ALBUTEROL 2.5MG INH SOL UD 3ML (DUONEB)(J7620) NEB SCH ×4 (02:00→20:00)
[2019-05-26] MEDS: SODIUM CHLORIDE 0.9% INJ 10 ML SYR IV SCH ×2 (05:53→17:19)
[2019-05-26 06:00] VITALS: BP 124/58
[2019-05-26 06:24] LABS: BASO # 0.1 10^3/uL (0.0-0.2); EOS # 0.2 10^3/uL (0.0-0.5); EOS % 2.2 % (0.0-3.0); HEMATOCRIT 33.3 % (42.0-52.0); HEMOGLOBIN 10.4 g/dl (13.5-17.5); MEAN CORPUSCULAR HEMOGLOBIN 28.3 pg (27.0-33.0); MEAN CORPUSCULAR HGB CONC 31.2 g/dl (32.0-36.5); MEAN CORPUSCULAR VOLUME 90.7 fl (80.0-96.0); MONO # 0.9 10^3/uL (0.0-0.8); MONO % 10.1 % (0.0-5.0); NEUTROPHILS # 6.8 10^3/uL (1.5-8.5); NEUTROPHILS % 74.8 % (36.0-66.0); PLATELET COUNT, AUTOMATED 254 10^3/uL (150-450); RED BLOOD COUNT 3.67 10^6/uL (4.30-6.10); WHITE BLOOD COUNT 9.1 10^3/uL (4.0-10.0)
[2019-05-26 06:50] LABS: ALBUMIN 2.4 GM/DL (3.2-5.2); ALT/SGPT 14 U/L (12-78); BILIRUBIN,TOTAL 0.3 MG/DL (0.2-1.0); BLOOD UREA NITROGEN 23 MG/DL (7-18); C REACTIVE PROTEIN QUANTITATIV 7.78 MG/DL (0.00-0.30); CALCIUM LEVEL 8.8 MG/DL (8.8-10.2); CARBON DIOXIDE LEVEL 31 MEQ/L (21-32); CHLORIDE LEVEL 100 MEQ/L (98-107); CREATININE FOR GFR 1.01 MG/DL (0.70-1.30); GLOMERULAR FILTRATION RATE > 60.0 (>35); GLUCOSE, FASTING 159 MG/DL (70-100); POTASSIUM SERUM 4.2 MEQ/L (3.5-5.1); SODIUM LEVEL 136 MEQ/L (136-145); TOTAL PROTEIN 6.8 GM/DL (6.4-8.2)
[2019-05-26] MEDS: ADVAIR HFA 230/21MCG INHALER INH SCH ×2 (07:17→20:03)
[2019-05-26] MEDS: HEPARIN SOD (PORCINE) 5000 UNITS/ML VIAL SC SCH ×2 (07:43→20:08)
[2019-05-26] MEDS: GABAPENTIN 100 MG CAP PO SCH ×3 (07:44→20:08)
[2019-05-26] MEDS: ASPIRIN 81 MG ENTERIC TAB PO SCH (07:44)
[2019-05-26] MEDS: SANTYL OINT 30GM TOP SCH (07:44)
[2019-05-26] MEDS: ASCORBIC ACID 500 MG TAB PO SCH (07:44)
[2019-05-26] MEDS: HumaLOG INSULIN (NovoLOG) PER UNIT SC SCH ×4 (07:44→21:00)
[2019-05-26] MEDS: LINEZOLID 600MG TABLET (ZYVOX) PO SCH ×2 (07:44→20:08)
[2019-05-26] MEDS: CLOPIDOGREL 75 MG TAB PO SCH (07:44)
[2019-05-26] MEDS: VITAMIN D (CHOLECALCIFEROL) 400 INTERNATIONAL UNITS TAB PO SCH ×2 (07:44→20:08)
[2019-05-26 08:57] VITALS: BP 125/57
[2019-05-26] MEDS: traMADol 50 MG TAB PO PRN ×2 (11:13→18:22)
--- NOTE | 2019-05-26 12:06 | IPNPDOC ---
Subjective Date Seen The patient was seen on 05/26/19. Subjective Chief Complaint/HPI Patient lying in bed, offers no new complaints at the present time is scheduled to be seen by podiatry today for possible re-debridement General: Denies: ROS Unobtainable, Chills, Night Sweats, Fatigue, Malaise, Normal Appetite, Other Symptoms Constitutional: Denies: Chills, Fever, Malaise, Night Sweats, Weakness, Fatigue, Weight Loss, Lethargy, Other Skin: Denies: Rash, Lesions, Jaundice, Bruising, Itching, Dry, Breakdown, Nail Changes, Other Pulmonary: Denies: Dyspnea, Cough, Pleuritic Chest Pain, Other Symptoms Cardiovascular: Denies: Chest Pain, Palpitations, Orthopnea, Paroxysmal Noc. Dyspnea, Edema, Lt Headedness, Other Symptoms Gastrointestinal: Denies: Nausea, Vomiting, Abdominal Pain, Diarrhea, Constipation, Melena, Hematochezia, Other Symptoms Musculoskeletal: Denies: Neck Pain, Back Pain, Shoulder Pain, Arm Pain, Hand Pain, Leg Pain, Foot Pain, Joint Pain, Muscle Pain, Spasms, Other Symptoms Neurological: Denies: Weakness, Numbness, Incoordination, Change in speech, Confusion, Seizures, Other Symptoms Objective Physical Examination ENT Exam: Positive: Atraumatic, Mucous membr. moist/pink, Tongue Midline, Nares Patent Neck Exam: Positive: Supple Chest Exam: Positive: Wheezing (. Bilateral expiratory wheezing audible) Heart Exam: Positive: Rate Normal, Regular Rhythm, Normal S1, Normal S2 Abdomen Exam: Positive: Normal bowel sounds, Soft Extremity Exam: Positive: Other (. Remarkably, the patient does not have remarkable lesions to the plantar surfaces of the feet.) Skin Exam: Positive: Lesion (with particular attention to his left lateral foot at the site of the amputation incision site has sutures but the incision is somewhat gapped. There has been bleeding and there is purulent exudate. Distally the site is tender to palpation) Neuro Exam: Positive: Normal Speech, Cranial Nerves 3-12 NL Psych Exam: Positive: Mood NL, Oriented x 3 Assessment /Plan Problems (1) COPD (chronic obstructive pulmonary disease) Status: Acute Problem Text: Exacerbation of COPD Improved air exchange and clear lungs on examination Start DuoNeb every 6 hours and every 2 hours when necessary Oxygen support as needed (2) Cellulitis of foot Status: Acute Problem Text: Acute osteomyelitis/Wound infection. The incision site to the left lateral foot at the site of the fifth toe amputation is purulent appearing. MRSA was isolated. We will continue treatment with vancomycin and Zosyn for now. On 05/18/19 Blood Cx negative and wound Cx shows MRSA, however the wound looks clean today MRI of left foot negative for osteomyelitis ID Dr. De Anda recommended linezolid 600 mg twice a day by mouth for the next 2 weeks. On 05/22/19 that I switched vancomycin IV to linezolid by mouth Dr. De Anda has recommended repeat podiatry follow-up for possible re-debridement today Physical therapy in progress (3) DM2 (diabetes mellitus, type 2) Status: Chronic Problem Text: Ttx-evxysbf-tcxvghywo diabetes mellitus. Insulin sliding scale Diabetes diet (4) PVD (peripheral vascular disease) Problem Text: PVD The patient has significant peripheral vascular disease contributory to poor healing of procedures to his feet. He currently has a poorly healing amputation site to his left fifth digit of his foot. On 05/18/19 arteriogram and angioplasty have been done. The left lower extremity common femoral artery has good flow into the profunda and the SFA on the SFA stents are patent. Popliteal artery is also widely patent. Below the knee, the anterior tibial artery occludes at its origin and it does not appear to reconstitute. The posterior tibial and peroneal arteries are very thready with intermittent near occlusions and no in-line flow to the foot but extensive ankle collateral circulation fills the plantar vessels. Angioplasty of the peroneal and posterior tibial artery after a challenging crossing through stenoses and occlusions in both vessels to the ankle was successful There is hope that the additional blood flow through the tibials will help with healing Plan/VTE VTE Prophylaxis Ordered?: Yes VS, I&O, 24H, Fishbone Vital Signs/I&O Vital Signs Date Time Temp Pulse Resp B/P (MAP) Pulse Ox O2 Delivery O2 Flow Rate FiO2 05/26/19 11:43 20 Nasal Cannula 3.0 05/26/19 08:57 97.5 76 125/57 (79) 95 I&O- Last 24 Hours up to 6 AM 05/26/19 06:00 Intake Total 1660 ml Output Total 825 ml Balance 835 ml Laboratory Data 24H LABS Laboratory Tests 2 05/25/19 16:40: Bedside Glucose (Misc Panel) 118H 11/12/19 21:13: Bedside Glucose (Misc Panel) 226H 05/26/19 05:53: Immature Granulocyte % (Auto) 0.9, Neutrophils (%) (Auto) 74.8H, Lymphocytes (%) (Auto) 11.0L, Monocytes (%) (Auto) 10.1H, Eosinophils (%) (Auto) 2.2, Basophils (%) (Auto) 1.0, Neutrophils # (Auto) 6.8, Lymphocytes # (Auto) 1.0L, Monocytes # (Auto) 0.9H, Eosinophils # (Auto) 0.2, Basophils # (Auto) 0.1, Nucleated Red Blood Cells % (auto) 0.0, Anion Gap 5L, Glomerular Filtration Rate > 60.0, Calcium Level 8.8, Total Bilirubin 0.3, Aspartate Amino Transf (AST/SGOT) 11, Alanine Aminotransferase (ALT/SGPT) 14, Alkaline Phosphatase 41L, C-Reactive Protein, Quantitative 7.78H, Total Protein 6.8, Albumin 2.4L, Albumin/Globulin Ratio 0.55L 05/26/19 11:38: Bedside Glucose (Misc Panel) 179H CBC/BMP Laboratory Tests 05/26/19 05:53 Microbiology Microbiology 05/18/19 Blood Culture - Final, Complete NO GROWTH AFTER 5 DAYS 05/18/19 Wound Culture - Final, Complete Staph.aureus Methicillin Resis MAG GUZMAN MD May 26, 2019 12:06
--- NOTE | 2019-05-26 13:43 | IPNPDOC ---
Text Note Date of Service The patient was seen on 05/26/19. NOTE Vascular surgery. Dr. White. The patient is seen and examined this a.m. sitting up in bed. His left foot is warm and appears well-perfused with good Doppler signals at the DP and PT this AM. Dressing is intact over the lateral left foot. There is a small amount of bloody brownish drainage noted on the dressing. Status post wound debridement 05/24/19 as per Podiatry, Dr Ramos. Additional debridement as per Dr. Ramos. Infectious disease continues to follow. WBC is noted to be 9.1, CRP 7.78. The ulcer over the left second toe is dry and stable. No erythema or induration is noted in that area. Continue with wound care as per podiatry. Continue to follow. VS,Fishbone, I+O VS, Fishbone, I+O Laboratory Tests 05/26/19 05:53 Vital Signs Date Time Temp Pulse Resp B/P (MAP) Pulse Ox O2 Delivery O2 Flow Rate FiO2 05/26/19 11:43 20 Nasal Cannula 3.0 05/26/19 08:57 97.5 76 125/57 (55) 95 I&O- Last 24 Hours up to 6 AM 05/26/19 05:59 Intake Total 1560 ml Output Total 1275 ml Balance 285 ml Mary Asif May 26, 2019 13:42
[2019-05-26 13:49] VITALS: BP 128/68
--- NOTE | 2019-05-26 14:00 | IPN ---
DATE: 05/26/2019 Patient seen and examined. He is a little groggy this afternoon. States he is tired after participating with therapy. Vitals are reviewed. He remains afebrile. Labs are reviewed. White blood cell count is 9.1. CRP is 7.l78. Lower extremity examination: Wound is inspected. There remains some fibrous slough within the wound. There is minimal redness surrounding the wound. There is loosening of this compared to examination on Friday. ASSESSMENT: 83-year-old male with peripheral vascular disease status post 5th toe amputation with subsequent wound dehiscence status post revascularization. PLAN: Continue Vashe and Santyl to loosen the fibrin slough. Will plan further debridements. He will ultimately have followup with Dr. Gann. He is tentatively scheduled Friday. Some consideration could again be given to hyperbaric option and if amenable to further help the wound.
[2019-05-26] MEDS: PRAVASTATIN 20 MG TAB PO SCH (20:08)
[2019-05-26 22:00] VITALS: BP 132/58
[2019-05-27] MEDS: IPRATROPIUM 0.5MG/ALBUTEROL 2.5MG INH SOL UD 3ML (DUONEB)(J7620) NEB SCH ×4 (01:46→19:44)
[2019-05-27] MEDS: SODIUM CHLORIDE 0.9% INJ 10 ML SYR IV SCH (05:52)
[2019-05-27 06:00] VITALS: BP 149/64
[2019-05-27 06:55] LABS: BASO # 0.1 10^3/uL (0.0-0.2); BASO % 0.6 % (0.0-1.0); EOS # 0.2 10^3/uL (0.0-0.5); EOS % 1.7 % (0.0-3.0); HEMATOCRIT 35.3 % (42.0-52.0); HEMOGLOBIN 11.3 g/dl (13.5-17.5); LYMPH % 9.3 % (24.0-44.0); MEAN CORPUSCULAR HEMOGLOBIN 29.1 pg (27.0-33.0); MONO # 0.9 10^3/uL (0.0-0.8); MONO % 7.7 % (0.0-5.0); NEUTROPHILS % 80.1 % (36.0-66.0); PLATELET COUNT, AUTOMATED 266 10^3/uL (150-450); RED BLOOD COUNT 3.88 10^6/uL (4.30-6.10); WHITE BLOOD COUNT 11.2 10^3/uL (4.0-10.0)
[2019-05-27 07:17] LABS: ALBUMIN 2.6 GM/DL (3.2-5.2); ALT/SGPT 15 U/L (12-78); BILIRUBIN,TOTAL 0.2 MG/DL (0.2-1.0); BLOOD UREA NITROGEN 21 MG/DL (7-18); CALCIUM LEVEL 9.2 MG/DL (8.8-10.2); CARBON DIOXIDE LEVEL 30 MEQ/L (21-32); CHLORIDE LEVEL 101 MEQ/L (98-107); CREATININE FOR GFR 0.98 MG/DL (0.70-1.30); GLOMERULAR FILTRATION RATE > 60.0 (>35); GLUCOSE, FASTING 153 MG/DL (70-100); POTASSIUM SERUM 4.1 MEQ/L (3.5-5.1); SODIUM LEVEL 136 MEQ/L (136-145); TOTAL PROTEIN 7.2 GM/DL (6.4-8.2)
[2019-05-27] MEDS: HumaLOG INSULIN (NovoLOG) PER UNIT SC SCH ×4 (07:30→21:00)
[2019-05-27] MEDS: LINEZOLID 600MG TABLET (ZYVOX) PO SCH ×2 (08:51→22:02)
[2019-05-27] MEDS: CLOPIDOGREL 75 MG TAB PO SCH (08:51)
[2019-05-27] MEDS: GABAPENTIN 100 MG CAP PO SCH ×3 (08:51→22:02)
[2019-05-27] MEDS: ASPIRIN 81 MG ENTERIC TAB PO SCH (08:51)
[2019-05-27] MEDS: ASCORBIC ACID 500 MG TAB PO SCH (08:51)
[2019-05-27] MEDS: VITAMIN D (CHOLECALCIFEROL) 400 INTERNATIONAL UNITS TAB PO SCH ×2 (08:51→22:02)
[2019-05-27] MEDS: HEPARIN SOD (PORCINE) 5000 UNITS/ML VIAL SC SCH ×2 (08:51→22:02)
[2019-05-27] MEDS: ADVAIR HFA 230/21MCG INHALER INH SCH ×2 (09:00→19:44)
[2019-05-27] MEDS: SANTYL OINT 30GM TOP SCH (09:00)
--- NOTE | 2019-05-27 11:44 | IPNPDOC ---
Subjective Date Seen The patient was seen on 05/27/19. Subjective Chief Complaint/HPI Patient comfortable, no distress, lying down in bed, offers no new complaints General: Denies: ROS Unobtainable, Chills, Night Sweats, Fatigue, Malaise, Normal Appetite, Other Symptoms Constitutional: Denies: Chills, Fever, Malaise, Night Sweats, Weakness, Fatigue, Weight Loss, Lethargy, Other Pulmonary: Denies: Dyspnea, Cough, Pleuritic Chest Pain, Other Symptoms Gastrointestinal: Denies: Nausea, Vomiting, Abdominal Pain, Diarrhea, Constipation, Melena, Hematochezia, Other Symptoms Musculoskeletal: Denies: Neck Pain, Back Pain, Shoulder Pain, Arm Pain, Hand Pain, Leg Pain, Foot Pain, Joint Pain, Muscle Pain, Spasms, Other Symptoms Neurological: Denies: Weakness, Numbness, Incoordination, Change in speech, Confusion, Seizures, Other Symptoms Objective Physical Examination ENT Exam: Positive: Atraumatic, Mucous membr. moist/pink, Tongue Midline, Nares Patent Neck Exam: Positive: Supple Chest Exam: Positive: Wheezing (. Bilateral expiratory wheezing audible) Heart Exam: Positive: Rate Normal, Regular Rhythm, Normal S1, Normal S2 Abdomen Exam: Positive: Normal bowel sounds, Soft Extremity Exam: Positive: Other (. Remarkably, the patient does not have remarkable lesions to the plantar surfaces of the feet.) Skin Exam: Positive: Lesion (with particular attention to his left lateral foot at the site of the amputation incision site has sutures but the incision is somewhat gapped. There has been bleeding and there is purulent exudate. Distally the site is tender to palpation) Neuro Exam: Positive: Normal Speech, Cranial Nerves 3-12 NL Psych Exam: Positive: Mood NL, Oriented x 3 Assessment /Plan Problems (1) COPD (chronic obstructive pulmonary disease) Status: Acute Problem Text: Exacerbation of COPD Improved air exchange and clear lungs on examination Start DuoNeb every 6 hours and every 2 hours when necessary Oxygen support as needed Continue present meds (2) Cellulitis of foot Status: Acute Problem Text: Acute osteomyelitis/Wound infection. The incision site to the left lateral foot at the site of the fifth toe amputation is purulent appearing. MRSA was isolated. We will continue treatment with vancomycin and Zosyn for now. On 05/18/19 Blood Cx negative and wound Cx shows MRSA, however the wound looks clean today MRI of left foot negative for osteomyelitis ID Dr. De Anda recommended linezolid 600 mg twice a day by mouth for the next 2 weeks. On 05/22/19 that I switched vancomycin IV to linezolid by mouth As per podiatry, Continue vashe and santyl to resume the fibrin slough and podiatry is planning further debridement Patient would follow with Dr. Gann as an outpatient once discharged from here Continue dressing as per podiatry (3) DM2 (diabetes mellitus, type 2) Status: Chronic Problem Text: Grz-khmsjbh-vxwjavwad diabetes mellitus. Insulin sliding scale Diabetes diet (4) PVD (peripheral vascular disease) Problem Text: PVD The patient has significant peripheral vascular disease contributory to poor healing of procedures to his feet. He currently has a poorly healing amputation site to his left fifth digit of his foot. On 05/18/19 arteriogram and angioplasty have been done. The left lower extremity common femoral artery has good flow into the profunda and the SFA on the SFA stents are patent. Popliteal artery is also widely patent. Below the knee, the anterior tibial artery occludes at its origin and it does not appear to reconstitute. The posterior tibial and peroneal arteries are very thready with intermittent near occlusions and no in-line flow to the foot but extensive ankle collateral circulation fills the plantar vessels. Angioplasty of the peroneal and posterior tibial artery after a challenging crossing through stenoses and occlusions in both vessels to the ankle was successful There is hope that the additional blood flow through the tibials will help with healing Plan/VTE VTE Prophylaxis Ordered?: Yes VS, I&O, 24H, Fishbone Vital Signs/I&O Vital Signs Date Time Temp Pulse Resp B/P (MAP) Pulse Ox O2 Delivery O2 Flow Rate FiO2 05/27/19 10:00 3.0 05/27/19 06:00 97.9 78 20 149/64 (92) 97 Nasal Cannula I&O- Last 24 Hours up to 6 AM 05/27/19 06:00 Intake Total 900 ml Output Total 1175 ml Balance -275 ml Laboratory Data 24H LABS Laboratory Tests 2 05/26/19 12:21: Magnesium Level 1.9 05/26/19 16:52: Bedside Glucose (Misc Panel) 158H 05/26/19 20:56: Bedside Glucose (Misc Panel) 182H 05/27/19 06:24: Immature Granulocyte % (Auto) 0.6, Neutrophils (%) (Auto) 80.1H, Lymphocytes (%) (Auto) 9.3L, Monocytes (%) (Auto) 7.7H, Eosinophils (%) (Auto) 1.7, Basophils (%) (Auto) 0.6, Neutrophils # (Auto) 9.0H, Lymphocytes # (Auto) 1.0L, Monocytes # (Auto) 0.9H, Eosinophils # (Auto) 0.2, Basophils # (Auto) 0.1, Nucleated Red Blood Cells % (auto) 0.0, Anion Gap 5L, Glomerular Filtration Rate > 60.0, Calcium Level 9.2, Total Bilirubin 0.2, Aspartate Amino Transf (AST/SGOT) 11, Alanine Aminotransferase (ALT/SGPT) 15, Alkaline Phosphatase 47, Total Protein 7.2, Albumin 2.6L, Albumin/Globulin Ratio 0.57L CBC/BMP Laboratory Tests 05/27/19 06:24 Microbiology Microbiology 05/18/19 Blood Culture - Final, Complete NO GROWTH AFTER 5 DAYS 05/18/19 Wound Culture - Final, Complete Staph.aureus Methicillin Resis MAG GUZMAN MD May 27, 2019 11:44
[2019-05-27 14:00] VITALS: BP 131/54
[2019-05-27 22:00] VITALS: BP 132/58
[2019-05-27] MEDS: PRAVASTATIN 20 MG TAB PO SCH (22:02)
[2019-05-27] MEDS: traMADol 50 MG TAB PO PRN (22:03)
[2019-05-28] MEDS: IPRATROPIUM 0.5MG/ALBUTEROL 2.5MG INH SOL UD 3ML (DUONEB)(J7620) NEB SCH ×2 (02:00→07:37)
[2019-05-28 06:00] VITALS: BP 137/62
[2019-05-28] MEDS: ADVAIR HFA 230/21MCG INHALER INH SCH ×2 (07:37→19:57)
[2019-05-28] MEDS: HEPARIN SOD (PORCINE) 5000 UNITS/ML VIAL SC SCH ×2 (09:16→21:48)
[2019-05-28] MEDS: SANTYL OINT 30GM TOP SCH (09:16)
[2019-05-28] MEDS: ASPIRIN 81 MG ENTERIC TAB PO SCH (09:16)
[2019-05-28] MEDS: GABAPENTIN 100 MG CAP PO SCH ×3 (09:16→21:48)
[2019-05-28] MEDS: VITAMIN D (CHOLECALCIFEROL) 400 INTERNATIONAL UNITS TAB PO SCH ×2 (09:16→21:47)
[2019-05-28] MEDS: ASCORBIC ACID 500 MG TAB PO SCH (09:16)
[2019-05-28] MEDS: LINEZOLID 600MG TABLET (ZYVOX) PO SCH ×2 (09:16→21:48)
[2019-05-28] MEDS: CLOPIDOGREL 75 MG TAB PO SCH (09:16)
[2019-05-28] MEDS: HumaLOG INSULIN (NovoLOG) PER UNIT SC SCH ×4 (09:17→21:00)
--- NOTE | 2019-05-28 10:52 | IPNPDOC ---
Text Note Date of Service The patient was seen on 05/28/19. NOTE Vascular surgery. Dr. White. The patient is seen and examined this a.m. sitting up in bed. His left foot is warm and appears well-perfused with good Doppler signals at the DP and PT this AM. Dressing remains intact over the lateral left foot. There is a small amount of bloody brownish drainage noted on the dressing. Status post wound debridement 05/24/19 as per Podiatry, Dr Ramos. Additional debridement as per Dr. Ramos. Infectious disease continues to follow. WBC is noted to be 11.2, Last CRP 7.78. The ulcer over the left second toe is dry and stable. No erythema or induration is noted in that area. Continue with wound care as per podiatry. Continue to follow. VS,Fishbone, I+O VS, Fishbone, I+O Vital Signs Date Time Temp Pulse Resp B/P (MAP) Pulse Ox O2 Delivery O2 Flow Rate FiO2 05/28/19 06:00 97.5 79 20 137/62 (87) 97 Nasal Cannula 3.0 I&O- Last 24 Hours up to 6 AM 05/28/19 06:00 Intake Total 450 ml Output Total 375 ml Balance 75 ml Mary Asif May 28, 2019 10:52
--- NOTE | 2019-05-28 11:26 | IPNPDOC ---
Subjective Date Seen The patient was seen on 05/28/19. Subjective Chief Complaint/HPI Patient is comfortable in no apparent distress. Physical therapy in progress General: Denies: ROS Unobtainable, Chills, Night Sweats, Fatigue, Malaise, Normal Appetite, Other Symptoms Constitutional: Denies: Chills, Fever, Malaise, Night Sweats, Weakness, Fatigue, Weight Loss, Lethargy, Other Pulmonary: Denies: Dyspnea, Cough, Pleuritic Chest Pain, Other Symptoms Cardiovascular: Denies: Chest Pain, Palpitations, Orthopnea, Paroxysmal Noc. Dyspnea, Edema, Lt Headedness, Other Symptoms Gastrointestinal: Denies: Nausea, Vomiting, Abdominal Pain, Diarrhea, Constipation, Melena, Hematochezia, Other Symptoms Musculoskeletal: Denies: Neck Pain, Back Pain, Shoulder Pain, Arm Pain, Hand Pain, Leg Pain, Foot Pain, Joint Pain, Muscle Pain, Spasms, Other Symptoms Neurological: Denies: Weakness, Numbness, Incoordination, Change in speech, Confusion, Seizures, Other Symptoms Objective Physical Examination ENT Exam: Positive: Atraumatic, Mucous membr. moist/pink, Tongue Midline, Nares Patent Neck Exam: Positive: Supple Chest Exam: Positive: Wheezing (. Bilateral expiratory wheezing audible) Heart Exam: Positive: Rate Normal, Regular Rhythm, Normal S1, Normal S2 Abdomen Exam: Positive: Normal bowel sounds, Soft Extremity Exam: Positive: Other (. Remarkably, the patient does not have remarkable lesions to the plantar surfaces of the feet.) Skin Exam: Positive: Lesion (with particular attention to his left lateral foot at the site of the amputation incision site has sutures but the incision is somewhat gapped. There has been bleeding and there is purulent exudate. Distally the site is tender to palpation) Neuro Exam: Positive: Normal Speech, Cranial Nerves 3-12 NL Psych Exam: Positive: Mood NL, Oriented x 3 Assessment /Plan Problems (1) COPD (chronic obstructive pulmonary disease) Status: Acute Problem Text: Exacerbation of COPD Improved air exchange and clear lungs on examination DC his scheduled DuoNeb discontinue DuoNeb every 2 hours when necessary Oxygen support as needed Continue present meds (2) Cellulitis of foot Status: Acute Problem Text: Acute osteomyelitis/Wound infection. The incision site to the left lateral foot at the site of the fifth toe amputation is purulent appearing. MRSA was isolated. We will continue treatment with vancomycin and Zosyn for now. On 05/18/19 Blood Cx negative and wound Cx shows MRSA, however the wound looks clean today MRI of left foot negative for osteomyelitis ID Dr. De Anda recommended linezolid 600 mg twice a day by mouth for the next 2 weeks. On 05/22/19 that I switched vancomycin IV to linezolid by mouth As per podiatry, Continue vashe and santyl to resume the fibrin slough and podiatry is planning further debridement Patient would follow with Dr. Gann as an outpatient once discharged from here Continue dressing as per podiatry (3) DM2 (diabetes mellitus, type 2) Status: Chronic Problem Text: Syz-gncikri-otpmgfzrd diabetes mellitus. Insulin sliding scale Diabetes diet (4) PVD (peripheral vascular disease) Problem Text: PVD The patient has significant peripheral vascular disease contributory to poor healing of procedures to his feet. He currently has a poorly healing amputation site to his left fifth digit of his foot. On 05/18/19 arteriogram and angioplasty have been done. The left lower extremity common femoral artery has good flow into the profunda and the SFA on the SFA stents are patent. Popliteal artery is also widely patent. Below the knee, the anterior tibial artery occludes at its origin and it does not appear to reconstitute. The posterior tibial and peroneal arteries are very thready with intermittent near occlusions and no in-line flow to the foot but extensive ankle collateral circulation fills the plantar vessels. Angioplasty of the peroneal and posterior tibial artery after a challenging cr ossing through stenoses and occlusions in both vessels to the ankle was successful There is hope that the additional blood flow through the tibials will help with healing Plan/VTE VTE Prophylaxis Ordered?: Yes VS, I&O, 24H, Fishbone Vital Signs/I&O Vital Signs Date Time Temp Pulse Resp B/P (MAP) Pulse Ox O2 Delivery O2 Flow Rate FiO2 05/28/19 09:00 3.0 05/28/19 06:00 97.5 79 20 137/62 (87) 97 Nasal Cannula I&O- Last 24 Hours up to 6 AM 05/28/19 06:00 Intake Total 450 ml Output Total 375 ml Balance 75 ml Laboratory Data 24H LABS Laboratory Tests 2 05/27/19 11:34: Bedside Glucose (Misc Panel) 168H 05/27/19 16:27: Bedside Glucose (Misc Panel) 148H 05/27/19 20:48: Bedside Glucose (Misc Panel) 153H 05/28/19 06:19: Bedside Glucose (Misc Panel) 145H Microbiology Microbiology 05/18/19 Blood Culture - Final, Complete NO GROWTH AFTER 5 DAYS 05/18/19 Wound Culture - Final, Complete Staph.aureus Methicillin Resis MAG GUZMAN MD May 28, 2019 11:26
[2019-05-28] MEDS: traMADol 50 MG TAB PO PRN (12:12)
--- NOTE | 2019-05-28 13:08 | IPN ---
DATE OF SERVICE: 05/28/2019 The patient was seen and examined. Denies any new complaints. Vitals were reviewed. Vitals were reviewed. He is afebrile. Laboratories are reviewed. Most recent white blood cell count was 11.2. Lower extremity examination: Wound margins remain well perfused. The wound itself has further sloughy, fibrous tissue. No purulence is noted or malodor. ASSESSMENT: 83-year-old male with peripheral vascular disease and wound dehiscence, status post fifth toe amputation. PLAN: Wound was debrided, including subcutaneous tissue with a #15 blade. Continue Santyl and Vashe. He has an appointment with Dr. Gann on Friday. Recommend he make that followup for reevaluation for hyperbaric. His maximum revascularization potential; however, diminished blood flow to the lateral flow. We will follow.
[2019-05-28 14:00] VITALS: BP 122/64
--- NOTE | 2019-05-28 15:54 | IPN ---
DATE: 05/17/2019 SUBJECTIVE: Mr. Lino is seen and examined this morning. He currently states that he is feeling well. He does not complain of any left foot pain. The patient's C-reactive protein appears to have elevated for the past week, today 7.78, which is decreased from yesterday at 10.10. The patient is currently planned to have further debridement by Dr. Ramos today. He is currently continued on Zyvox at 100 mg twice a day. The patient is planned for discharge on Friday with followup at Dr. Gann's office. Regarding the patient's peripheral vascular disease, it appears that he has good arterial flow to his left foot. OBJECTIVE: Vital signs: Temperature 97.5, pulse 79, respiratory rate 20, blood pressure 137/62, pulse oximetry 97% on 3 liters nasal cannula. GENERAL: The patient is awake, alert. He does not appear in acute distress. He is lying comfortably in bed. HEENT: Atraumatic, normocephalic. The patient's eyes are nonicteric. Trachea is midline. CARDIOVASCULAR: Normal S1, S2. Regular rate and rhythm. No clicks, rubs or murmurs. RESPIRATORY: The patient has some diffuse rhonchi bilaterally. He has good respiratory effort. There are no wheezes. There is symmetric chest expansion. There is no accessory muscle use. ABDOMEN: The patient's abdomen is soft. Nondistended. There is no tenderness. There are no palpable masses. Normoactive bowel sounds throughout. EXTREMITIES: The patient has no edema in bilateral lower extremities. He has a left foot incision that is approximately 5 cm, currently bandaged. There is some drainage, which is serosanguineous coming from the wound. There is no significant erythema surrounding the patient's wound. NEUROLOGIC: No focal neurologic deficits. PSYCHIATRIC: The patient's mood is appropriate. He has a flat affect. LABORATORY DATA: C-reactive protein from 05/26/2019 is 7.78. ASSESSMENT AND PLAN: 1. Acute osteomyelitis of the left foot with culture positive for methicillin resistant Staphylococcus aureus (MRSA), status post amputation. The patient is currently on oral linezolid. He has received IV vancomycin. His C-reactive protein was elevated on 05/26/2019. The patient has received initial debridement today with plans to followup outpatient with Dr. Gann on Friday. 2. Type 2 diabetes mellitus, non-insulin dependent. The patient is currently on sliding scale in the hospital. His glucose has been under fairly good control. 3. Peripheral vascular disease with poor healing. THe patient has had angioplasty done. It appears that his blood flow is adequate. PLAN: The patient will be continued on linezolid upon discharge. MTDD
[2019-05-28] MEDS: PRAVASTATIN 20 MG TAB PO SCH (21:47)
[2019-05-29 06:00] VITALS: BP 135/55
[2019-05-29 06:00] LABS: HEMATOCRIT 33.6 % (42.0-52.0); HEMOGLOBIN 10.7 g/dl (13.5-17.5); MEAN CORPUSCULAR HEMOGLOBIN 28.7 pg (27.0-33.0); MEAN CORPUSCULAR HGB CONC 31.8 g/dl (32.0-36.5); MEAN CORPUSCULAR VOLUME 90.1 fl (80.0-96.0); PLATELET COUNT, AUTOMATED 271 10^3/uL (150-450); RED BLOOD COUNT 3.73 10^6/uL (4.30-6.10); WHITE BLOOD COUNT 9.4 10^3/uL (4.0-10.0)
[2019-05-29] MEDS: ADVAIR HFA 230/21MCG INHALER INH SCH (07:53)
[2019-05-29] MEDS: ASCORBIC ACID 500 MG TAB PO SCH (09:28)
[2019-05-29] MEDS: CLOPIDOGREL 75 MG TAB PO SCH (09:28)
[2019-05-29] MEDS: VITAMIN D (CHOLECALCIFEROL) 400 INTERNATIONAL UNITS TAB PO SCH (09:28)
[2019-05-29] MEDS: ASPIRIN 81 MG ENTERIC TAB PO SCH (09:28)
[2019-05-29] MEDS: GABAPENTIN 100 MG CAP PO SCH (09:28)
[2019-05-29] MEDS: LINEZOLID 600MG TABLET (ZYVOX) PO SCH (09:28)
[2019-05-29] MEDS: HEPARIN SOD (PORCINE) 5000 UNITS/ML VIAL SC SCH (09:29)
[2019-05-29] MEDS: SANTYL OINT 30GM TOP SCH (09:29)
[2019-05-29] MEDS: HumaLOG INSULIN (NovoLOG) PER UNIT SC SCH ×2 (09:30→12:40)
[2019-05-29] MEDS ORDERED: SANT250O8 TOP (10:48)
--- NOTE | 2019-05-29 11:58 | DS.PDOC ---
Discharge Summary General Date of Admission May 17, 2019 at 16:22 Date of Discharge 05/29/19 Discharge Summary PROCEDURES PERFORMED DURING STAY: None. ADMITTING DIAGNOSES: 1. Left leg and foot cellulitis. DISCHARGE DIAGNOSES: 1. Left leg and foot cellulitis, diabetes mellitus, diabetic neuropathy, diabet ic vasculopathy, PVD. COMPLICATIONS/CHIEF COMPLAINT: Left Leg And Foot Cellulitis. HISTORY OF PRESENT ILLNESS: This is an 83-year-old male who has ckb-mbrriyn-gwriqphow diabetes mellitus with neuropathy and vasculopathy. He has been having worsening ambulation function with frequent falls. He has been undergoing care by podiatry and wound care to his feet. He has had multiple debridements to foot lesions. He has had multiple vascularization procedures with stent placements. He is continued to have poor circulation to his feet. Most recently he has had to undergo left fifth toe amputation. The patient almost immediately had poor healing to the site. Patient was seen again by the surgeon and left below the knee amputation was suggested. Patient has come to [facility] for [facility] opinion. He is hopeful of further vascular intervention for limb preservation. He denies having any remarkable pain to the site. He denies any fever or chills. Blood cultures obtained at the outlying facility are negative, but wound culture is positive for MRSA. He was being treated with Vanco and Zosyn prior to transfer.. HOSPITAL COURSE: Acute osteomyelitis/Wound infection of left foot The incision site to the left lateral foot at the site of the fifth toe amputation is purulent appearing. MRSA was isolated. We will continue treatment with vancomycin and Zosyn for now. On 05/18/19 Blood Cx negative and wound Cx shows MRSA, however the wound looks clean today MRI of left foot negative for osteomyelitis ID Dr. De Anda recommended linezolid 600 mg twice a day by mouth for the next 2 weeks. On 05/22/19 that I switched vancomycin IV to linezolid by mouth As per podiatry, Continue vashe and santyl to resume the fibrin slough and podiatry is planning further debridement Pt will follow with Dr. Gann on 05/31/2019 as an outpatient Continue dressings as described by podiatry. Prescription has been called called in and patient will follow with podiatry as an outpatient in 1-2 weeks Exacerbation of COPD: Resolved Improved air exchange and clear lungs on examination Continue on his home medications Afj-nmffubp-myetoemxk diabetes mellitus. Insulin sliding scale Diabetes diet Extensive peripheral vascular disease The patient has significant peripheral vascular disease contributory to poor healing of procedures to his feet. He currently has a poorly healing amputation site to his left fifth digit of his foot. On 05/18/19 arteriogram and angioplasty have been done. The left lower extremity common femoral artery has good flow into the profunda and the SFA on the SFA stents are patent. Popliteal artery is also widely patent. Below the knee, the anterior tibial artery occludes at its origin and it does not appear to reconstitute. The posterior tibial and peroneal arteries are very thready with intermittent near occlusions and no in-line flow to the foot but extensive ankle collateral circulation fills the plantar vessels. Angioplasty of the peroneal and posterior tibial artery after a challenging crossing through stenoses and occlusions in both vessels to the ankle was successful There is hope that the additional blood flow through the tibials will help with healing. DISCHARGE MEDICATIONS: Please see below. ALLERGIES: Please see below. PHYSICAL EXAMINATION ON DISCHARGE: VITAL SIGNS: Please see below. GENERAL: Within normal limits HEENT: PERRLA. Extraocular muscles intact NECK: Supple CARDIOVASCULAR EXAMINATION: S1, S2, regular RESPIRATORY EXAMINATION: Clear to A&P ABDOMINAL EXAMINATION: Benign EXTREMITIES: Testing of the left foot. Pulses positive bilaterally SKIN: Normal NEUROLOGICAL EXAMINATION: No focal motor sensory deficit PSYCHIATRIC EXAMINATION: Normal LABORATORY DATA: Please see below. IMAGING: Foot MRI:Status post transmetatarsal amputation with soft tissue sinus tract from the bony amputation stump to the overlying lateral skin. No evidence of abnormal T1 signal intensity in the remaining fifth metatarsal to suggest ongoing osteomyelitis. There is some enhancing marrow edema. PROGNOSIS: Good ACTIVITY: As tolerated. DIET: As tolerated, consistent carbohydrate diet DISCHARGE PLAN: Patient will follow with Dr. Gann on Friday DISPOSITION: . DISCHARGE INSTRUCTIONS: 1. As per discharge instruction. ITEMS TO FOLLOWUP ON ON OUTPATIENT: 1. Follow with Dr. Gann on Friday and a event operations manager in 1-2 weeks. DISCHARGE CONDITION: Stable. TIME SPENT ON DISCHARGE: 46 minutes. Vital Signs/I&Os Vital Signs Date Time Temp Pulse Resp B/P (MAP) Pulse Ox O2 Delivery O2 Flow Rate FiO2 05/29/19 06:00 98.9 74 18 135/55 (81) 93 Nasal Cannula 3.0 I&O- Last 24 Hours up to 6 AM 05/29/19 06:00 Intake Total 954 ml Output Total 1900 ml Balance -946 ml Laboratory Data Labs 24H Laboratory Tests 2 05/28/19 16:47: Bedside Glucose (Misc Panel) 185H 05/28/19 20:49: Bedside Glucose (Misc Panel) 178H 05/29/19 05:41: Nucleated Red Blood Cells % (auto) 0.0, C-Reactive Protein, Quantitative 11.20H 05/29/19 07:52: Bedside Glucose (Misc Panel) 168H CBC/BMP Laboratory Tests 05/29/19 05:41 FSBS Laboratory Tests Test 05/28/19 16:47 05/28/19 20:49 05/29/19 07:52 Range/Units Bedside Glucose (Misc Panel) 185 178 168 83-110 MG/DL Discharge Medications Scheduled Ascorbic Acid (Vitamin C) 500 Mg Tablet, 500 MG PO DAILY, (Reported) Aspirin (Aspir 81) 81 Mg Tablet.dr, 81 MG PO DAILY, (Reported) Cholecalciferol (Vitamin D3) (Vitamin D3) 400 Unit Tablet, 400 UNIT PO BID, (Reported) Clopidogrel Bisulfate (Clopidogrel) 75 Mg Tablet, 75 MG PO DAILY, (Reported) Collagenase Clostridium Hist. (Santyl) 30 Gm Oint...g., 0 DOSE TOP DAILY Gabapentin (Gabapentin) 100 Mg Capsule, 100 MG PO TID, (Reported) Glipizide (Glipizide ER) 5 Mg Tab.er.24, 5 MG PO DAILY, (Reported) Linezolid (Linezolid) 600 Mg Tablet, 600 MG PO BID Metformin HCl (Metformin HCl) 500 Mg Tablet, 1,000 MG PO BID, (Reported) Pantoprazole Sodium (Pantoprazole Sodium) 20 Mg Tablet.dr, 20 MG PO DAILY, (Reported) Pravastatin Sodium (Pravastatin Sodium) 40 Mg Tablet, 40 MG PO QHS, (Reported) Prednisone (Prednisone) 10 Mg Tablet, 10 MG PO DAILY, (Reported) Salmeterol/Fluticasone (Advair 500-50 Diskus) 1 Each Blst.w.dev, 1 PUFF INH BID, (Reported) Scheduled PRN Albuterol Sulfate (Albuterol Sulfate Hfa) 8.5 Gm Hfa.aer.ad, 1 PUFF INH Q4H PRN for SOB/WHEEZING, (Reported) Ipratropium/Albuterol Sulfate (Iprat-Albut 0.5-3(2.5) mg/3 ml) 3 Ml Ampul.neb, 1 VIAL PO QID PRN for SOB/WHEEZING, (Reported) Tramadol HCl (Tramadol HCl) 50 Mg Tablet, 50 MG PO Q6H PRN for PAIN, (Reported) Allergies Coded Allergies: No Known Allergies (Unverified , 03/11/19) MAG GUZMAN MD May 29, 2019 11:58
== END 2019-05-29 12:49 | disposition home health service (06) | DRG 253 ==
LOC: M MSPAV 16:22
PROVIDERS: ADMIT Internal Medicine; ATTEND Internal Medicine
PROC: 047S3DZ Dilation of Left Posterior Tibial Artery with Intraluminal Device, Percutaneous Approach (ICD-10-PCS; 2019-05-18)
PROC: 02HV33Z Insertion of Infusion Device into Superior Vena Cava, Percutaneous Approach (ICD-10-PCS; 2019-05-18)
PROC: 047U3D1 Dilation of Left Peroneal Artery with Intraluminal Device, using Drug-Coated Balloon, Percutaneous Approach (ICD-10-PCS; principal; 2019-05-18 14:00)
PROC: 0JBR0ZZ Excision of Left Foot Subcutaneous Tissue and Fascia, Open Approach (ICD-10-PCS; 2019-05-24)
PROC: 0JDR0ZZ Extraction of Left Foot Subcutaneous Tissue and Fascia, Open Approach (ICD-10-PCS; 2019-05-28)
DX: E11.52 Type 2 diabetes mellitus with diabetic peripheral angiopathy with gangrene (principal); J96.11 Chronic respiratory failure with hypoxia; T87.42 Infection of amputation stump, left upper extremity; L03.116 Cellulitis of left lower limb; L97.528 Non-pressure chronic ulcer of other part of left foot with other specified severity; J44.1 Chronic obstructive pulmonary disease with (acute) exacerbation; I70.245 Atherosclerosis of native arteries of left leg with ulceration of other part of foot; E11.42 Type 2 diabetes mellitus with diabetic polyneuropathy; E78.5 Hyperlipidemia, unspecified; K21.9 Gastro-esophageal reflux disease without esophagitis; R29.6 Repeated falls; B95.62 Methicillin resistant Staphylococcus aureus infection as the cause of diseases classified elsewhere; K59.00 Constipation, unspecified; R53.81 Other malaise; Z86.14 Personal history of Methicillin resistant Staphylococcus aureus infection; Z89.422 Acquired absence of other left toe(s); Z98.62 Peripheral vascular angioplasty status; Z87.891 Personal history of nicotine dependence; Z90.49 Acquired absence of other specified parts of digestive tract; Z98.49 Cataract extraction status, unspecified eye; Z79.82 Long term (current) use of aspirin; Z79.84 Long term (current) use of oral hypoglycemic drugs; Z79.52 Long term (current) use of systemic steroids; Z79.899 Other long term (current) drug therapy; Z99.81 Dependence on supplemental oxygen; Y83.6 Removal of other organ (partial) (total) as the cause of abnormal reaction of the patient, or of later complication, without mention of misadventure at the time of the procedure

== ENCOUNTER 2019-07-11 12:39 | Inpatient (IN) | payer MEDICARE, BC ==
[~2019-07-11] VITALS: Ht 182.9 cm; Wt 79.0 kg
[~2019-07-11 12:39] MED LIST changes: +ASPI81TA85 PO; +D3400TAB PO; +LINE1TAB6 PO; +SANT250O8 TOP; +TRAM50TA2 PO; +VITA-158 PO
[2019-07-11 13:25] LABS: BASO # 0.1 10^3/uL (0.0-0.2); BASO % 0.3 % (0.0-1.0); EOS % 0.1 % (0.0-3.0); HEMATOCRIT 39.2 % (42.0-52.0); LYMPH # 0.7 10^3/uL (1.5-5.0); LYMPH % 2.2 % (24.0-44.0); MEAN CORPUSCULAR HEMOGLOBIN 27.6 pg (27.0-33.0); MEAN CORPUSCULAR HGB CONC 30.6 g/dl (32.0-36.5); MEAN CORPUSCULAR VOLUME 90.1 fl (80.0-96.0); NEUTROPHILS % 89.8 % (36.0-66.0); PLATELET COUNT, AUTOMATED 247 10^3/uL (150-450); RED BLOOD COUNT 4.35 10^6/uL (4.30-6.10)
[2019-07-11] MEDS ORDERED: NS 1,000 ML IV ONE (13:30)
[2019-07-11 13:40] LABS: INR 1.13; PROTHROMBIN TIME 14.2 SECONDS (11.8-14.0)
--- NOTE | 2019-07-11 13:40 | REP ---
Clinical: Trauma. Fall. Technique: Axial noncontrast images from the skull base to the vertex with coronal and sagittal re-formations. Comparison: None . Findings: Age-related atrophy with periventricular leukomalacia and microvascular ischemic changes are appreciated. The ventricles and sulci are symmetric. Cope-white differentiation is maintained. There is no evidence for acute intracranial hemorrhage, mass/mass effect, pathology or infarction. No extra-axial fluid collection. Calvarium is intact. Paranasal sinuses and mastoid air cells are clear. Impression: Age related atrophy and microvascular ischemic changes. No acute intracranial hemorrhage, edema or mass/mass effect. Electronically Signed by Octavio Montelongo MD 07/11/2019 01:31 P
--- NOTE | 2019-07-11 13:47 | REP ---
Clinical: Fever. Comparison: None. Findings: Mediastinum and cardiac silhouette are within normal limits. Lung mahan demonstrate COPD/emphysematous changes and chronic interstitial changes. Superimposed infiltrate in the right mid lung zone noted. No effusion. No pneumothorax. Skeletal structures intact. Impression: Moderate right mid lung infiltrate compatible with pneumonia. Follow-up to resolution. Electronically Signed by Octavio Montelongo MD 07/11/2019 01:38 P
[2019-07-11] MEDS ORDERED: CVS400CA PO (13:50)
[2019-07-11] MEDS ORDERED: OMEP-218 PO (13:50)
[2019-07-11] MEDS ORDERED: NYST1CRE15 TOP (13:50)
[2019-07-11] MEDS ORDERED: MUCI1TAB16 PO (13:52)
[2019-07-11] MEDS ORDERED: METOCLOPRAMIDE INJ 10MG/2ML VIAL (J2765) IV ONE (14:00)
[2019-07-11 14:08] LABS: NEUTROPHILS # 29.8 10^3/uL (1.5-8.5); WHITE BLOOD COUNT 33.2 10^3/uL (4.0-10.0)
[2019-07-11] MEDS ORDERED: CEFTAROLINE FOSAMIL 600 MG in D5W MINI-BAG PLUS 50 ML IV ONE (14:30)
[2019-07-11] MEDS ORDERED: ACETAMINOPHEN TAB 650MG DOSE (2X325MG) PO PRN (15:15)
[2019-07-11] MEDS ORDERED: MAALOX 30 ML SUSP *UDC PO PRN (15:15)
[2019-07-11] MEDS ORDERED: ONDANSETRON 4MG/2ML VIAL (J2405) IV PRN (15:15)
[2019-07-11] MEDS ORDERED: MOM 30ML SUSPENSION UDC PO PRN (15:15)
[2019-07-11] MEDS ORDERED: CEFTAROLINE FOSAMIL 300 MG in D5W 50 ML IV SCH (15:15)
[2019-07-11 15:17] LABS: ALBUMIN 2.8 GM/DL (3.2-5.2); BILIRUBIN,DIRECT 0.2 MG/DL (0.0-0.2); BILIRUBIN,TOTAL 0.5 MG/DL (0.2-1.0); CALCIUM LEVEL 8.9 MG/DL (8.8-10.2); CK-MB VALUE MASS 1.1 NG/ML (<3.6); CREATININE FOR GFR 1.33 MG/DL (0.70-1.30); GLOMERULAR FILTRATION RATE 54.8 (>35); MB/CK RELATIVE INDEX 3.44 (< OR =4); POTASSIUM SERUM 4.4 MEQ/L (3.5-5.1); TROPONIN I 0.03 NG/ML (< 0.10)
[2019-07-11] MEDS ORDERED: MYCOLOG CREAM 15 GM (NYSTATIN/TRIAMCINOLONE) TOP PRN (15:30)
[2019-07-11] MEDS ORDERED: GLUCOSE 4 GM CHEW TABLET PO PRN (15:30)
[2019-07-11] MEDS ORDERED: IPRATROPIUM 0.5MG/ALBUTEROL 2.5MG INH SOL UD 3ML (DUONEB)(J7620) NEB PRN (15:30)
[2019-07-11] MEDS ORDERED: DEXTROSE 50% 50 ML SYRINGE IV PRN (15:30)
[2019-07-11] MEDS ORDERED: guaiFENesin ER 600 MG TAB PO PRN (15:30)
[2019-07-11] MEDS ORDERED: traMADol 50 MG TAB PO PRN (15:30)
[2019-07-11] MEDS ORDERED: GLUCAGON FOR INJ 1 MG VIAL (J1610) SC PRN (15:30)
--- NOTE | 2019-07-11 15:38 | HPEPDOC ---
General Date of Admission 07/11/19 Date of Service: Jul 11, 2019 Chief Complaint The patient is a 83-year-old male admitted with a reason for visit of Left Foot Pain. Source: Patient, RN/MD, [facility] Care[facility]/Aid Exam Limitations: Physical impairment, Mild cognitive slowing Timing/Duration: 24 hours Severity: Other (not applicable) Associated Symptoms: Mechanical fall History of Present Illness This is a 83 years old white male who was recently admitted to this hospital and discharge on 05/29/2019 after he had amputation of left fifth toe and was treated for left leg and foot cellulitis with IV antibiotics. Patient is a poor historian secondary to mild cognitive disorder also Physical deconditioning, but as per patient's son who takes care of him. Patient is not feeling very well, is tired, fatigue. His left foot wound is infected. Also possibly he fell last night mechanism unknown, but he was found on the floor with no apparent injuries. No history of shortness of breath, fever, chest pain, syncope, loss of consciousness, etc. Home Medications Scheduled Ascorbic Acid (Vitamin C) 500 Mg Tablet, 500 MG PO DAILY, (Reported) Aspirin (Aspir 81) 81 Mg Tablet.dr, 81 MG PO DAILY, (Reported) Cholecalciferol (Vitamin D3) (Vitamin D3) 400 Unit Capsule, 400 UNIT PO DAILY, (Reported) Clopidogrel Bisulfate (Clopidogrel) 75 Mg Tablet, 75 MG PO DAILY, (Reported) Gabapentin (Gabapentin) 100 Mg Capsule, 100 MG PO TID, (Reported) Glipizide (Glipizide ER) 5 Mg Tab.er.24, 5 MG PO DAILY, (Reported) Metformin HCl (Metformin HCl) 500 Mg Tablet, 1,000 MG PO BID, (Reported) Omeprazole (Omeprazole) 20 Mg Capsule.dr, 20 MG PO DAILY, (Reported) Pravastatin Sodium (Pravastatin Sodium) 40 Mg Tablet, 40 MG PO QHS, (Reported) Prednisone (Prednisone) 10 Mg Tablet, 10 MG PO DAILY, (Reported) Salmeterol/Fluticasone (Advair 500-50 Diskus) 1 Each Blst.w.dev, 1 PUFF INH BID, (Reported) Scheduled PRN Albuterol Sulfate (Albuterol Sulfate Hfa) 8.5 Gm Hfa.aer.ad, 1 PUFF INH Q4H PRN for SOB/WHEEZING, (Reported) Guaifenesin (Mucinex) 1,200 Mg Tab.er.12h, 1,200 MG PO BID PRN for CONGESTION, (Reported) Ipratropium/Albuterol Sulfate (Iprat-Albut 0.5-3(2.5) mg/3 ml) 3 Ml Ampul.neb, 1 VIAL PO QID PRN for SOB/WHEEZING, (Reported) Nystatin/Triamcin (Nystatin-Triamcinolone Cream) 15 Gm Cream..g., 1 APPLIC TOP BID PRN for BED SORES, (Reported) APPLY TO BUTTOCKS Tramadol HCl (Tramadol HCl) 50 Mg Tablet, 50 MG PO Q6H PRN for PAIN, (Reported) Allergies Coded Allergies: No Known Allergies (Unverified , 03/11/19) Past Medical History Medical History Diabetes mellitus type 2, chronic hypoxic respiratory failure, oxygen dependent COPD on 3 L nasal cannula, peripheral neuropathy, vasculopathy, dyslipidemia, gastroesophageal reflux disease, constipation, MRSA cellulitis of left foot. Debility and dementia Surgical History Left fifth toe amputation, pilonidal sixth excision, cholecystectomy, cataract surgery, mild, multiple lower extremity angioplasties Family History Family history of diabetes and cancer on both sides of his parents Social History * Smoker: former Smoker Alcohol: Denies Drugs: denies A-FIB/CHADSVASC A-FIB History Current/History of A-Fib/PAF?: No Review of Systems Constitutional: Reports: Malaise, Weakness Eyes: Denies: Pain, Vision change, Conjunctivae inflammation, Eyelid inflammation, Redness, Other ENT: Denies: Head Aches, Ear Pain, Dysphagia, Sinus Congestion, Post Nasal Drip, Sore Throat, Epistaxis, Other Symptoms Skin: Denies: Rash, Lesions, Jaundice, Bruising, Itching, Dry, Breakdown, Nail Changes, Other Pulmonary: Denies: Dyspnea, Cough, Pleuritic Chest Pain, Other Symptoms Cardiovascular: Denies: Chest Pain, Palpitations, Orthopnea, Paroxysmal Noc. Dyspnea, Edema, Lt Headedness, Other Symptoms Gastrointestinal: Denies: Nausea, Vomiting, Abdominal Pain, Diarrhea, Constipation, Melena, Hematochezia, Other Symptoms Genitourinary: Denies: Dysuria, Frequency, Incontinence, Hematuria, Retention, Other Symptoms Hematologic: Denies: Bruising, Bleeding Excessively, Petecchia, Purpura, Enlarged Lymph Nodes, Other Hematologic Endocrine: Denies: Polydipsia, Polyphagia, Polyuria, Heat Intolerance, Cold Intolerance, Other Endocrine Sx Musculoskeletal: Reports: Other Symptoms (left foot open wound at the previous surgical site) Neurological: Denies: Weakness, Numbness, Incoordination, Change in speech, Confusion, Seizures, Other Symptoms Psych: Denies: Mood Normal, Anxiety, Depression, Memory Issues, Thoughts of Self Harm, Anger, Thoughts of Harming Other, Other Psych Physical Examination General Exam: Positive: Alert, Cooperative, Other Eye Exam: Positive: PERRLA, Conjunctiva & lids normal ENT Exam: Positive: Atraumatic, Mucous membr. moist/pink Neck Exam: Positive: Supple Chest Exam: Positive: Other (crackles at the right base. Decreased breath sounds bilaterally but no wheezing) Heart Exam: Positive: Rate Normal, Normal S1, Normal S2 Abdomen Exam: Positive: Normal bowel sounds, Soft Extremity Exam: Positive: Other (dressing on left foot. Unable to see the wound as dressing was recently checked) Neuro Exam: Positive: Strength at 5/5 X4 ext, Sensation Intact Psych Exam: Positive: Mood NL Vital Signs Vital Signs Date Time Temp Pulse Resp B/P (MAP) Pulse Ox O2 Delivery O2 Flow Rate FiO2 07/11/19 13:20 07/11/19 13:00 100 92 Nasal Cannula 3.0 07/11/19 12:40 97.9 18 Laboratory Data Labs 24H Laboratory Tests 2 07/11/19 13:14: Immature Granulocyte % (Auto) 1.6, Neutrophils (%) (Auto) 89.8H, Lymphocytes (%) (Auto) 2.2L, Monocytes (%) (Auto) 6.0H, Eosinophils (%) (Auto) 0.1, Basophils ( %) (Auto) 0.3, Neutrophils # (Auto) 29.8H, Lymphocytes # (Auto) 0.7L, Monocytes # (Auto) 2.0H, Eosinophils # (Auto) 0.0, Basophils # (Auto) 0.1, Nucleated Red Blood Cells % (auto) 0.0, Prothrombin Time 14.2H, Prothromb Time International Ratio 1.13, Lactic Acid Level 4.2*H 07/11/19 14:38: Anion Gap 10, Glomerular Filtration Rate 54.8, Calcium Level 8.9, Total Bilirubin 0.5, Direct Bilirubin 0.2, Aspartate Amino Transf (AST/SGOT) 9, Alanine Aminotransferase (ALT/SGPT) 14, Alkaline Phosphatase 47, Total Creatine Kinase 32L, Creatine Kinase MB 1.1, Creatine Kinase MB Relative Index 3.44, Troponin I 0.03, Total Protein 7.0, Albumin 2.8L, Albumin/Globulin Ratio 0.67L CBC/BMP Laboratory Tests 07/11/19 13:14 07/11/19 14:38 Microbiology Microbiology 07/11/19 Gram Stain - Final, Resulted 07/11/19 Wound Culture, Resulted Pending 07/11/19 Blood Culture, Received Pending 07/11/19 Blood Culture, Received Pending Problems (1) Pneumonia Status: Acute Problem Text: 83 years old white male with past medical history of diabetes mellitus type 2, chronic hypoxic respiratory failure, oxygen dependent, peripher al neuropathy, vasculopathy, dyslipidemia, gastroesophageal reflux disease, constipation SD. Cellulitis of left foot. 2. Debility. Mild dementia, was brought in with worsening physical status and possible follow-up last night of unknown mechanism was found on the floor. Patient being admitted with the pneumonia and left foot infection. Patient chest x-ray is consistent with moderate right mid lung infiltrate. CMP is pending. Lactic acid 4.2 WBC count of 33.2, hemoglobin 12, platelets 247 Pt received 1 dose of CCEFTROLINE in ED Admit patient to medical floor IV fluid normal saline 100 mL per hour ceftroline 300 mg IV every 12 hours to cover pneumonia as well as possible MRSA infection of left foot Bed rest with bathroom privileges Diet consistent carbohydrate diet DVT prophylaxis with heparin Continue home meds except antidiabetic meds A.m. level work has been ordered (2) Cellulitis of foot Status: Acute Problem Text: Patient was recently treated MRSA infection of the left foot and he had a fifth toe amputated by Dr. Wang Patient will be started on IV antibiotics and will put in consult for podiatry again for further evaluation Further, as per podiatry recommendations (3) DM2 (diabetes mellitus, type 2) Status: Chronic Problem Text: Hold the by mouth hypoglycemic agents Fingerstick blood sugar every before meals and at bedtime with coverage Will monitor patient's fingerstick and place him on insulin if needed until the patient is all his workup and procedures completed that he can be restarted back on his oral hypoglycemic agents. (4) PVD (peripheral vascular disease) Status: Chronic Problem Text: Continue home meds (5) COPD (chronic obstructive pulmonary disease) Status: Acute Problem Text: Continue home meds O2 by 3 L nasal cannula to keep pulse ox more than 88 Plan / VTE VTE Prophylaxis Ordered?: Yes MAG GUZMAN MD Jul 11, 2019 15:38
[2019-07-11] MEDS: NS 1,000 ML IV SCH (15:51)
[2019-07-11] MEDS: GABAPENTIN 100 MG CAP PO SCH ×2 (15:51→21:51)
--- NOTE | 2019-07-11 15:55 | ECGEPIP ---
[facility] - ED Test Date: 2019-07-11 Pat Name: AMELIE HANSON Department: Room: - Gender: Male [employer]: : 1935 Requested By: WHITNEY Paez Order Number: [id number] Reading MD: Ankur Morales Measurements Intervals [place] Rate: 97 P: 46 OK: 157 QRS: 46 QRSD: 84 T: 64 QT: 328 QTc: 418 Interpretive Statements SINUS RHYTHM NO PRIORS FOR COMPARISON Electronically Signed on 07-11-2019 15:54:44 EST by Ankur Morales
[2019-07-11 16:55] VITALS: BP 119/54
[2019-07-11] MEDS: HumaLOG INSULIN (NovoLOG) PER UNIT SC SCH ×2 (18:32→21:00)
[2019-07-11] MEDS: ADVAIR HFA 230/21MCG INHALER INH SCH (21:17)
[2019-07-11 21:23] VITALS: O2SAT 91
[2019-07-11] MEDS: PRAVASTATIN 20 MG TAB PO SCH (21:51)
[2019-07-11] MEDS: DOCUSATE SODIUM 100 MG CAP PO SCH (21:51)
[2019-07-11] MEDS: HEPARIN SOD (PORCINE) 5000 UNITS/ML VIAL SC SCH (21:52)
[2019-07-11 22:00] VITALS: BP 127/56
[2019-07-12] MEDS: NS 1,000 ML IV SCH ×3 (02:32→22:00)
[2019-07-12] MEDS: CEFTAROLINE FOSAMIL 400 MG in D5W MINI-BAG PLUS 50 ML IV SCH ×2 (04:42→16:19)
[2019-07-12 06:00] VITALS: BP 121/58
[2019-07-12 06:25] LABS: HEMATOCRIT 32.9 % (42.0-52.0); HEMOGLOBIN 10.1 g/dl (13.5-17.5); MEAN CORPUSCULAR HEMOGLOBIN 27.7 pg (27.0-33.0); MEAN CORPUSCULAR HGB CONC 30.7 g/dl (32.0-36.5); MEAN CORPUSCULAR VOLUME 90.4 fl (80.0-96.0); PLATELET COUNT, AUTOMATED 190 10^3/uL (150-450); RED BLOOD COUNT 3.64 10^6/uL (4.30-6.10); WHITE BLOOD COUNT 15.4 10^3/uL (4.0-10.0)
[2019-07-12 06:39] LABS: ALBUMIN 2.3 GM/DL (3.2-5.2); ALT/SGPT 11 U/L (12-78); BILIRUBIN,TOTAL 0.3 MG/DL (0.2-1.0); BLOOD UREA NITROGEN 23 MG/DL (7-18); CALCIUM LEVEL 8.9 MG/DL (8.8-10.2); CARBON DIOXIDE LEVEL 27 MEQ/L (21-32); CHLORIDE LEVEL 107 MEQ/L (98-107); CREATININE FOR GFR 0.76 MG/DL (0.70-1.30); GLOMERULAR FILTRATION RATE > 60.0 (>35); GLUCOSE, FASTING 85 MG/DL (70-100); MAGNESIUM LEVEL 1.7 MG/DL (1.8-2.4); POTASSIUM SERUM 3.6 MEQ/L (3.5-5.1); SODIUM LEVEL 142 MEQ/L (136-145); TOTAL PROTEIN 6.1 GM/DL (6.4-8.2)
[2019-07-12] MEDS: HumaLOG INSULIN (NovoLOG) PER UNIT SC SCH ×4 (07:30→21:00)
[2019-07-12] MEDS ORDERED: MAG SULF 1GM/100ML (MAG RUN) 1 GM in IV 1 EA IV ONE (07:30)
[2019-07-12] MEDS: ADVAIR HFA 230/21MCG INHALER INH SCH ×2 (07:38→21:34)
[2019-07-12] MEDS: CLOPIDOGREL 75 MG TAB PO SCH (08:05)
[2019-07-12] MEDS: predniSONE 10 MG TAB PO SCH (08:05)
[2019-07-12] MEDS: ASCORBIC ACID 500 MG TAB PO SCH (08:05)
[2019-07-12] MEDS: OMEPRAZOLE 20 MG CAP PO SCH (08:05)
[2019-07-12] MEDS: HEPARIN SOD (PORCINE) 5000 UNITS/ML VIAL SC SCH ×2 (08:05→22:09)
[2019-07-12] MEDS: GABAPENTIN 100 MG CAP PO SCH ×3 (08:05→22:10)
[2019-07-12] MEDS: DOCUSATE SODIUM 100 MG CAP PO SCH ×2 (08:05→22:09)
[2019-07-12] MEDS: ASPIRIN 81 MG ENTERIC TAB PO SCH (08:05)
--- NOTE | 2019-07-12 11:10 | IPNPDOC ---
Subjective Date Seen The patient was seen on 07/12/19. Subjective Chief Complaint/HPI Patient comfortable offers no new complaints, afebrile General: Denies: ROS Unobtainable, Chills, Night Sweats, Fatigue, Malaise, Normal Appetite, Other Symptoms Constitutional: Denies: Chills, Fever, Malaise, Night Sweats, Weakness, Fatigue, Weight Loss, Lethargy, Other Pulmonary: Denies: Dyspnea, Cough, Pleuritic Chest Pain, Other Symptoms Cardiovascular: Denies: Chest Pain, Palpitations, Orthopnea, Paroxysmal Noc. Dyspnea, Edema, Lt Headedness, Other Symptoms Gastrointestinal: Denies: Nausea, Vomiting, Abdominal Pain, Diarrhea, Constipation, Melena, Hematochezia, Other Symptoms Musculoskeletal: Denies: Neck Pain, Back Pain, Shoulder Pain, Arm Pain, Hand Pain, Leg Pain, Foot Pain, Joint Pain, Muscle Pain, Spasms, Other Symptoms Neurological: Denies: Weakness, Numbness, Incoordination, Change in speech, Confusion, Seizures, Other Symptoms Objective Physical Examination General Exam: Positive: Alert, Cooperative, Other Neck Exam: Positive: Supple Chest Exam: Positive: Other (crackles at the right base. Decreased breath sounds bilaterally but no wheezing) Heart Exam: Positive: Rate Normal, Normal S1, Normal S2 Abdomen Exam: Positive: Normal bowel sounds, Soft Extremity Exam: Positive: Other (dressing on left foot. Unable to see the wound as dressing was recently checked) Neuro Exam: Positive: Strength at 5/5 X4 ext, Sensation Intact Psych Exam: Positive: Mood NL Assessment /Plan Problems (1) Cellulitis of foot Status: Acute Problem Text: Patient has been started on ceftroline He seems to be responding it very well. His WBC count is 15.4 Will continue the same antibiotics. The patient is asymptomatic and clinically stable Podiatry consult with Dr. francisco has been requested and awaiting his recommendations (2) Pneumonia Status: Acute Problem Text: Continue present antibiotics as patient seems to be responding Repeat chest x-ray in a day or 2 Repeat CBC in a.m. (3) COPD (chronic obstructive pulmonary disease) Status: Chronic Problem Text: Continue home meds (4) DM2 (diabetes mellitus, type 2) Status: Chronic Problem Text: Oral hypoglycemic agents on hold as patient might need IV contrast.for radiological studies or procedures Patient had been started on fingerstick blood sugar of Before meals and at bedtime with coverage Restart home oral hypoglycemic agents before discharge (5) PVD (peripheral vascular disease) Status: Chronic Problem Text: Patient follows with as outpatient (6) Hypomagnesemia Status: Acute Problem Text: Magnesium supplement provided Plan/VTE VTE Prophylaxis Ordered?: Yes VS, I&O, 24H, Fishbone Vital Signs/I&O Vital Signs Date Time Temp Pulse Resp B/P (MAP) Pulse Ox O2 Delivery O2 Flow Rate FiO2 07/12/19 06:00 98.8 81 17 121/58 (79) 94 Room Air 07/11/19 21:23 2.0 28 I&O- Last 24 Hours up to 6 AM 07/12/19 06:00 Intake Total 1400 ml Output Total 1150 ml Balance 250 ml Laboratory Data 24H LABS Laboratory Tests 2 07/11/19 13:14: Immature Granulocyte % (Auto) 1.6, Neutrophils (%) (Auto) 89.8H, Lymphocytes (%) (Auto) 2.2L, Monocytes (%) (Auto) 6.0H, Eosinophils (%) (Auto) 0.1, Basophils (%) (Auto) 0.3, Neutrophils # (Auto) 29.8H, Lymphocytes # (Auto) 0.7L, Monocytes # (Auto) 2.0H, Eosinophils # (Auto) 0.0, Basophils # (Auto) 0.1, Nucleated Red Blood Cells % (auto) 0.0, Prothrombin Time 14.2H, Prothromb Time International Ratio 1.13, Lactic Acid Level 4.2*H 07/11/19 14:38: Anion Gap 10, Glomerular Filtration Rate 54.8, Calcium Level 8.9, Total Bilirubin 0.5, Direct Bilirubin 0.2, Aspartate Amino Transf (AST/SGOT) 9, Alanine Aminotransferase (ALT/SGPT) 14, Alkaline Phosphatase 47, Total Creatine Kinase 32L, Creatine Kinase MB 1.1, Creatine Kinase MB Relative Index 3.44, Troponin I 0.03, Total Protein 7.0, Albumin 2.8L, Albumin/Globulin Ratio 0.67L 07/11/19 17:25: Bedside Glucose (Misc Panel) 145H 07/11/19 17:47: Lactic Acid Followup at 4 Hours 3.5*H 07/11/19 20:53: Bedside Glucose (Misc Panel) 131H 07/12/19 05:27: Nucleated Red Blood Cells % (auto) 0.0, Anion Gap 8, Glomerular Filtration Rate > 60.0, Lactic Acid Level 1.0, Calcium Level 8.9, Magnesium Level 1.7L, Total Bilirubin 0.3, Aspartate Amino Transf (AST/SGOT) 8, Alanine Aminotransferase (ALT/SGPT) 11L, Alkaline Phosphatase 44L, Total Protein 6.1L, Albumin 2.3L, Albumin/Globulin Ratio 0.61L CBC/BMP Laboratory Tests 07/11/19 13:14 07/11/19 14:38 07/12/19 05:27 Microbiology Microbiology 07/11/19 Gram Stain - Final, Resulted 07/11/19 Wound Culture, Resulted Pending 07/11/19 Blood Culture, Received Pending 07/11/19 Blood Culture - Preliminary, Resulted MAG GUZMAN MD Jul 12, 2019 11:10
[2019-07-12 14:00] VITALS: BP 142/64
[2019-07-12 22:00] VITALS: BP 137/63
[2019-07-12] MEDS: PRAVASTATIN 20 MG TAB PO SCH (22:10)
[2019-07-13] MEDS: NS 1,000 ML IV SCH ×2 (00:31→17:19)
[2019-07-13] MEDS: CEFTAROLINE FOSAMIL 400 MG in D5W MINI-BAG PLUS 50 ML IV SCH (04:19)
[2019-07-13 06:00] VITALS: BP 130/60
[2019-07-13] MEDS: HumaLOG INSULIN (NovoLOG) PER UNIT SC SCH ×4 (08:10→20:29)
[2019-07-13] MEDS: predniSONE 10 MG TAB PO SCH (08:11)
[2019-07-13] MEDS: OMEPRAZOLE 20 MG CAP PO SCH (08:11)
[2019-07-13] MEDS: ASCORBIC ACID 500 MG TAB PO SCH (08:11)
[2019-07-13] MEDS: CLOPIDOGREL 75 MG TAB PO SCH (08:11)
[2019-07-13] MEDS: GABAPENTIN 100 MG CAP PO SCH ×3 (08:11→20:40)
[2019-07-13] MEDS: DOCUSATE SODIUM 100 MG CAP PO SCH ×2 (08:11→20:41)
[2019-07-13] MEDS: ASPIRIN 81 MG ENTERIC TAB PO SCH (08:11)
[2019-07-13] MEDS: HEPARIN SOD (PORCINE) 5000 UNITS/ML VIAL SC SCH ×2 (08:11→20:41)
[2019-07-13] MEDS: ADVAIR HFA 230/21MCG INHALER INH SCH ×2 (09:01→20:13)
[2019-07-13] MEDS ORDERED: VANCOMYCIN HCL 500 MG in D5W MINI-BAG PLUS 100 ML IV ONE (11:00)
[2019-07-13] MEDS: VANCOMYCIN HCL 1,000 MG, VIAL MATE ADAPTER 1 EACH in D5W 250 ML IV SCH (12:28)
[2019-07-13 14:00] VITALS: BP 147/66
--- NOTE | 2019-07-13 19:45 | IPNPDOC ---
Date Seen The patient was seen on 07/13/19. Progress Note SUBJECTIVE: 83 y.o male w/ PMH of PVD, GERD, DM & COPD was admitted for PNA & infected foot wound. He was treated w/ Ceftaroline with slight clinical i mprovement and significant improvement in WBC count. His wound & blood cultures have grown MRSA. He currently reports slight dyspnea, especially with exertion, non-productive cough at his baseline with drainage from wounds on his L foot. He has no other complaints at this time; he denies any chest pain, N/V/D or abdominal pain. 10 point review of system is negative except for above PHYSICAL EXAMINATION: VITAL SIGNS: Please see below. GENERAL: No distress HEENT: Normocephalic, atraumatic, moist mucous membranes NECK: Supple CARDIOVASCULAR EXAMINATION: S1, S2, no murmurs RESPIRATORY EXAMINATION: Scattered rhonchi, no wheezing ABDOMINAL EXAMINATION: Soft, nontender, nondistended, positive bowel sounds EXTREMITIES: L foot with two open wounds draining small amount of pus SKIN: No rash NEUROLOGICAL EXAMINATION: Alert and oriented 3, no focal deficits PSYCHIATRIC EXAMINATION: Calm and cooperative LABORATORY DATA, IMAGING STUDIES, MICROBIOLOGY: Please see below. ASSESSMENT AND PLAN:83 y.o male w/ PMH of COPD, DM, PVD & GERD was admitted for PNA/infected foot wounds, now with MRSA bacteremia. PROBLEMS: 1. MRSA Bacteremia - Likely from infected foot wounds, Podiatry consult pending, repeat blood cultures, TTE ordered, Vancomycin & Merrem. 2. COPD - stable, continue home regimen, continue supplemental oxygen to maintain O2 sats 88-92% 3. PVD - continue aspirin, plavix & statin 4. DM - sliding scale insulin before meals and at bedtime 5. GERD - continue omeprazole DVT Prophylaxis: Heparin SubQ GI Prophylaxis: home PPI VS, I&O, 24H, Fishbone Vital Signs/I&O Vital Signs Date Time Temp Pulse Resp B/P (MAP) Pulse Ox O2 Delivery O2 Flow Rate FiO2 07/13/19 14:00 97.7 84 22 147/66 (93) 94 Nasal Cannula 3.0 07/11/19 21:23 28 I&O- Last 24 Hours up to 6 AM 07/13/19 06:00 Intake Total 3680 ml Output Total 2500 ml Balance 1180 ml Laboratory Data 24H LABS Laboratory Tests 2 07/12/19 20:55: Bedside Glucose (Misc Panel) 135H 07/13/19 06:37: Bedside Glucose (Misc Panel) 101 07/13/19 11:42: Bedside Glucose (Misc Panel) 156H 07/13/19 16:51: Bedside Glucose (Misc Panel) 191H Microbiology Microbiology 07/11/19 Gram Stain - Final, Complete 07/11/19 Wound Culture - Final, Complete Staph.aureus Methicillin Resis 07/11/19 Blood Culture - Preliminary, Resulted 07/11/19 Blood Culture - Preliminary, Resulted Staphylococcus Aureus WAYNE WALLS MD Jul 13, 2019 19:45
[2019-07-13] MEDS: PRAVASTATIN 20 MG TAB PO SCH (20:40)
[2019-07-13] MEDS: MEROPENEM INJ 1 GM in IV 1 EA IV SCH (20:40)
[2019-07-13 22:00] VITALS: BP 151/71
[2019-07-14] MEDS: VANCOMYCIN HCL 1,000 MG, VIAL MATE ADAPTER 1 EACH in D5W 250 ML IV SCH ×3 (00:10→23:48)
[2019-07-14] MEDS: NS 1,000 ML IV SCH (03:37)
[2019-07-14] MEDS: MEROPENEM INJ 1 GM in IV 1 EA IV SCH ×3 (03:38→19:43)
[2019-07-14 06:00] VITALS: BP 152/74
[2019-07-14 06:13] LABS: HEMATOCRIT 32.1 % (42.0-52.0); HEMOGLOBIN 9.7 g/dl (13.5-17.5); MEAN CORPUSCULAR HEMOGLOBIN 26.7 pg (27.0-33.0); MEAN CORPUSCULAR HGB CONC 30.2 g/dl (32.0-36.5); MEAN CORPUSCULAR VOLUME 88.4 fl (80.0-96.0); PLATELET COUNT, AUTOMATED 201 10^3/uL (150-450); RED BLOOD COUNT 3.63 10^6/uL (4.30-6.10); WHITE BLOOD COUNT 7.5 10^3/uL (4.0-10.0)
[2019-07-14 06:35] LABS: ALBUMIN 2.2 GM/DL (3.2-5.2); ALT/SGPT 12 U/L (12-78); BILIRUBIN,TOTAL 0.3 MG/DL (0.2-1.0); BLOOD UREA NITROGEN 10 MG/DL (7-18); CALCIUM LEVEL 8.7 MG/DL (8.8-10.2); CARBON DIOXIDE LEVEL 28 MEQ/L (21-32); CHLORIDE LEVEL 107 MEQ/L (98-107); CREATININE FOR GFR 0.72 MG/DL (0.70-1.30); GLOMERULAR FILTRATION RATE > 60.0 (>35); GLUCOSE, FASTING 103 MG/DL (70-100); MAGNESIUM LEVEL 1.6 MG/DL (1.8-2.4); PHOSPHORUS LEVEL 3.2 MG/DL (2.5-4.9); POTASSIUM SERUM 3.8 MEQ/L (3.5-5.1); SODIUM LEVEL 142 MEQ/L (136-145); TOTAL PROTEIN 6.7 GM/DL (6.4-8.2)
--- NOTE | 2019-07-14 06:36 | ECHO ---
DATE OF STUDY: 07/13/2019 REFERRING PHYSICIAN: Dr. Tameka Shepherd INDICATION: Methicillin-resistant Staphylococcus aureus bacteremia. HEIGHT: 72 inches. WEIGHT: 174 pounds. 2D MEASUREMENTS: Aortic root: 3.4 cm Proximal ascending aorta: 3.1 cm Left atrium: 4.2 cm Ventricular septum: 0.99 cm Posterior wall: 1.05 cm Left ventricle diastole: 4.5 cm Left ventricle systole: 3.0 cm Inferior vena cava: 1.9 cm DOPPLER MEASUREMENTS: Aortic valve velocity: 160 cm/s LVOT velocity: 86.8 cm/s LVOT VTI: 22.3 cm No mitral regurgitation. No aortic regurgitation. Mitral E velocity: 75.0 cm/s Mitral A velocity: 86.1 cm/s Mitral A acceleration time 215 milliseconds No tricuspid regurgitation. No pulmonic regurgitation. Pulmonary acceleration time 151 milliseconds MITRAL ANNULAR TISSUE DOPPLER: E prime septal: 6.53 cm/s E prime lateral: 7.72 cm/s DESCRIPTION: Rhythm was sinus. Image quality was fair. No aortic arch because the aortic arch suprasternal window was technically difficult. No pericardial effusion. CONCLUSIONS: 1. No vegetation is identified on any cardiac valve. 2. Mild aortic valve sclerosis of a three-cusp aortic valve. No aortic regurgitation. 3. Mild mitral annular calcification. No mitral regurgitation. 4. Normal left ventricle internal dimensions and wall thickness. Normal regional left ventricle (LV) wall motion and wall thickening. Normal LV systolic functioning. Left ventricular ejection fraction (LVEF) 60% by visual estimate. Grade 1 LV diastolic dysfunction (relaxation filling pattern). 5. Otherwise unremarkable appearing echocardiogram Doppler findings.
[2019-07-14] MEDS: ADVAIR HFA 230/21MCG INHALER INH SCH ×2 (07:20→19:54)
[2019-07-14] MEDS: HumaLOG INSULIN (NovoLOG) PER UNIT SC SCH ×4 (07:54→21:00)
[2019-07-14] MEDS: GABAPENTIN 100 MG CAP PO SCH ×3 (07:55→21:39)
[2019-07-14] MEDS: DOCUSATE SODIUM 100 MG CAP PO SCH ×2 (07:55→21:00)
[2019-07-14] MEDS: OMEPRAZOLE 20 MG CAP PO SCH (07:55)
[2019-07-14] MEDS: ASCORBIC ACID 500 MG TAB PO SCH (07:55)
[2019-07-14] MEDS: ASPIRIN 81 MG ENTERIC TAB PO SCH (07:55)
[2019-07-14] MEDS: predniSONE 10 MG TAB PO SCH (07:55)
[2019-07-14] MEDS: HEPARIN SOD (PORCINE) 5000 UNITS/ML VIAL SC SCH ×2 (07:55→21:38)
[2019-07-14] MEDS: CLOPIDOGREL 75 MG TAB PO SCH (07:55)
[2019-07-14] MEDS: MAG SULF 1GM/100ML (MAG RUN) 1 GM in IV 1 EA IV SCH ×4 (08:37→13:06)
[2019-07-14] MEDS ORDERED: BUPIVACAINE HCL 0.5% 10 ML VIAL As Ordered ONE (11:11)
[2019-07-14] MEDS ORDERED: LIDOCAINE 1% MDV 20ML VIAL As Ordered ONE (11:11)
[2019-07-14] MEDS ORDERED: fentaNYL 100 MCG/2 ML INJECTION (J3010) As Ordered ONE (11:21)
[2019-07-14] MEDS ORDERED: PROPOFOL 200 MG/20 ML VIAL As Ordered ONE (11:23)
[2019-07-14] MEDS ORDERED: LIDOCAINE 2% INJ 100 MG/5 ML SDV (FOR ANES.) As Ordered ONE (11:23)
[2019-07-14] MEDS ORDERED: MIDAZOLAM INJ 2 MG/2 ML VIAL (J2250) As Ordered ONE (11:43)
--- NOTE | 2019-07-14 13:48 | PHACANCOPD ---
PHARMACY VANCOMYCIN DOSING Pt Demographics Demographics Patient Age:83 , Weight:79.000 , Gender: male Adjusted Body Weight Date: 07/14/19, Adjusted Body Weight: Kg Events Past 24 Hours Events Past 24 Hours: NO: Dialysis, Diuretic Therapy, Change in CrCl, Fever, Elevation in WBC, Pending Diagnostics, Pending Procedures, Other Vancomycin Vancomycin indication: MRSA BACTEREMIA Vancomycin Target Ranges: 15-20 mcg/ml Vancomycin Load Y/N: Yes Load Dose Date Time Vancomycin Load Dose: 1500MG Date: 07/13/19 Time: 1200 Vancomycin Dose Date: 07/14/19. Current Vancomycin Dose: [1GM IV Q12H@12] Intermittent Dosing?: No Labs Labs Item Value Date Time White Blood Count 33.2 10^3/uL *H 07/11/19 1314 White Blood Count 15.4 10^3/uL H 07/12/19 0527 White Blood Count 7.5 10^3/uL 07/14/19 0554 Lactic Acid Followup at 4 Hours 3.5 MMOL/L *H 07/11/19 1747 Lactic Acid Level 1.0 MMOL/L 07/12/19 0527 Lactic Acid Level 4.2 MMOL/L *H 07/11/19 1314 Creatinine 1.33 MG/DL H 07/11/19 1438 Creatinine 0.76 MG/DL 07/12/19 0527 Creatinine 0.72 MG/DL 07/14/19 0554 Vital Signs Label Value Date Time Patient Temperature 98.3 degrees F 07/14/19 0600 Temperature Source Oral 07/14/19 0600 Micro Microbiology 07/13/19 Blood Culture, Received Pending 07/13/19 Blood Culture, Received Pending 07/11/19 Gram Stain - Final, Complete 07/11/19 Wound Culture - Final, Complete Staph.aureus Methicillin Resis 07/11/19 Blood Culture - Preliminary, Resulted Staphylococcus Aureus 07/11/19 Blood Culture - Final, Complete Staph.aureus Methicillin Resis Creatinine Clearance Date:07/14/19. Creatinine Clearance: . Assessment and Plan Maintaining Current Dose?: Yes Reason for dose change: No Dose Change Pharmacist Note Pharmacist Note Date: 07/14/19. Pharmacist note: Patient was admitted with a left foot infection and pneumonia. His wound and blood cultures x2 have grown MRSA. Patient was initiated on Vancomycin with a 1500mg load and continued on 1gm IV q12h. We will obtain a trough on 07/15 at 11am to ensure patient is within therapeutic range. We will continue to monitor and make adjustments as necessary. KATHERINE LEE PHARMACY Jul 14, 2019 13:48
[2019-07-14 14:00] VITALS: BP 154/73
--- NOTE | 2019-07-14 18:50 | CR ---
DATE OF CONSULTATION: 07/14/2019 REASON FOR CONSULTATION: Left foot infection. Francois Lino is a pleasant 83-year-old male who was admitted on 07/11/2019 due to left foot pain. He noted worsening functioning, and his son brought him to the hospital for admission. He has been treated with intravenous (IV) antibiotics with some improvement but continues to have drainage and necrosis coming from his left foot. PAST MEDICAL HISTORY: Significant for: 1. Diabetes with neuropathy. 2. Peripheral vascular disease. 3. Chronic obstructive pulmonary disease (COPD), 4. History of pneumonia. PAST SURGICAL HISTORY: Left foot 5th toe amputation. ALLERGIES: None. SOCIAL HISTORY: Former smoker. Labs are reviewed. White blood cell count on admission was 32. Today it is 7.5. Lower extremity examination: There are superficial ulcerations to the right foot without any erythema. On the left foot there is a 5th toe amputation and lateral wounds with significant purulence and necrosis. ASSESSMENT: An 83-year-old male with left foot cellulitis, abscess. PLAN: Patient for operating room now for incision and drainage, to be nothing by mouth. Continue current antibiotics.
[2019-07-14] MEDS: PRAVASTATIN 20 MG TAB PO SCH (21:38)
--- NOTE | 2019-07-14 21:41 | IPNPDOC ---
Date Seen The patient was seen on 07/14/19. Progress Note SUBJECTIVE: 83 y.o male w/ PMH of PVD, GERD, DM & COPD was admitted for PNA & infected foot wound. He was treated w/ Ceftaroline with slight clinical improvement and significant improvement in WBC count. His wound & blood cultures have grown MRSA. He currently reports slight dyspnea, especially with exertion, non-productive cough at his baseline with drainage from wounds on his L foot. He has no other complaints at this time; he denies any chest pain, N/V/D or abdominal pain. 07/14/19 No acute events, unchanged from yesterday, patient without any complaints at this time. He denies any worsening SOB, CP, nausea, vomiting or abdominal pain. Discussed case w/ Dr. Ramos, he evaluated the patient and plans for I&D in the OR today. 10 point review of system is negative except for above PHYSICAL EXAMINATION: VITAL SIGNS: Please see below. GENERAL: No distress HEENT: Normocephalic, atraumatic, moist mucous membranes NECK: Supple CARDIOVASCULAR EXAMINATION: S1, S2, no murmurs RESPIRATORY EXAMINATION: Scattered rhonchi, no wheezing ABDOMINAL EXAMINATION: Soft, nontender, nondistended, positive bowel sounds EXTREMITIES: L foot with two open wounds draining small amount of pus SKIN: No rash NEUROLOGICAL EXAMINATION: Alert and oriented 3, no focal deficits PSYCHIATRIC EXAMINATION: Calm and cooperative LABORATORY DATA, IMAGING STUDIES, MICROBIOLOGY: Please see below. ASSESSMENT AND PLAN:83 y.o male w/ PMH of COPD, DM, PVD & GERD was admitted for PNA/infected foot wounds, now with MRSA bacteremia. PROBLEMS: 1. MRSA Bacteremia - Likely from infected foot wounds, Podiatry consult appreciated, plan for I&D in OR today, repeat blood cultures negative to date, TTE w/o vegetation, continue Vancomycin & Merrem. 2. COPD - stable, continue home regimen, continue supplemental oxygen to maintain O2 sats 88-92% 3. PVD - continue aspirin, plavix & statin 4. DM - sliding scale insulin before meals and at bedtime 5. GERD - continue omeprazole DVT Prophylaxis: Heparin SubQ GI Prophylaxis: home PPI VS, I&O, 24H, Fishbone Vital Signs/I&O Vital Signs Date Time Temp Pulse Resp B/P (MAP) Pulse Ox O2 Delivery O2 Flow Rate FiO2 07/14/19 14:00 96.5 72 22 154/73 (100) 95 Nasal Cannula 3.0 07/11/19 21:23 28 I&O- Last 24 Hours up to 6 AM 07/14/19 06:00 Intake Total 1350 ml Output Total 2800 ml Balance -1450 ml Laboratory Data 24H LABS Laboratory Tests 2 07/14/19 05:54: Nucleated Red Blood Cells % (auto) 0.0, Anion Gap 7L, Glomerular Filtration Rate > 60.0, Calcium Level 8.7L, Phosphorus Level 3.2, Magnesium Level 1.6L, Total Bilirubin 0.3, Aspartate Amino Transf (AST/SGOT) 9, Alanine Aminotransferase (ALT/SGPT) 12, Alkaline Phosphatase 43L, Total Protein 6.7, Albumin 2.2L, Albumin/Globulin Ratio 0.49L 07/14/19 13:17: Bedside Glucose (Misc Panel) 167H 07/14/19 16:50: Bedside Glucose (Misc Panel) 279H CBC/BMP Laboratory Tests 07/14/19 05:54 Microbiology Microbiology 07/13/19 Blood Culture - Preliminary, Resulted No growth after 24 hours . All specim... 07/13/19 Blood Culture - Preliminary, Resulted No growth after 24 hours . All specim... 07/11/19 Gram Stain - Final, Complete 07/11/19 Wound Culture - Final, Complete Staph.aureus Methicillin Resis 07/11/19 Blood Culture - Preliminary, Resulted Staphylococcus Aureus 07/11/19 Blood Culture - Final, Complete Staph.aureus Methicillin Resis WAYNE WALLS MD Jul 14, 2019 21:41
[2019-07-14 22:00] VITALS: BP 151/74
[2019-07-15] MEDS: MEROPENEM INJ 1 GM in IV 1 EA IV SCH (04:03)
[2019-07-15 06:00] VITALS: BP 148/72
[2019-07-15 07:19] LABS: HEMATOCRIT 34.2 % (42.0-52.0); HEMOGLOBIN 10.3 g/dl (13.5-17.5); MEAN CORPUSCULAR HEMOGLOBIN 26.8 pg (27.0-33.0); MEAN CORPUSCULAR HGB CONC 30.1 g/dl (32.0-36.5); MEAN CORPUSCULAR VOLUME 88.8 fl (80.0-96.0); PLATELET COUNT, AUTOMATED 226 10^3/uL (150-450); RED BLOOD COUNT 3.85 10^6/uL (4.30-6.10); WHITE BLOOD COUNT 7.2 10^3/uL (4.0-10.0)
[2019-07-15] MEDS: ADVAIR HFA 230/21MCG INHALER INH SCH ×2 (07:22→19:18)
[2019-07-15 07:47] LABS: BLOOD UREA NITROGEN 13 MG/DL (7-18); CALCIUM LEVEL 8.9 MG/DL (8.8-10.2); CARBON DIOXIDE LEVEL 29 MEQ/L (21-32); CHLORIDE LEVEL 105 MEQ/L (98-107); CREATININE FOR GFR 0.75 MG/DL (0.70-1.30); GLOMERULAR FILTRATION RATE > 60.0 (>35); GLUCOSE, FASTING 114 MG/DL (70-100); MAGNESIUM LEVEL 1.9 MG/DL (1.8-2.4); PHOSPHORUS LEVEL 3.1 MG/DL (2.5-4.9); POTASSIUM SERUM 3.8 MEQ/L (3.5-5.1); SODIUM LEVEL 141 MEQ/L (136-145)
--- NOTE | 2019-07-15 08:59 | RO ---
DATE OF PROCEDURE: 07/14/2019 PREPROCEDURE DIAGNOSIS: Left foot ulceration and infection. POSTPROCEDURE DIAGNOSIS: Left foot ulceration and infection. PROCEDURE: Left foot incision and drainage. SURGEON: Steve Ramos DPM TEST ENGINEERING TECHNICIAN: None. ANESTHESIA: Monitored anesthesia care, preoperative injection of 15 mL of 1:1 mixture of 1% Lidocaine plain and 0.5% Marcaine plain. ESTIMATED BLOOD LOSS: 10 mL. MATERIALS: None. SPECIMENS: None. COMPLICATIONS: None. CONDITION: Stable. INDICATION: Francois Lino is an 83-year-old male who is admitted to the hospital with left foot infection. He has been being treated with antibiotics but has continued purulent drainage from his left foot. He presents today to the operating room for incision and drainage. The patient, side, site were identified and marked in the preoperative holding area. Consent was reviewed and obtained. All risks, complications and alternatives to the procedure were explained to the patient in detail and all questions were answered. PROCEDURE: The patient was brought to the operating room and placed on the operating room table in the supine position. Monitored anesthesia care was delivered by the anesthesia team. Preoperative injection of 15 mL of 1:1 mixture of 1% Lidocaine plain and 0.5% Marcaine plain were injected into the left foot. The left foot was prepped and draped in the normal sterile fashion. No tourniquet was used during the procedure. Wound was inspected and there was purulent drainage coming from the left lateral foot wound, most notably at the distal aspect. On examination, this appeared to be coming from necrotic tendon. The necrotic tendon and other nonviable tissue was irrigated with pulse lavage 1500 mL normal saline. No further purulent drainage or necrotic tissue was noted following lavage. The wound was packed with saline soaked gauze and dry sterile dressing. The patient was brought to the postanesthesia care unit (PACU), stable and neurovascularly intact. He will be readmitted to the floor for continued antibiotics and dressing changes. We will continue to follow.
[2019-07-15] MEDS: ASPIRIN 81 MG ENTERIC TAB PO SCH (09:25)
[2019-07-15] MEDS: CLOPIDOGREL 75 MG TAB PO SCH (09:25)
[2019-07-15] MEDS: OMEPRAZOLE 20 MG CAP PO SCH (09:25)
[2019-07-15] MEDS: DOCUSATE SODIUM 100 MG CAP PO SCH ×2 (09:25→20:16)
[2019-07-15] MEDS: HEPARIN SOD (PORCINE) 5000 UNITS/ML VIAL SC SCH ×2 (09:25→20:17)
[2019-07-15] MEDS: ASCORBIC ACID 500 MG TAB PO SCH (09:25)
[2019-07-15] MEDS: predniSONE 10 MG TAB PO SCH (09:25)
[2019-07-15] MEDS: GABAPENTIN 100 MG CAP PO SCH ×3 (09:25→20:16)
[2019-07-15] MEDS: HumaLOG INSULIN (NovoLOG) PER UNIT SC SCH ×4 (09:26→20:11)
[2019-07-15] MEDS: VANCOMYCIN HCL 1,000 MG, VIAL MATE ADAPTER 1 EACH in D5W 250 ML IV SCH (12:04)
--- NOTE | 2019-07-15 12:10 | IPN ---
DATE OF ADMISSION: 07/15/2019 Patient seen and examined. Denies overnight complaints. States the pain is tolerable. Negative for nausea, vomiting, fever, or chills. Vitals are reviewed. He has been afebrile. LABS: White cell count is 7.2. Lower extremity examination: No purulence or necrosis noted in the wounds. There is some granular tissue. Erythema is improved. ASSESSMENT: 83-year-old diabetic male with a peripheral vascular disease (PVD), diabetic ulceration status post incision and drainage. PLAN: I suspect he will be okay for discharge tomorrow and 2 weeks oral antibiotics. He has a wound care appointment with Dr. Gann Friday. He should make this appointment and followup with me the following week.
[2019-07-15 14:00] VITALS: BP 146/70
--- NOTE | 2019-07-15 18:34 | IPNPDOC ---
Date Seen The patient was seen on 07/15/19. Progress Note SUBJECTIVE: 83 y.o male w/ PMH of PVD, GERD, DM & COPD was admitted for PNA & infected foot wound. He was treated w/ Ceftaroline with slight clinical improvement and significant improvement in WBC count. His wound & blood cultures have grown MRSA. He currently reports slight dyspnea, especially with exertion, non-productive cough at his baseline with drainage from wounds on his L foot. He has no other complaints at this time; he denies any chest pain, N/V/D or abdominal pain. 07/14/19 No acute events, unchanged from yesterday, patient without any complaints at this time. He denies any worsening SOB, CP, nausea, vomiting or abdominal pain. Discussed case w/ Dr. Ramos, he evaluated the patient and plans for I&D in the OR today. 07/15/19 No acute events overnight, currently resting in chair, did really well with physical therapy, no complaints at this time. He denies any SOB, CP, N/V/D or abdominal pain. 10 point review of system is negative except for above PHYSICAL EXAMINATION: VITAL SIGNS: Please see below. GENERAL: No distress HEENT: Normocephalic, atraumatic, moist mucous membranes NECK: Supple CARDIOVASCULAR EXAMINATION: S1, S2, no murmurs RESPIRATORY EXAMINATION: Scattered rhonchi, no wheezing ABDOMINAL EXAMINATION: Soft, nontender, nondistended, positive bowel sounds EXTREMITIES: L foot with two open wounds draining small amount of pus SKIN: No rash NEUROLOGICAL EXAMINATION: Alert and oriented 3, no focal deficits PSYCHIATRIC EXAMINATION: Calm and cooperative LABORATORY DATA, IMAGING STUDIES, MICROBIOLOGY: Please see below. ASSESSMENT AND PLAN:83 y.o male w/ PMH of COPD, DM, PVD & GERD was admitted for PNA/infected foot wounds, now with MRSA bacteremia. PROBLEMS: 1. MRSA Bacteremia - Likely from infected foot wounds, Podiatry consult appreciated, s/p I&D yesterday, repeat blood cultures negative to date, TTE w/o vegetation, continue Vancomycin, Merrrem discontinued, tentatively plan for d/c tomorrow on oral antibiotics. 2. COPD - stable, continue home regimen, continue supplemental oxygen to maintain O2 sats 88-92% 3. PVD - continue aspirin, plavix & statin 4. DM - sliding scale insulin before meals and at bedtime 5. GERD - continue omeprazole DVT Prophylaxis: Heparin SubQ GI Prophylaxis: home PPI VS, I&O, 24H, Fishbone Vital Signs/I&O Vital Signs Date Time Temp Pulse Resp B/P (MAP) Pulse Ox O2 Delivery O2 Flow Rate FiO2 07/15/19 14:00 98.3 78 18 146/70 (95) 98 Room Air 07/14/19 22:00 3.0 07/11/19 21:23 28 I&O- Last 24 Hours up to 6 AM0 07/15/19 05:59 Intake Total 1560 ml Output Total 2770 ml Balance -1210 ml Laboratory Data 24H LABS Laboratory Tests 2 07/14/19 20:55: Bedside Glucose (Misc Panel) 133H 07/15/19 05:37: Bedside Glucose (Misc Panel) 106 07/15/19 06:29: Nucleated Red Blood Cells % (auto) 0.0, Anion Gap 7L, Glomerular Filtration Rate > 60.0, Calcium Level 8.9, Phosphorus Level 3.1, Magnesium Level 1.9 07/15/19 11:16: Vancomycin Level Trough 16.1 07/15/19 11:29: Bedside Glucose (Misc Panel) 140H 07/15/19 16:20: Bedside Glucose (Misc Panel) 200H CBC/BMP Laboratory Tests 07/15/19 06:29 Microbiology Microbiology 07/13/19 Blood Culture - Preliminary, Resulted No growth after 24 hours . All specim... 07/13/19 Blood Culture - Preliminary, Resulted No growth after 24 hours . All specim... 07/11/19 Gram Stain - Final, Complete 07/11/19 Wound Culture - Final, Complete Staph.aureus Methicillin Resis 07/11/19 Blood Culture - Final, Complete Staph.aureus Methicillin Resis 07/11/19 Blood Culture - Final, Complete Staph.aureus Methicillin Resis WAYNE WALLS MD Jul 15, 2019 18:34
--- NOTE | 2019-07-15 19:10 | REP ---
REASON: History of aspiration. COMPARISON EXAM: 07/11/2019 There is an unchanged patchy opacity in the right upper lobe. There is new right CP angle blunting. There is no change in the left lung. There is no change in the cardiomediastinal silhouette. The osseous structures are stable and intact. IMPRESSION:Right upper lobe pneumonia and with new small right pleural effusion. Electronically Signed by Lev Wallace DO 07/15/2019 07:50 P
[2019-07-15] MEDS: PRAVASTATIN 20 MG TAB PO SCH (20:16)
[2019-07-15 22:00] VITALS: BP 144/70
[2019-07-16] MEDS: VANCOMYCIN HCL 1,000 MG, VIAL MATE ADAPTER 1 EACH in D5W 250 ML IV SCH ×3
[2019-07-16 06:00] VITALS: BP 135/66
[2019-07-16 06:19] LABS: HEMATOCRIT 35.3 % (42.0-52.0); HEMOGLOBIN 10.6 g/dl (13.5-17.5); MEAN CORPUSCULAR HEMOGLOBIN 26.7 pg (27.0-33.0); MEAN CORPUSCULAR VOLUME 88.9 fl (80.0-96.0); PLATELET COUNT, AUTOMATED 239 10^3/uL (150-450); RED BLOOD COUNT 3.97 10^6/uL (4.30-6.10); WHITE BLOOD COUNT 8.2 10^3/uL (4.0-10.0)
[2019-07-16 06:44] LABS: BLOOD UREA NITROGEN 16 MG/DL (7-18); CARBON DIOXIDE LEVEL 30 MEQ/L (21-32); CHLORIDE LEVEL 103 MEQ/L (98-107); CREATININE FOR GFR 0.83 MG/DL (0.70-1.30); GLOMERULAR FILTRATION RATE > 60.0 (>35); GLUCOSE, FASTING 127 MG/DL (70-100); POTASSIUM SERUM 3.9 MEQ/L (3.5-5.1); SODIUM LEVEL 140 MEQ/L (136-145)
[2019-07-16] MEDS: ADVAIR HFA 230/21MCG INHALER INH SCH (07:38)
[2019-07-16] MEDS: ASCORBIC ACID 500 MG TAB PO SCH (08:49)
[2019-07-16] MEDS: predniSONE 10 MG TAB PO SCH (08:49)
[2019-07-16] MEDS: GABAPENTIN 100 MG CAP PO SCH (08:49)
[2019-07-16] MEDS: DOCUSATE SODIUM 100 MG CAP PO SCH (08:49)
[2019-07-16] MEDS: ASPIRIN 81 MG ENTERIC TAB PO SCH (08:49)
[2019-07-16] MEDS: CLOPIDOGREL 75 MG TAB PO SCH (08:49)
[2019-07-16] MEDS: OMEPRAZOLE 20 MG CAP PO SCH (08:49)
[2019-07-16] MEDS: HEPARIN SOD (PORCINE) 5000 UNITS/ML VIAL SC SCH (08:50)
[2019-07-16] MEDS: HumaLOG INSULIN (NovoLOG) PER UNIT SC SCH ×2 (08:51→13:06)
[2019-07-16] MEDS ORDERED: BACT800T5 PO (12:07)
--- NOTE | 2019-07-16 22:27 | DS.PDOC ---
Discharge Summary General Date of Admission Jul 11, 2019 at 15:14 Date of Discharge 07/16/19 Attending Physician: WAYNE WALLS MD Discharge Summary PROCEDURES PERFORMED DURING STAY: None ADMITTING DIAGNOSES: 1. Diabetic foot wound, MRSA bacteremia, PNA DISCHARGE DIAGNOSES: 1. Diabetic foot wound, MRSA bacteremia, PNA COMPLICATIONS/CHIEF COMPLAINT: Cellulitis Of Foot. HISTORY OF PRESENT ILLNESS: 83 y.o male w/ PMH of DM & PVD was admitted for diabetic food wound & PNA. He was found to have MRSA bacteremia as well, treated w/ Vancomycin & Merrem. He was evaluated by Podiatry (Dr. Ramos), underwent I&D in the OR, repeat blood cultures have been negative. He has had significant clinical improvement during his hospital stay, currently not displaying any clinical signs of systemic infection. He has been cleared for discharge by podiatry, he will be discharged on Bactrim to complete his antibiotic course. Hospital course: As above DISCHARGE MEDICATIONS: Please see below. ALLERGIES: Please see below. PHYSICAL EXAMINATION ON DISCHARGE: VITAL SIGNS: Please see below. GENERAL: no distress HEENT: moist mucous membranes NECK: supple CARDIOVASCULAR EXAMINATION: S1, S2 RESPIRATORY EXAMINATION: scattered rhonchi ABDOMINAL EXAMINATION: soft, non-tender, non-distended, +BS EXTREMITIES: L foot w/ dressing in place SKIN: no rash NEUROLOGICAL EXAMINATION: no focal deficits PSYCHIATRIC EXAMINATION: calm LABORATORY DATA: Please see below. PROGNOSIS: Fair ACTIVITY: As tolerated DIET: Cardiac DISCHARGE PLAN: Follow up w/ Occupational Analyst & PCP in 1-2 weeks DISPOSITION: 01 Home, Self-Care. DISCHARGE INSTRUCTIONS: 1. As above DISCHARGE CONDITION: Stable TIME SPENT ON DISCHARGE: Greater than 32 minutes. Vital Signs/I&Os Vital Signs Date Time Temp Pulse Resp B/P (MAP) Pulse Ox O2 Delivery O2 Flow Rate FiO2 07/16/19 06:00 97.0 72 19 135/66 (89) 97 Nasal Cannula 3.0 07/11/19 21:23 28 I&O- Last 24 Hours up to 6 AM 07/16/19 06:00 Intake Total 2670 ml Output Total 2575 ml Balance 95 ml Laboratory Data Labs 24H Laboratory Tests 2 07/16/19 05:53: Nucleated Red Blood Cells % (auto) 0.0, Anion Gap 7L, Glomerular Filtration Rate > 60.0, Calcium Level 9.0 07/16/19 11:24: Bedside Glucose (Misc Panel) 139H CBC/BMP Laboratory Tests 07/16/19 05:53 FSBS Laboratory Tests Test 07/16/19 11:24 Range/Units Bedside Glucose (Misc Panel) 139 83-110 MG/DL Microbiology Microbiology 07/13/19 Blood Culture - Preliminary, Resulted No Growth after 72 hours. All specime... 07/13/19 Blood Culture - Preliminary, Resulted No Growth after 72 hours. All specime... 07/11/19 Gram Stain - Final, Complete 07/11/19 Wound Culture - Final, Complete Staph.aureus Methicillin Resis 07/11/19 Blood Culture - Final, Complete Staph.aureus Methicillin Resis 07/11/19 Blood Culture - Final, Complete Staph.aureus Methicillin Resis Discharge Medications Scheduled Ascorbic Acid (Vitamin C) 500 Mg Tablet, 500 MG PO DAILY, (Reported) Aspirin (Aspir 81) 81 Mg Tablet.dr, 81 MG PO DAILY, (Reported) Cholecalciferol (Vitamin D3) (Vitamin D3) 400 Unit Capsule, 400 UNIT PO DAILY, (Reported) Clopidogrel Bisulfate (Clopidogrel) 75 Mg Tablet, 75 MG PO DAILY, (Reported) Gabapentin (Gabapentin) 100 Mg Capsule, 100 MG PO TID, (Reported) Glipizide (Glipizide ER) 5 Mg Tab.er.24, 5 MG PO DAILY, (Reported) Metformin HCl (Metformin HCl) 500 Mg Tablet, 1,000 MG PO BID, (Reported) Omeprazole (Omeprazole) 20 Mg Capsule.dr, 20 MG PO DAILY, (Reported) Pravastatin Sodium (Pravastatin Sodium) 40 Mg Tablet, 40 MG PO QHS, (Reported) Prednisone (Prednisone) 10 Mg Tablet, 10 MG PO DAILY, (Reported) Salmeterol/Fluticasone (Advair 500-50 Diskus) 1 Each Blst.w.dev, 1 PUFF INH BID, (Reported) Sulfamethoxazole/Trimethoprim (Bactrim Ds Tablet) 1 Each Tablet, 1 TAB PO BID Scheduled PRN Albuterol Sulfate (Albuterol Sulfate Hfa) 8.5 Gm Hfa.aer.ad, 1 PUFF INH Q4H PRN for SOB/WHEEZING, (Reported) Guaifenesin (Mucinex) 1,200 Mg Tab.er.12h, 1,200 MG PO BID PRN for CONGESTION, (Reported) Ipratropium/Albuterol Sulfate (Iprat-Albut 0.5-3(2.5) mg/3 ml) 3 Ml Ampul.neb, 1 VIAL PO QID PRN for SOB/WHEEZING, (Reported) Nystatin/Triamcin (Nystatin-Triamcinolone Cream) 15 Gm Cream..g., 1 APPLIC TOP BID PRN for BED SORES, (Reported) APPLY TO BUTTOCKS Tramadol HCl (Tramadol HCl) 50 Mg Tablet, 50 MG PO Q6H PRN for PAIN, (Reported) Allergies Coded Allergies: No Known Allergies (Unverified , 03/11/19) WAYNE WALLS MD Jul 16, 2019 22:27
== END 2019-07-16 14:13 | disposition home or self-care (01) | DRG 622 ==
LOC: M ED 12:39 → M ED INP 15:14 → M MSPAV 16:55
PROVIDERS: ADMIT Internal Medicine; ATTEND Internal Medicine
PROC: 0LBW0ZZ Excision of Left Foot Tendon, Open Approach (ICD-10-PCS; principal; 2019-07-14 11:30)
DX: E11.628 Type 2 diabetes mellitus with other skin complications (principal); J18.9 Pneumonia, unspecified organism; J96.11 Chronic respiratory failure with hypoxia; L03.116 Cellulitis of left lower limb; J44.9 Chronic obstructive pulmonary disease, unspecified; E11.42 Type 2 diabetes mellitus with diabetic polyneuropathy; E11.51 Type 2 diabetes mellitus with diabetic peripheral angiopathy without gangrene; E78.5 Hyperlipidemia, unspecified; E11.621 Type 2 diabetes mellitus with foot ulcer; K21.9 Gastro-esophageal reflux disease without esophagitis; K59.00 Constipation, unspecified; F03.90 Unspecified dementia, unspecified severity, without behavioral disturbance, psychotic disturbance, mood disturbance, and anxiety; B95.62 Methicillin resistant Staphylococcus aureus infection as the cause of diseases classified elsewhere; L97.511 Non-pressure chronic ulcer of other part of right foot limited to breakdown of skin; R53.81 Other malaise; Z89.422 Acquired absence of other left toe(s); Z99.81 Dependence on supplemental oxygen; Z90.49 Acquired absence of other specified parts of digestive tract; Z98.49 Cataract extraction status, unspecified eye; Z87.891 Personal history of nicotine dependence; Z79.82 Long term (current) use of aspirin; Z79.84 Long term (current) use of oral hypoglycemic drugs; Z79.52 Long term (current) use of systemic steroids; Z79.899 Other long term (current) drug therapy

== ENCOUNTER → 2019-08-27 | Outpatient (CLI) | payer MEDICARE, BC ==
[~2019-08-27] MED LIST changes: +BACT800T5 PO; +CVS400CA PO; +MUCI1TAB16 PO; +NYST1CRE15 TOP; +OMEP-218 PO
--- NOTE | 2019-08-27 14:37 | REP ---
Bilateral lower extremity arterial Doppler ultrasound: History: Intermittent claudication. Peripheral vascular disease. Findings: Ankle brachial indices could not be accomplished due to calcified vessels. Extensive calcific plaquing is observed bilaterally in the lower extremity arteries. Monophasic waveforms are observed in the left lower extremity at and distal to the tibioperoneal trunk and in the right lower extremity in the proximal [employer] and then distal AT A. Patent left sided stents are noted in the proximal SFA and distal SFA. Doppler velocity chart right lower extremity arteries:Right BUFFING WHEEL PRESSER 109 cm/sProfunda 72Proximal SFA 62Mid SFA 120Distal SFA 118Popliteal 50Proximal MARQUEZ 37Tibioperoneal trunk 63Proximal [employer] 51Distal [employer] unable to visualizeDistal MARQUEZ 37 Left lower extremity Doppler velocity arterial chart:Left BUFFING WHEEL PRESSER 79 cm/sProfunda 124Proximal SFA 66Mid SFA 72Distal SFA 31Popliteal 84Proximal MARQUEZ occludedTibioperoneal trunk 57Proximal [employer] 53Distal [employer] 17Distal MARQUEZ occluded Electronically Signed by Randy Hunter MD 08/27/2019 03:11 P
== END ==
LOC: M RAD 12:16
PROVIDERS: ATTEND Physician Assistant
DX: I70.213 Atherosclerosis of native arteries of extremities with intermittent claudication, bilateral legs (principal)